=== PATIENT | female | born 1940 | race Caucasian/White ===

== ENCOUNTER 2018-07-30 10:53 | Emergency (ER) | payer MEDICARE, SELFPAY ==
[2018-07-30 11:14] VITALS: BP 200/71; PULSE 64; RESP 15; TEMP 36.9; O2SAT 95; BMI 29.8
--- NOTE | 2018-07-30 11:58 | PC.NURSE ---
patient resting on bed
--- NOTE | 2018-07-30 12:47 | ED.BACK ---
HPI - Back Pain/Injury <JACOB Roca - Last Filed: 07/30/18 22:22> General Chief Complaint: Back Pain/Injury Stated Complaint: lower back/leg pain Time Seen by Provider: 07/30/18 12:47 Source: patient and family Mode of arrival: ambulatory Limitations: no limitations History of Present Illness HPI Narrative: Patient presents with chief complaint of lower back pain with sciatica radiating down her right leg. She states she has had this before, but never this bad. She has a history of spinal surgery. She does complain of weakness and numbness in her right leg. She denies any saddle anesthesia or urinary or bowel incontinence. She states this got worse yesterday. She denies any fever, nausea, vomiting, diarrhea, chest pain, shortness of breath, chills. She denies any fall or trauma recently. Related Data Home Medications Medication Instructions Recorded Confirmed Calcium Carbonate/Vitamin D 1 cap PO QDAY #0 05/21/11 (#CALCIUM) FOLIC ACID (Folic Acid) 1 mg PO QDAY #0 05/21/11 WARFARIN SODIUM (Warfarin Sodium) 2.5 mg PO HS #0 08/27/11 Previous Rx's Medication Instructions Recorded gabapentin 100 mg PO TID 10 Days #30 cap 07/30/18 oxycodone-acetaminophen [Percocet] 1 tab PO Q4-6H PRN #20 tab 07/30/18 prednisone 40 mg PO DAILY #10 tab 07/30/18 Allergies Allergy/AdvReac Type Severity Reaction Status Date / Time atracurium [ATRACURIUM] Allergy Unknown Verified 07/30/18 11:14 mivacurium [MIVACURIUM] Allergy Unknown Verified 07/30/18 11:14 succinylcholine Allergy Unknown Verified 07/30/18 11:14 [SUCCINYLCHOLINE] enalaprilat [From VASOTEC] AdvReac Mild cough Verified 07/30/18 11:14 Review of Systems <JACOB Roca - Last Filed: 07/30/18 22:22> Review of Systems GENERAL: Denies chills, fatigue, malaise, fever, sweats. HEENT: Denies sinus pain, ear pain, sore throat, difficulty swallowing, dizziness. RESPIRATORY: Denies dyspnea, cough, wheezing, hemoptysis, sputum. CARDIOVASCULAR: Denies chest pain, palpitations, orthopnea, edema, GASTROINTESTINAL: Denies nausea, vomiting, abdominal pain, diarrhea, constipation, melena. : Denies dysuria, frequency, incontinence, hematuria, urinary retention. MUSCULOSKELETAL: See HPI SKIN: Denies rash, skin lesions, or other NEUROLOGIC: See HPI PSYCHIATRIC: No concerning psychosocial issues. 12 point review of systems is negative except for those stated above Exam <Josette Tovar, DIRECTORY OPERATOR-BC - Last Filed: 07/30/18 22:22> Narrative Exam Narrative: GENERAL: This is a well-nourished, well-developed patient, lying on stretcher HEAD: Atraumatic. Normocephalic. No temporal or scalp tenderness. EYES: Pupils equal round and reactive. Extraocular motions intact. No scleral icterus. No injection or drainage. ENT: Nose without bleeding, purulent drainage or septal hematoma. Throat without erythema, tonsillar hypertrophy or exudate. Uvula midline. Airway patent. NECK: Trachea midline. No JVD or lymphadenopathy. Supple, nontender, no meningeal signs. CARDIOVASCULAR: Regular rate and rhythm without murmurs, gallops, or rubs. RESPIRATORY: Clear to auscultation. Breath sounds equal bilaterally. No wheezes, rales, or rhonchi. GASTROINTESTINAL: Abdomen soft, non-tender, nondistended. No hepato-splenomegaly, or palpable masses. No guarding. EXTREMITIES: No clubbing, cyanosis, or edema. No joint tenderness, effusion, or edema noted. BACK: Nontender C-spine. Noted to have tenderness in the L-spine palpation. Tenderness bilateral paraspinal muscle palpation.. NEURO: AOx3. Cranial nerves grossly intact. Strength is equal upper extremities bilaterally. Noted weakness and right leg. Patient is unable to lift her will right leg more than 3 in off the bed, compared to approximately 6 in with her left leg. Pedal pulses are intact bilaterally. Rectal tone is intact. Rectal exam performed with RN at bedside. SKIN: No rash or erythema. No rash, erythema or ecchymosis noted lower spine. Initial Vital Signs Initial Vital Signs: Vital Signs Temperature 98.5 F 07/30/18 11:14 Pulse Rate 64 07/30/18 11:14 Respiratory Rate 15 07/30/18 11:14 Blood Pressure 200/71 H 07/30/18 11:14 Pulse Oximetry 95 07/30/18 11:14 <Josette Garza DO - Last Filed: 08/02/18 07:45> Initial Vital Signs Initial Vital Signs: Vital Signs Temperature 98.5 F 07/30/18 11:14 Pulse Rate 64 07/30/18 11:14 Respiratory Rate 15 07/30/18 11:14 Blood Pressure 200/71 H 07/30/18 11:14 Pulse Oximetry 95 07/30/18 11:14 Course <JACOB Roca - Last Filed: 07/30/18 22:22> Orders Ordered: ED Orders 07/30/18 13:00 Urinalysis and Microscopic Stat 07/30/18 13:08 CT lumbar spine wo con Stat Vital Signs - 8 hr 07/30/18 14:58 Pulse Rate 68 Respiratory Rate 15 Blood Pressure [Left Arm] 177/62 H Pulse Oximetry 97 <Josette Garza DO - Last Filed: 08/02/18 07:45> Orders Ordered: ED Orders 07/30/18 13:00 Urinalysis and Microscopic Stat 07/30/18 13:08 CT lumbar spine wo con Stat Vital Signs - 8 hr 07/30/18 14:58 Pulse Rate 68 Respiratory Rate 15 Blood Pressure [Left Arm] 177/62 H Pulse Oximetry 97 MDM - Back Pain/Injury <JACOB Roca Last Filed: 07/30/18 22:22> Differential Diagnosis Differential diagnosis: Likely lumbar radiculopathy, sciatica, strain of lumbar region, renal colic, pyelonephritis and thoracic back pain Lab Data Lab Results 07/30/18 Range/Units 13:00 Urine Color Yellow Urine Appearance Clear Urine pH 7.0 (4.5-8.0) Ur Specific [place] <=1.005 (1.000-1.035) Urine Protein Negative (Negative) Urine Glucose (UA) Negative (Normal) g/dL Urine Ketones Negative (NEGATIVE) Urine Occult Blood Negative (Negative) Urine Nitrate Negative (Negative) Urine Bilirubin Negative (NEGATIVE) Urine Urobilinogen 0.2 (0.2) E.U./dL Ur Leukocyte Esterase Negative (NEGATIVE) Urine RBC None seen (0-5/HPF) Urine WBC None seen (0-5/HPF) Ur Squamous Epith Cells 0-1 /hpf Urine Bacteria None seen (None) Ur Culture Indicated? Cult not indicated Micro UA Comment Microscopic normal Imaging Data spine ct: Radiologist's impression: [address] [address] [address] Scan Report Signed Patient: Shiela Brady MR#: [id number] : 1940 Acct:[id number] Age/Sex: 78 / F Date of Service: 07/30/18 Loc: ED Accession Number: [id number] Procedure: CT lumbar spine wo con Ordering Provider: Josette Tovar PROCEDURE: CT LUMBAR SPINE WO CON INDICATIONS: r leg weakness TECHNIQUE: Noncontrast 3 mm thick sections acquired from the T12 level to the sacrum. Sagittal and coronal reformats were constructed. For radiation dose reduction, the following was used: automated exposure control. COMPARISON: [facility], CT, ABDOMEN/PELVIS WITH CONTRAST, 02/21/2014, 11:04. [facility], CT, ABDOMEN/PELVIS WITH CONTRAST, 08/27/2011, 19:27. [facility], MR, L-SPINE W&WO CONTRAST, 03/08/2014, 7:53. FINDINGS: Image quality: Excellent. Bones: Patient is status post posterior fixation from L3-L5. Patient is status post L3-4 and L4-5 discectomy. There is mild leftward curvature of the lumbar spine centered at L1. This there is grade II L4 on L5 anterolisthesis and destruction of the anterior superior L5 endplate which is unchanged when compared with the MRI lumbar spine dated 03/08/14. Severe degenerative change is present throughout the lumbar spine including multilevel disc space narrowing, endplate sclerosis, osteophytosis, and subchondral cystic change. No acute fracture. No new wedge compression deformity. T12-L1: Severe disc space narrowing, endplate sclerosis, osteophytosis, subchondral cystic change. No canal stenosis. Severe right foraminal narrowing. L1-L2: Severe disc degeneration. Broad-based disc bulge. Moderate facet and ligamentum flavum hypertrophy. No canal stenosis. Moderate bilateral foraminal narrowing. L2-L3: Severe disc degeneration. Posterior fixation and right hemilaminectomy. No canal stenosis. Mild bilateral foraminal narrowing. L3-L4: Status post discectomy. Severe degenerative change at the endplates. Posterior fixation. Right hemilaminectomy. No canal stenosis. L4-L5: Grade II anterolisthesis. Posterior fixation. L4-5 discectomy. No canal stenosis. Mild bilateral foraminal stenosis. L5-S1: Mild degenerative change. Broad-based disc bulge. No canal stenosis. Mild right foraminal stenosis. Soft tissues: There are scattered sigmoid diverticula. No evidence for diverticulitis. The appendix is thin walled and gas filled. There are scattered atheromatous calcifications throughout the abdominal aorta and iliac arteries. There is an infrarenal IVC filter. Uterus is diminutive. There is a left lower pole renal cystic lesion. The gallbladder is surgically absent. A calcified thick-rimmed low-density cystic lesion is present midline at the level of the pelvis which measures 3.8 x 2.0 cm and is unchanged when compared with the CT from 2014. IMPRESSION: 1. 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 2. Grade II L4 on L5 anterolisthesis. 3. No canal stenosis of the lumbar spine. 4. Severe right T12-L1 foraminal stenosis and moderate bilateral L1-L2 foraminal narrowing. 5. Dictated by: Fatemeh Oliva M.D. on 07/30/2018 at 13:49 Approved by: Fatemeh Oliva M.D. on 07/30/2018 at 13:58 MDM Narrative Medical decision making narrative: Patient presents with chief complaint of lower back pain as well as right leg numbness and weakness. She does have a significant spinal surgery history. Thus given her weakness and numbness, a CT was performed. No acute changes were noted. Given that her rectal tone was intact and she denied any saddle anesthesia or bowel or bladder incontinence, discharge her with pain medication and instructed her to follow up with her primary care provider or her spinal surgeon. I also placed her on I burst of prednisone to decrease inflammation of the nerves. Of note she declined oxycodone or narcotics initially, but later called and I gave her prescription. I discussed at length with the patient and her partner to come back immediately if she has any saddle anesthesia, bowel and continence or bladder incontinence or any acute neurological concerns. She states understanding and has no questions or concerns upon discharge. <Josette Garza, - Last Filed: 08/02/18 07:45> Lab Data Lab Results 07/30/18 Range/Units 13:00 Urine Color Yellow Urine Appearance Clear Urine pH 7.0 (4.5-8.0) Ur Specific [place] <=1.005 (1.000-1.035) Urine Protein Negative (Negative) Urine Glucose (UA) Negative (Normal) g/dL Urine Ketones Negative (NEGATIVE) Urine Occult Blood Negative (Negative) Urine Nitrate Negative (Negative) Urine Bilirubin Negative (NEGATIVE) Urine Urobilinogen 0.2 (0.2) E.U./dL Ur Leukocyte Esterase Negative (NEGATIVE) Urine RBC None seen (0-5/HPF) Urine WBC None seen (0-5/HPF) Ur Squamous Epith Cells 0-1 /hpf Urine Bacteria None seen (None) Ur Culture Indicated? Cult not indicated Micro UA Comment Microscopic normal Discharge Plan Departure Patient Disposition: Home Clinical Impression: Back pain Discharge Date/Time: 07/30/18 15:02 Interventions: ED Discharge Assessment Last Done: 07/30/18 15:01 Instructions: DI for Low Back Pain, DI for Back Pain With Sciatica Activity Restrictions/Additional Instructions: I am giving you a prescription for steroid. Please take this over the next few days. I have also started her on gabapentin, which are on before. Please follow-up with her primary care provider as well as your spinal provider. As I discussed several times, please come back to the emergency department for any bowel incontinence, bladder incontinence or saddle anesthesia. These are emergencies. Prescriptions: New prednisone 20 mg tablet 40 mg PO DAILY Qty: 10 RF: 0 gabapentin 100 mg capsule 100 mg PO TID 10 Days Qty: 30 RF: 0 oxycodone-acetaminophen [Percocet] 5-325 mg tablet 1 tab PO Q4-6H PRN (Reason: pain) Qty: 20 RF: 0 No Action FOLIC ACID (Folic Acid) 1 mg PO QDAY Qty: 0 RF: 0 Calcium Carbonate/Vitamin D (#CALCIUM) 1 cap PO QDAY Qty: 0 RF: 0 WARFARIN SODIUM (Warfarin Sodium) 2.5 mg PO HS Qty: 0 RF: 0 Referrals: Kirill Concepcion MD [Primary Care Provider] - <Josette Garza DO - Last Filed: 08/02/18 07:45> Cosign ED Attending Cosignature Attestation: I was immediately available in the department for consultation. This documentation has been reviewed and I agree with assessment and plan. Supervised by Josette Garza DO
--- NOTE | 2018-07-30 13:08 | DI.CT.S_ITS ---
PROCEDURE: CT LUMBAR SPINE WO CON INDICATIONS: r leg weakness TECHNIQUE: Noncontrast 3 mm thick sections acquired from the T12 level to the sacrum. Sagittal and coronal reformats were constructed. For radiation dose reduction, the following was used: automated exposure control. COMPARISON: [facility], CT, ABDOMEN/PELVIS WITH CONTRAST, 02/21/2014, 11:04. [facility], CT, ABDOMEN/PELVIS WITH CONTRAST, 08/27/2011, 19:27. [facility], MR, L-SPINE W&WO CONTRAST, 03/08/2014, 7:53. FINDINGS: Image quality: Excellent. Bones: Patient is status post posterior fixation from L3-L5. Patient is status post L3-4 and L4-5 discectomy. There is mild leftward curvature of the lumbar spine centered at L1. This there is grade II L4 on L5 anterolisthesis and destruction of the anterior superior L5 endplate which is unchanged when compared with the MRI lumbar spine dated 03/08/14. Severe degenerative change is present throughout the lumbar spine including multilevel disc space narrowing, endplate sclerosis, osteophytosis, and subchondral cystic change. No acute fracture. No new wedge compression deformity. T12-L1: Severe disc space narrowing, endplate sclerosis, osteophytosis, subchondral cystic change. No canal stenosis. Severe right foraminal narrowing. L1-L2: Severe disc degeneration. Broad-based disc bulge. Moderate facet and ligamentum flavum hypertrophy. No canal stenosis. Moderate bilateral foraminal narrowing. L2-L3: Severe disc degeneration. Posterior fixation and right hemilaminectomy. No canal stenosis. Mild bilateral foraminal narrowing. L3-L4: Status post discectomy. Severe degenerative change at the endplates. Posterior fixation. Right hemilaminectomy. No canal stenosis. L4-L5: Grade II anterolisthesis. Posterior fixation. L4-5 discectomy. No canal stenosis. Mild bilateral foraminal stenosis. L5-S1: Mild degenerative change. Broad-based disc bulge. No canal stenosis. Mild right foraminal stenosis. Soft tissues: There are scattered sigmoid diverticula. No evidence for diverticulitis. The appendix is thin walled and gas filled. There are scattered atheromatous calcifications throughout the abdominal aorta and iliac arteries. There is an infrarenal IVC filter. Uterus is diminutive. There is a left lower pole renal cystic lesion. The gallbladder is surgically absent. A calcified thick-rimmed low-density cystic lesion is present midline at the level of the pelvis which measures 3.8 x 2.0 cm and is unchanged when compared with the CT from 2014. IMPRESSION: 1. 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 2. Grade II L4 on L5 anterolisthesis. 3. No canal stenosis of the lumbar spine. 4. Severe right T12-L1 foraminal stenosis and moderate bilateral L1-L2 foraminal narrowing. 5. Dictated by: Fatemeh Oliva M.D. on 07/30/2018 at 13:49 Approved by: Fatemeh Oliva M.D. on 07/30/2018 at 13:58
[2018-07-30 13:39] LABS: Bacteria Urine None Seen; RBC Urine None Seen (0-5/HPF); WBC Urine None Seen (0-5/HPF)
[2018-07-30 13:41] LABS: Appearance Urine UA CLEAR; Bilirubin Urine UA NEGATIVE (NEGATIVE); Color Urine UA YELLOW; Glucose Urine UA NEGATIVE (Normal); Ketones Urine UA NEGATIVE (NEGATIVE); Leukocyte Esterase Urine UA NEGATIVE (NEGATIVE); Nitrite Urine UA Negative (Negative); Occult Blood Urine UA NEGATIVE (Negative); Protein Urine UA NEGATIVE (Negative); Specific Gravity Urine UA <=1.005 (1.000-1.035); Urobilinogen Urine UA 0.2 E.U./dL (0.2)
[2018-07-30 13:49] LABS: Culture Indicated Urine Cult Not Indicated; Squamous Epithelial Cell Urine 0-1 /HPF; Urine Comments Microscopic Normal
--- NOTE | 2018-07-30 14:52 | ED_ITS ---
HPI - Back Pain/Injury <JACOB Roca - Last Filed: 07/30/18 22:22> General Chief Complaint: Back Pain/Injury Stated Complaint: lower back/leg pain Time Seen by Provider: 07/30/18 12:47 Source: patient and family Mode of arrival: ambulatory Limitations: no limitations History of Present Illness HPI Narrative: Patient presents with chief complaint of lower back pain with sciatica radiating down her right leg. She states she has had this before, but never this bad. She has a history of spinal surgery. She does complain of weakness and numbness in her right leg. She denies any saddle anesthesia or urinary or bowel incontinence. She states this got worse yesterday. She denies any fever, nausea, vomiting, diarrhea, chest pain, shortness of breath, chills. She denies any fall or trauma recently. Related Data Home Medications Medication Instructions Recorded Confirmed Calcium Carbonate/Vitamin D 1 cap PO QDAY #0 05/21/11 (#CALCIUM) FOLIC ACID (Folic Acid) 1 mg PO QDAY #0 05/21/11 WARFARIN SODIUM (Warfarin Sodium) 2.5 mg PO HS #0 08/27/11 Previous Rx's Medication Instructions Recorded gabapentin 100 mg PO TID 10 Days #30 cap 07/30/18 oxycodone-acetaminophen [Percocet] 1 tab PO Q4-6H PRN #20 tab 07/30/18 prednisone 40 mg PO DAILY #10 tab 07/30/18 Allergies Allergy/AdvReac Type Severity Reaction Status Date / Time atracurium [ATRACURIUM] Allergy Unknown Verified 07/30/18 11:14 mivacurium [MIVACURIUM] Allergy Unknown Verified 07/30/18 11:14 succinylcholine Allergy Unknown Verified 07/30/18 11:14 [SUCCINYLCHOLINE] enalaprilat [From VASOTEC] AdvReac Mild cough Verified 07/30/18 11:14 Review of Systems <JACOB Roca - Last Filed: 07/30/18 22:22> Review of Systems GENERAL: Denies chills, fatigue, malaise, fever, sweats. HEENT: Denies sinus pain, ear pain, sore throat, difficulty swallowing, dizziness. RESPIRATORY: Denies dyspnea, cough, wheezing, hemoptysis, sputum. CARDIOVASCULAR: Denies chest pain, palpitations, orthopnea, edema, GASTROINTESTINAL: Denies nausea, vomiting, abdominal pain, diarrhea, constipation, melena. : Denies dysuria, frequency, incontinence, hematuria, urinary retention. MUSCULOSKELETAL: See HPI SKIN: Denies rash, skin lesions, or other NEUROLOGIC: See HPI PSYCHIATRIC: No concerning psychosocial issues. 12 point review of systems is negative except for those stated above Exam <Josette Tovar, [employer] - Last Filed: 07/30/18 22:22> Narrative Exam Narrative: GENERAL: This is a well-nourished, well-developed patient, lying on stretcher HEAD: Atraumatic. Normocephalic. No temporal or scalp tenderness. EYES: Pupils equal round and reactive. Extraocular motions intact. No scleral icterus. No injection or drainage. ENT: Nose without bleeding, purulent drainage or septal hematoma. Throat without erythema, tonsillar hypertrophy or exudate. Uvula midline. Airway patent. NECK: Trachea midline. No JVD or lymphadenopathy. Supple, nontender, no meningeal signs. CARDIOVASCULAR: Regular rate and rhythm without murmurs, gallops, or rubs. RESPIRATORY: Clear to auscultation. Breath sounds equal bilaterally. No wheezes , rales, or rhonchi. GASTROINTESTINAL: Abdomen soft, non-tender, nondistended. No hepato-splenomegaly , or palpable masses. No guarding. EXTREMITIES: No clubbing, cyanosis, or edema. No joint tenderness, effusion, or edema noted. BACK: Nontender C-spine. Noted to have tenderness in the L-spine palpation. Tenderness bilateral paraspinal muscle palpation.. NEURO: AOx3. Cranial nerves grossly intact. Strength is equal upper extremities bilaterally. Noted weakness and right leg. Patient is unable to lift her will right leg more than 3 in off the bed, compared to approximately 6 in with her left leg. Pedal pulses are intact bilaterally. Rectal tone is intact. Rectal exam performed with RN at bedside. SKIN: No rash or erythema. No rash, erythema or ecchymosis noted lower spine. Initial Vital Signs Initial Vital Signs: Vital Signs Temperature 98.5 F 07/30/18 11:14 Pulse Rate 64 07/30/18 11:14 Respiratory Rate 15 07/30/18 11:14 Blood Pressure 200/71 H 07/30/18 11:14 Pulse Oximetry 95 07/30/18 11:14 <Josette Garza DO - Last Filed: 08/02/18 07:45> Initial Vital Signs Initial Vital Signs: Vital Signs Temperature 98.5 F 07/30/18 11:14 Pulse Rate 64 07/30/18 11:14 Respiratory Rate 15 07/30/18 11:14 Blood Pressure 200/71 H 07/30/18 11:14 Pulse Oximetry 95 07/30/18 11:14 Course <JACOB Roca - Last Filed: 07/30/18 22:22> Orders Ordered: ED Orders 07/30/18 13:00 Urinalysis and Microscopic Stat 07/30/18 13:08 CT lumbar spine wo con Stat Vital Signs - 8 hr 07/30/18 14:58 Pulse Rate 68 Respiratory Rate 15 Blood Pressure [Left Arm] 177/62 H Pulse Oximetry 97 <Josette Garza DO - Last Filed: 08/02/18 07:45> Orders Ordered: ED Orders 07/30/18 13:00 Urinalysis and Microscopic Stat 07/30/18 13:08 CT lumbar spine wo con Stat Vital Signs - 8 hr 07/30/18 14:58 Pulse Rate 68 Respiratory Rate 15 Blood Pressure [Left Arm] 177/62 H Pulse Oximetry 97 MDM - Back Pain/Injury <JACOB Roca Last Filed: 07/30/18 22:22> Differential Diagnosis Differential diagnosis: Likely lumbar radiculopathy, sciatica, strain of lumbar region, renal colic, pyelonephritis and thoracic back pain Lab Data Lab Results 07/30/18 Range/Units 13:00 Urine Color Yellow Urine Appearance Clear Urine pH 7.0 (4.5-8.0) Ur Specific [place] <=1.005 (1.000-1.035) Urine Protein Negative (Negative) Urine Glucose (UA) Negative (Normal) g/dL Urine Ketones Negative (NEGATIVE) Urine Occult Blood Negative (Negative) Urine Nitrate Negative (Negative) Urine Bilirubin Negative (NEGATIVE) Urine Urobilinogen 0.2 (0.2) E.U./dL Ur Leukocyte Esterase Negative (NEGATIVE) Urine RBC None seen (0-5/HPF) Urine WBC None seen (0-5/HPF) Ur Squamous Epith Cells 0-1 /hpf Urine Bacteria None seen (None) Ur Culture Indicated? Cult not indicated Micro UA Comment Microscopic normal Imaging Data spine ct: Radiologist's impression: [address] [address] [address] Scan Report Signed Patient: Shiela Brady MR#: [id number] : 1940 Acct:[id number] Age/Sex: 78 / F Date of Service: 07/30/18 Loc: ED Accession Number: [id number] Procedure: CT lumbar spine wo con Ordering Provider: Josette Tovar PROCEDURE: CT LUMBAR SPINE WO CON INDICATIONS: r leg weakness TECHNIQUE: Noncontrast 3 mm thick sections acquired from the T12 level to the sacrum. Sagittal and coronal reformats were constructed. For radiation dose reduction, the following was used: automated exposure control. COMPARISON: [facility], CT, ABDOMEN/PELVIS WITH CONTRAST, 02/21/2014, 11: 04. [facility], CT, ABDOMEN/PELVIS WITH CONTRAST, 08/27/2011, 19:27. [facility] , MR, L-SPINE W&WO CONTRAST, 03/08/2014, 7:53. FINDINGS: Image quality: Excellent. Bones: Patient is status post posterior fixation from L3-L5. Patient is status post L3-4 and L4-5 discectomy. There is mild leftward curvature of the lumbar spine centered at L1. This there is grade II L4 on L5 anterolisthesis and destruction of the anterior superior L5 endplate which is unchanged when compared with the MRI lumbar spine dated . Severe degenerative change is present throughout the lumbar spine including multilevel disc space narrowing, endplate sclerosis, osteophytosis, and subchondral cystic change. No acute fracture. No new wedge compression deformity. T12-L1: Severe disc space narrowing, endplate sclerosis, osteophytosis, subchondral cystic change. No canal stenosis. Severe right foraminal narrowing. L1-L2: Severe disc degeneration. Broad-based disc bulge. Moderate facet and ligamentum flavum hypertrophy. No canal stenosis. Moderate bilateral foraminal narrowing. L2-L3: Severe disc degeneration. Posterior fixation and right hemilaminectomy. No canal stenosis. Mild bilateral foraminal narrowing. L3-L4: Status post discectomy. Severe degenerative change at the endplates. Posterior fixation. Right hemilaminectomy. No canal stenosis. L4-L5: Grade II anterolisthesis. Posterior fixation. L4-5 discectomy. No canal stenosis. Mild bilateral foraminal stenosis. L5-S1: Mild degenerative change. Broad-based disc bulge. No canal stenosis. Mild right foraminal stenosis. Soft tissues: There are scattered sigmoid diverticula. No evidence for diverticulitis. The appendix is thin walled and gas filled. There are scattered atheromatous calcifications throughout the abdominal aorta and iliac arteries. There is an infrarenal IVC filter. Uterus is diminutive. There is a left lower pole renal cystic lesion. The gallbladder is surgically absent. A calcified thick-rimmed low-density cystic lesion is present midline at the level of the pelvis which measures 3.8 x 2.0 cm and is unchanged when compared with the CT from 2014. IMPRESSION: 1. 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 2. Grade II L4 on L5 anterolisthesis. 3. No canal stenosis of the lumbar spine. 4. Severe right T12-L1 foraminal stenosis and moderate bilateral L1-L2 foraminal narrowing. 5. Dictated by: Fatemeh Oliva M.D. on 07/30/2018 at 13:49 Approved by: Fatemeh Oliva M.D. on 07/30/2018 at 13:58 MDM Narrative Medical decision making narrative: Patient presents with chief complaint of lower back pain as well as right leg numbness and weakness. She does have a significant spinal surgery history. Thus given her weakness and numbness, a CT was performed. No acute changes were noted. Given that her rectal tone was intact and she denied any saddle anesthesia or bowel or bladder incontinence, discharge her with pain medication and instructed her to follow up with her primary care provider or her spinal surgeon. I also placed her on I burst of prednisone to decrease inflammation of the nerves. Of note she declined oxycodone or narcotics initially, but later called and I gave her prescription. I discussed at length with the patient and her partner to come back immediately if she has any saddle anesthesia, bowel and continence or bladder incontinence or any acute neurological concerns. She states understanding and has no questions or concerns upon discharge. <Josette Garza, - Last Filed: 08/02/18 07:45> Lab Data Lab Results 07/30/18 Range/Units 13:00 Urine Color Yellow Urine Appearance Clear Urine pH 7.0 (4.5-8.0) Ur Specific [place] <=1.005 (1.000-1.035) Urine Protein Negative (Negative) Urine Glucose (UA) Negative (Normal) g/dL Urine Ketones Negative (NEGATIVE) Urine Occult Blood Negative (Negative) Urine Nitrate Negative (Negative) Urine Bilirubin Negative (NEGATIVE) Urine Urobilinogen 0.2 (0.2) E.U./dL Ur Leukocyte Esterase Negative (NEGATIVE) Urine RBC None seen (0-5/HPF) Urine WBC None seen (0-5/HPF) Ur Squamous Epith Cells 0-1 /hpf Urine Bacteria None seen (None) Ur Culture Indicated? Cult not indicated Micro UA Comment Microscopic normal Discharge Plan Departure Patient Disposition: Home Clinical Impression: Back pain Discharge Date/Time: 07/30/18 15:02 Interventions: ED Discharge Assessment Last Done: 07/30/18 15:01 Instructions: DI for Low Back Pain, DI for Back Pain With Sciatica Activity Restrictions/Additional Instructions: I am giving you a prescription for steroid. Please take this over the next few days. I have also started her on gabapentin, which are on before. Please follow-up with her primary care provider as well as your spinal provider. As I discussed several times, please come back to the emergency department for any bowel incontinence, bladder incontinence or saddle anesthesia. These are emergencies. Prescriptions: New prednisone 20 mg tablet 40 mg PO DAILY Qty: 10 RF: 0 gabapentin 100 mg capsule 100 mg PO TID 10 Days Qty: 30 RF: 0 oxycodone-acetaminophen [Percocet] 5-325 mg tablet 1 tab PO Q4-6H PRN (Reason: pain) Qty: 20 RF: 0 No Action FOLIC ACID (Folic Acid) 1 mg PO QDAY Qty: 0 RF: 0 Calcium Carbonate/Vitamin D (#CALCIUM) 1 cap PO QDAY Qty: 0 RF: 0 WARFARIN SODIUM (Warfarin Sodium) 2.5 mg PO HS Qty: 0 RF: 0 Referrals: Kirill Concepcion MD [Primary Care Provider] - <Josette Garza DO - Last Filed: 08/02/18 07:45> Cosign ED Attending Cosignature Attestation: I was immediately available in the department for consultation. This documentation has been reviewed and I agree with assessment and plan. Supervised by Josette Garza DO
[2018-07-30 14:58] VITALS: BP 177/62; PULSE 68; RESP 15; O2SAT 97
== END 2018-07-30 15:02 | disposition home or self-care (01) ==
PROVIDERS: Emergency Provider Nurse Practitioner Family; Family Provider Internal Medicine; PCP Internal Medicine
DX: M54.9 Dorsalgia, unspecified (principal)
CPT/HCPCS: 72131; 81001; 99283; 99284

== ENCOUNTER → 2018-08-30 09:26 | Outpatient (CLI) | payer MEDICARE, SELFPAY ==
[2018-08-30 10:42] LABS: Add Manual Diff / Slide Review NO; Basophils Percent Auto 0.8 % (0-2); Eosinophils Percent Auto 6.1 % (2-4); Hematocrit 36.2 % (36-46); Lymphocytes Percent Auto 41.1 % (25-40); Mean Corpuscular HGB Conc 33.1 % (30-36); Mean Corpuscular Hemoglobin 29.3 PG (26-34); Mean Corpuscular Volume 88.3 fL (80-100); Monocytes Percent Auto 11.5 % (3-14); Neutrophils Absolute Auto 3200 /uL (3000-5900); Neutrophils Percent Auto 40.5 % (50-75); Platelet Count 289 X10^3/uL (150-400); Red Cell Distribution Width 13.8 % (11.6-14.8)
[2018-08-30 11:06] LABS: Alanine Aminotransferase 20 IU/L (9-52); Albumin 4.1 g/dL (3.5-5.0); Albumin Globulin Ratio 1.4 (1.0-2.8); Alkaline Phosphatase 69 U/L (38-126); Aspartate Aminotransferase 16 IU/L (14-36); BUN Creatinine Ratio 24.2 (6-22); Bilirubin Total 0.6 mg/dL (0.2-1.3); Blood Urea Nitrogen 29 mg/dL (7-17); Calcium 10.5 mg/dL (8.4-10.2); Carbon Dioxide 30 mmol/L (22-32); Chloride 103 mmol/L (98-107); Estimated Glomerular Filt Rate 43.6 mL/min (>60); Glucose 111 mg/dL (80-110); HEMOLYSIS < 15 (0-50); Potassium 4.1 mmol/L (3.4-5.1); Sodium 144 mmol/L (137-145); Total Protein 7.1 g/dL (6.3-8.2)
[2018-08-30 11:07] LABS: C-Reactive Protein Quant < 0.5 mg/dL (<1.0)
[2018-08-30 11:17] LABS: Vitamin D 25 Hydroxy (D3) 65.5 ng/mL (30.0-100.0)
== END ==
PROVIDERS: Family Provider Internal Medicine; Visit Provider Internal Medicine Rheumatology
DX: M81.0 Age-related osteoporosis without current pathological fracture (principal); M05.79 Rheumatoid arthritis with rheumatoid factor of multiple sites without organ or systems involvement
CPT/HCPCS: 36415; 80053; 82306; 85025; 86140

== ENCOUNTER 2019-01-14 10:53 | Emergency (ER) | payer MEDICARE, SELFPAY ==
[2019-01-14] VITALS (9 sets, daily range): BP systolic 124–170; BP diastolic 48–82; PULSE 56–73; RESP 19–26; TEMP 36.8; O2SAT 91–94; BMI 30.2
--- NOTE | 2019-01-14 11:11 | ED_ITS ---
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 She has been chronically anticoagulated since that time. She normally has a little bit of edema in both lower extremities. She returned home from a an extended trip to [facility] over the past 3 weeks, back for 2 days. She has increased edema in both lower extremities. Particularly she has a significant increase of edema in the left leg. There is some tenderness in the calf muscle. She has dyspnea, with a nonproductive cough. There is no chest pain. There is no orthopnea. She has no history of CHF. She has no hemoptysis. She has had no fever or chills. Related Data Home Medications Medication Instructions Recorded Confirmed amlodipine 5 mg PO DAILY 01/14/19 01/14/19 atorvastatin 20 mg PO BEDTIME 01/14/19 01/14/19 chlorthalidone 25 mg PO DAILY 01/14/19 01/14/19 cholecalciferol (vitamin D3) 2,000 unit PO BID 01/14/19 01/14/19 [Vitamin D3] clonidine HCl 0.1 mg PO BID 01/14/19 01/14/19 cyclosporine [Restasis] 5.5 ml EYE-BOTH BID 01/14/19 01/14/19 denosumab [Prolia] 60 mg SUBCUT [id number] 01/14/19 01/14/19 diltiazem HCl 240 mg PO DAILY 01/14/19 01/14/19 etanercept [Enbrel] 50 mg SUBCUT QWEEK 01/14/19 01/14/19 fexofenadine [Sadie Allergy] 180 mg PO DAILY 01/14/19 01/14/19 gabapentin 300 mg PO TID 01/14/19 01/14/19 hydroxyzine HCl 25 mg PO QID PRN 01/14/19 01/14/19 loteprednol etabonate [Lotemax] 10 ml EYE-BOTH BID 01/14/19 01/14/19 multivitamin 1 cap PO QAM 01/14/19 01/14/19 omeprazole 20 mg PO DAILY 01/14/19 01/14/19 warfarin 2.5 mg PO DAILY 01/14/19 01/14/19 zolpidem 5 mg PO BEDTIME PRN 01/14/19 01/14/19 Allergies Allergy/AdvReac Type Severity Reaction Status Date / Time atracurium [ATRACURIUM] Allergy Unknown Verified 07/30/18 11:14 mivacurium [MIVACURIUM] Allergy Unknown Verified 07/30/18 11:14 succinylcholine Allergy Unknown Verified 07/30/18 11:14 [SUCCINYLCHOLINE] enalaprilat [From VASOTEC] AdvReac Mild cough Verified 07/30/18 11:14 Review of Systems Review of Systems ROS Unobtainable: All systems reviewed & are unremarkable except as noted in HPI and below Constitutional Denies chills, Denies fever(s), Denies lethargy and Denies weakness ENT Ears, Nose, Mouth, and Throat: Denies change in voice, Denies neck pain, Denies sinus pressure and Denies sore throat Cardiovascular Denies chest pain, Denies irregular heart rhythm, Reports leg edema, Denies lightheadedness, Denies palpitations, Reports dyspnea and Denies orthopnea Respiratory Denies cough, Reports dyspnea, Denies wheezing and Reports other (No hemoptysis) Gastrointestinal Gastrointestinal: Denies abdominal pain Musculoskeletal Denies back pain and Denies neck pain Integumentary/Breasts Denies pruritus, Denies erythema, Denies rash and Denies wounds Neurologic Denies weakness Endocrine Denies palpitations Allergic/Immunologic Denies wheezing PFSH Medical History History of hyperlipidemia (Acute) History of pulmonary embolism (Acute) Hypertension (Acute) No significant past surgical history (Acute) Social History Smoking Status: Never smoker Social History Smoking Status: Never smoker Exam Initial Vital Signs Initial Vital Signs: Vital Signs Temperature 98.3 F 01/14/19 11:01 Pulse Rate 73 01/14/19 11:01 Respiratory Rate 23 01/14/19 11:01 Blood Pressure 170/65 H 01/14/19 11:01 Pulse Oximetry 93 01/14/19 11:01 Const General: cooperative and well developed Nutritional Appearance: well nourished Orientation: alert, awake, oriented x3 and not confused HENNY Head: normocephalic and atraumatic Nose: external nose normal Face and sinus: sinuses nontender and face symmetric Mouth: moist mucous membranes Throat: posterior oropharynx normal, tonsils normal and uvula midline Neck Neck: normal visual inspection, trachea midline, No lymphadenopathy, No midline deformity and No JVD Lymphatic: No lymphedema Chest Chest: normal inspection of the chest Resp Other: Slight decreased breath sounds in the right upper lung. No rales, rhonchi or wheezes. Cardio Rate: regular rate Rhythm: regular rhythm Heart Sounds: no click, no gallops, no murmurs and no rubs Pulses: normal peripheral pulses GI Inspection: non-distended Palpation: soft, no hepatosplenomegaly, No guarding, No pulsatile mass and No tender Auscultation: normal bowel sounds Back/Spine/Pelvis Back: No CVA tenderness Skin General: no rashes or lesions noted, No jaundice and No petechiae Neuro General: alert, oriented x3, gait normal and no focal motor deficits Speech: speech normal Extrem General: full ROM, calf tenderness (Mild left calf tenderness.) and edema (4+ bilateral edema. Normal dorsalis pedis pulses.) Psych Appearance: well kempt Mental Status: mental status grossly normal Attitude: cooperative Thought Content: normal and suicidality Judgment: judgment good Course Orders Ordered: ED Orders 01/14/19 11:05 Consult to Respiratory Therapy Evaluate & Treat EKG-12 Lead Stat 01/14/19 11:25 B Type Natriuretic Peptide Stat Complete Blood Count AUTO DIFF Stat Comprehensive Metabolic Panel Stat PTT [Partial Thromboplastin Time] Stat Prothrombin Time INR Stat Troponin & CK Cardiac Panel Stat 01/14/19 13:29 CT angio chest PE protocol Stat Discontinued Medications Albuterol/Ipratropium (Duoneb) 3 ml INH NOW ONE Stop: 01/14/19 15:05 Last Admin: 01/14/19 15:14 Dose: 3 ml Warfarin Sodium (Coumadin) 5 mg PO NOW ONE Stop: 01/14/19 15:34 Vital Signs - 8 hr 01/14/19 11:01 01/14/19 11:30 01/14/19 12:38 Temperature 98.3 F Pulse Rate 73 68 63 Respiratory Rate 23 19 20 Blood Pressure 170/65 H Blood Pressure [Right Arm] 151/62 H 157/82 H Pulse Oximetry 93 92 91 01/14/19 15:05 01/14/19 15:15 Temperature Pulse Rate 58 L 56 L Respiratory Rate 20 26 H Blood Pressure Blood Pressure [Right Arm] 129/55 L Pulse Oximetry 94 93 MDM - SOB/Dyspnea Lab Data Result diagrams: 01/14/19 11:25 01/14/19 11:25 Lab Results 01/14/19 01/14/19 01/14/19 Range/Units 11:25 11:25 11:25 WBC 9.0 (4.5-11.0) X10^3/uL RBC 4.25 (4.0-5.2) X10^6/uL Hgb 12.4 (12.0-16.0) g/dL Hct 36.7 (36-46) % MCV 86.5 (80-100) fL MCH 29.1 (26-34) PG MCHC 33.6 (30-36) % RDW 13.6 (11.6-14.8) % Plt Count 246 (150-400) X10^3/uL Neut % (Auto) 45.0 L (50-75) % Lymph % (Auto) 34.0 (25-40) % [place] % (Auto) 13.9 (3-14) % Eos % (Auto) 6.4 H (2-4) % Baso % (Auto) 0.7 (0-2) % Neut # (Auto) 4000 (8573-9416) /uL Lymph # (Auto) 3100 (2161-5725) /uL [place] # (Auto) 1200 H (0-900) /uL Eos # (Auto) 600 H (0-450) /uL Baso # (Auto) 100 (0-100) /uL PT (10.1-12.7) SECONDS INR (0.9-1.3) APTT (26.4-36.2) SECONDS Sodium 138 (137-145) mmol/L Potassium 3.4 (3.4-5.1) mmol/L Chloride 100 (98-107) mmol/L Carbon Dioxide 28 (22-32) mmol/L BUN 31 H (7-17) mg/dL Creatinine 1.40 H (0.52-1.04) mg/dL Estimated GFR 36.4 L (>60) mL/min BUN/Creatinine Ratio 22.1 H (6-22) Glucose 97 (80-110) mg/dL Calcium 9.3 (8.4-10.2) mg/dL Total Bilirubin 0.6 (0.2-1.3) mg/dL AST 22 (14-36) IU/L ALT 23 (9-52) IU/L Alkaline Phosphatase 76 (38-126) U/L Total Creatine Kinase 37 (30-135) U/L CK-MB (CK-2) TNP CK-MB (CK-2) Rel Index TNP Troponin I < 0.012 (0.01-0.034) ng/mL B-Natriuretic Peptide (<100) Total Protein 7.9 (6.3-8.2) g/dL Albumin 4.2 (3.5-5.0) g/dL Globulin 3.7 (1.7-4.1) g/dL Albumin/Globulin Ratio 1.1 (1.0-2.8) 01/14/19 01/14/19 Range/Units 11:25 11:25 WBC (4.5-11.0) X10^3/uL RBC (4.0-5.2) X10^6/uL Hgb (12.0-16.0) g/dL Hct (36-46) % MCV (80-100) fL MCH (26-34) PG MCHC (30-36) % RDW (11.6-14.8) % Plt Count (150-400) X10^3/uL Neut % (Auto) (50-75) % Lymph % (Auto) (25-40) % [place] % (Auto) (3-14) % Eos % (Auto) (2-4) % Baso % (Auto) (0-2) % Neut # (Auto) (2898-8567) /uL Lymph # (Auto) (9713-1460) /uL [place] # (Auto) (0-900) /uL Eos # (Auto) (0-450) /uL Baso # (Auto) (0-100) /uL PT 16.4 H (10.1-12.7) SECONDS INR 1.4 H (0.9-1.3) APTT 34 (26.4-36.2) SECONDS Sodium (137-145) mmol/L Potassium (3.4-5.1) mmol/L Chloride (98-107) mmol/L Carbon Dioxide (22-32) mmol/L BUN (7-17) mg/dL Creatinine (0.52-1.04) mg/dL Estimated GFR (>60) mL/min BUN/Creatinine Ratio (6-22) Glucose (80-110) mg/dL Calcium (8.4-10.2) mg/dL Total Bilirubin (0.2-1.3) mg/dL AST (14-36) IU/L ALT (9-52) IU/L Alkaline Phosphatase (38-126) U/L Total Creatine Kinase (30-135) U/L CK-MB (CK-2) CK-MB (CK-2) Rel Index Troponin I (0.01-0.034) ng/mL B-Natriuretic Peptide < 100 (<100) Total Protein (6.3-8.2) g/dL Albumin (3.5-5.0) g/dL Globulin (1.7-4.1) g/dL Albumin/Globulin Ratio (1.0-2.8) Imaging Data CT scan - chest: Radiologist's impression: [place] [address] CT Scan Report Signed Patient: Shiela Brady [facility]#: [id number] : 1Acct:[id number] Age/Sex: 79 / FDate of Service: 01/14/19 Loc: ED Accession Number: [id number] Procedure: CT angio chest PE protocol Ordering Provider: Armen Baer M.D. PROCEDURE: CT ANGIO CHEST PE PROTOCOL INDICATIONS: Dyspnea. recent travel. H/O PE TECHNIQUE: After the administration of intravenous contrast, 2 mm thick sections acquired from the pulmonary apices to the posterior costophrenic angles. 3-dimensional maximum intensity projection (MIP) coronal and sagittal reformats were then acquired through the thorax. For radiation dose reduction, the following was used: automated exposure control, adjustment of mA and/or kV according to patient size. COMPARISON: CT abdomen and pelvis dated 03/14/2011. FINDINGS: Image quality: Excellent. Pulmonary arteries: Pulmonary arteries are normal in size, and demonstrate no intraluminal filling defects to suggest central pulmonary embolism. Lungs and pleura: There is right greater than left bibasilar atelectasis. No focal consolidation or suspicious pulmonary mass/nodule. No pleural effusions or pneumothorax. Central and peripheral airways are patent. Mediastinum: Heart size is normal, without pericardial effusion. Atheromatous coronary calcifications are present. No mediastinal or hilar adenopathy. Thoracic aorta is normal in caliber and enhancement. Esophagus is normal in caliber, without hiatal hernia. Bones and chest wall: No suspicious bony lesions. Ribs and thoracic spine appear intact throughout. Bilateral breast implants are noted. Thyroid gland is unremarkable. No axillary or supraclavicular adenopathy. Multilevel thoracic spondylosis. No scott spicious osseous lesions. No acute compression fractures. Abdomen: Incomplete evaluation of bilateral renal hypodensities that appear to be larger than hypodensities seen on comparison abdomen and pelvis CT dated 03/14/2011. Remainder of the visualized upper abdominal solid organs appear normal in the early arterial phase of enhancement. Small hiatal hernia. IMPRESSION: 1. No acute pulmonary emboli identified. 2. Right greater than left bibasilar atelectasis. Otherwise, no focal airspace disease identified. 3. Interval enlargement of bilateral renal hypodensities likely representing cysts. These are incompletely evaluated. Consider outpatient renal ultrasound for further evaluation. Dictated by: Reza Qureshi M.D. on 01/14/2019 14:40 Approved by: Reza Qureshi M.D. on 01/14/2019 at 14:54 ECG Data Attestation: I personally reviewed and interpreted this ECG as follows: (Normal sinus rhythm rate 69 bpm. First-degree AV block. Moderate T-wave abnormality. No acute ST T wave changes. No acute findings.) Discharge Plan Departure Patient Disposition: Home Clinical Impression: Atelectasis Instructions: Atelectasis Activity Restrictions/Additional Instructions: There are areas of your lung that have close down, they need to be re-expanded. I have started you on incentive spirometry, as taught by the respiratory therapist. I would recommend you recheck with her doctor later this week. If he have worsening difficulty breathing return the ER. If the symptoms persist, her doctor may want to do an echocardiogram on her heart. Also, you're INR level was low, 1.4. I gave you an extra dose of Coumadin. Perez ve her doctor recheck her level later this week. Prescriptions: No Action clonidine HCl 0.1 mg Tablet 0.1 mg PO BID RF: 0 atorvastatin 20 mg Tablet 20 mg PO BEDTIME RF: 0 warfarin 2.5 mg Tablet 2.5 mg PO DAILY RF: 0 diltiazem HCl 240 mg Capsule,Extended Release 24 Hr 240 mg PO DAILY RF: 0 chlorthalidone 25 mg Tablet 25 mg PO DAILY RF: 0 fexofenadine [Sadie Allergy] 180 mg Tablet 180 mg PO DAILY RF: 0 amlodipine 5 mg Tablet 5 mg PO DAILY RF: 0 gabapentin 300 mg Capsule 300 mg PO TID RF: 0 omeprazole 20 mg Capsule,Delayed Release(Dr/Ec) 20 mg PO DAILY RF: 0 hydroxyzine HCl 25 mg Tablet 25 mg PO QID PRN (Reason: Itching) RF: 0 zolpidem 5 mg Tablet 5 mg PO BEDTIME PRN (Reason: Sleep) RF: 0 multivitamin Capsule 1 cap PO QAM RF: 0 Restasis 0.05 % Dropperette 5.5 ml EYE-BOTH BID RF: 0 Enbrel 25 mg/0.5mL (0.51) Syringe 50 mg SUBCUT QWEEK RF: 0 cholecalciferol (vitamin D3) [Vitamin D3] 2,000 unit Capsule 2,000 unit PO BID RF: 0 Prolia 60 mg/mL Syringe 60 mg SUBCUT [id number] RF: 0 Lotemax 0.5 % Drops,Gel 10 ml EYE-BOTH BID RF: 0 Referrals: Kirill Concepcion MD [Primary Care Provider] -
[2019-01-14 11:33] LABS: Add Manual Diff / Slide Review NO; Basophils Absolute Auto 100 /uL (0-100); Basophils Percent Auto 0.7 % (0-2); Eosinophils Absolute Auto 600 /uL (0-450); Eosinophils Percent Auto 6.4 % (2-4); Hematocrit 36.7 % (36-46); Hemoglobin 12.4 g/dL (12.0-16.0); Lymphocytes Absolute Auto 3100 /uL (1100-4500); Mean Corpuscular HGB Conc 33.6 % (30-36); Mean Corpuscular Hemoglobin 29.1 PG (26-34); Mean Corpuscular Volume 86.5 fL (80-100); Monocytes Absolute Auto 1200 /uL (0-900); Monocytes Percent Auto 13.9 % (3-14); Neutrophils Absolute Auto 4000 /uL (1500-7000); Platelet Count 246 X10^3/uL (150-400); Red Blood Cell Count 4.25 X10^6/uL (4.0-5.2); Red Cell Distribution Width 13.6 % (11.6-14.8)
[2019-01-14 11:42] LABS: Alanine Aminotransferase 23 IU/L (9-52); Albumin 4.2 g/dL (3.5-5.0); Albumin Globulin Ratio 1.1 (1.0-2.8); Alkaline Phosphatase 76 U/L (38-126); Aspartate Aminotransferase 22 IU/L (14-36); BUN Creatinine Ratio 22.1 (6-22); Bilirubin Total 0.6 mg/dL (0.2-1.3); Blood Urea Nitrogen 31 mg/dL (7-17); Calcium 9.3 mg/dL (8.4-10.2); Carbon Dioxide 28 mmol/L (22-32); Chloride 100 mmol/L (98-107); Estimated Glomerular Filt Rate 36.4 mL/min (>60); Globulin 3.7 g/dL (1.7-4.1); Glucose 97 mg/dL (80-110); HEMOLYSIS 15 (0-50); Potassium 3.4 mmol/L (3.4-5.1); Sodium 138 mmol/L (137-145); Total Protein 7.9 g/dL (6.3-8.2)
[2019-01-14 12:12] LABS: Creatine Kinase 37 U/L (30-135)
[2019-01-14 12:13] LABS: INR 1.4 (0.9-1.3); Prothrombin Time 16.4 SECONDS (10.1-12.7)
[2019-01-14 12:16] LABS: PTT Partial Thromboplastin Tim 34 SECONDS (26.4-36.2)
[2019-01-14 12:24] LABS: Troponin I < 0.012 ng/mL (0.01-0.034)
[2019-01-14 12:32] LABS: B Type Natriuretic Peptide < 100 (<100)
--- NOTE | 2019-01-14 13:29 | DI.CT.S_ITS ---
PROCEDURE: CT ANGIO CHEST PE PROTOCOL INDICATIONS: Dyspnea. recent travel. H/O PE TECHNIQUE: After the administration of intravenous contrast, 2 mm thick sections acquired from the pulmonary apices to the posterior costophrenic angles. 3-dimensional maximum intensity projection (MIP) coronal and sagittal reformats were then acquired through the thorax. For radiation dose reduction, the following was used: automated exposure control, adjustment of mA and/or kV according to patient size. COMPARISON: CT abdomen and pelvis dated 03/14/2011. FINDINGS: Image quality: Excellent. Pulmonary arteries: Pulmonary arteries are normal in size, and demonstrate no intraluminal filling defects to suggest central pulmonary embolism. Lungs and pleura: There is right greater than left bibasilar atelectasis. No focal consolidation or suspicious pulmonary mass/nodule. No pleural effusions or pneumothorax. Central and peripheral airways are patent. Mediastinum: Heart size is normal, without pericardial effusion. Atheromatous coronary calcifications are present. No mediastinal or hilar adenopathy. Thoracic aorta is normal in caliber and enhancement. Esophagus is normal in caliber, without hiatal hernia. Bones and chest wall: No suspicious bony lesions. Ribs and thoracic spine appear intact throughout. Bilateral breast implants are noted. Thyroid gland is unremarkable. No axillary or supraclavicular adenopathy. Multilevel thoracic spondylosis. No suspicious osseous lesions. No acute compression fractures. Abdomen: Incomplete evaluation of bilateral renal hypodensities that appear to be larger than hypodensities seen on comparison abdomen and pelvis CT dated 03/14/2011. Remainder of the visualized upper abdominal solid organs appear normal in the early arterial phase of enhancement. Small hiatal hernia. IMPRESSION: 1. No acute pulmonary emboli identified. 2. Right greater than left bibasilar atelectasis. Otherwise, no focal airspace disease identified. 3. Interval enlargement of bilateral renal hypodensities likely representing cysts. These are incompletely evaluated. Consider outpatient renal ultrasound for further evaluation. Dictated by: Reza Qureshi M.D. on 01/14/2019 14:40 Approved by: Reza Qureshi M.D. on 01/14/2019 at 14:54
[2019-01-14] MEDS: ALBUTEROL/IPRATROPIUM 3 ML AMPUL INH (15:14)
[2019-01-14] MEDS: WARFARIN 5 MG TABLET PO (15:51)
--- NOTE | 2019-01-14 16:04 | PC.NURSE ---
Patient dropped to 89% oxygen saturation at 1500. Placed on 2L nasal cannula and she is up to 94%. Back on room air at time of discharge and 96% after her breathing treatment and incentive spirometry teaching.
== END 2019-01-14 16:07 | disposition home or self-care (01) ==
PROVIDERS: Emergency Provider Emergency Medicine; PCP Internal Medicine
DX: J98.11 Atelectasis (principal); Z86.711 Personal history of pulmonary embolism; Z79.01 Long term (current) use of anticoagulants; I44.0 Atrioventricular block, first degree
CPT/HCPCS: 36591; 71275; 80053; 82550; 83880; 84484; 85025; 85610; 85730; 93005; 93010; 94640; 99283; 99285; Q9967

== ENCOUNTER → 2019-01-17 10:09 | Outpatient (CLI) | payer MEDICARE, SELFPAY ==
[2019-01-17 11:05] LABS: Add Manual Diff / Slide Review NO; Basophils Absolute Auto 100 /uL (0-100); Basophils Percent Auto 1.1 % (0-2); Eosinophils Absolute Auto 300 /uL (0-450); Eosinophils Percent Auto 2.9 % (2-4); Hematocrit 38.5 % (36-46); Hemoglobin 12.7 g/dL (12.0-16.0); Lymphocytes Absolute Auto 4700 /uL (1100-4500); Lymphocytes Percent Auto 50.7 % (25-40); Mean Corpuscular HGB Conc 33.1 % (30-36); Mean Corpuscular Hemoglobin 28.9 PG (26-34); Mean Corpuscular Volume 87.2 fL (80-100); Monocytes Absolute Auto 1100 /uL (0-900); Neutrophils Absolute Auto 3100 /uL (1500-7000); Neutrophils Percent Auto 33.3 % (50-75); Platelet Count 188 X10^3/uL (150-400); Red Blood Cell Count 4.41 X10^6/uL (4.0-5.2); Red Cell Distribution Width 13.7 % (11.6-14.8); White Blood Cell Count 9.2 X10^3/uL (4.5-11.0)
[2019-01-17 11:45] LABS: Alanine Aminotransferase 33 IU/L (9-52); Albumin 4.1 g/dL (3.5-5.0); Albumin Globulin Ratio 1.2 (1.0-2.8); Alkaline Phosphatase 66 U/L (38-126); Aspartate Aminotransferase 34 IU/L (14-36); Bilirubin Total 0.5 mg/dL (0.2-1.3); Blood Urea Nitrogen 26 mg/dL (7-17); C-Reactive Protein Quant 0.7 mg/dL (<1.0); Calcium 9.2 mg/dL (8.4-10.2); Carbon Dioxide 28 mmol/L (22-32); Chloride 98 mmol/L (98-107); Estimated Glomerular Filt Rate 39.6 mL/min (>60); Globulin 3.4 g/dL (1.7-4.1); Glucose 101 mg/dL (80-110); HEMOLYSIS < 15 (0-50); Potassium 3.7 mmol/L (3.4-5.1); Sodium 138 mmol/L (137-145); Total Protein 7.5 g/dL (6.3-8.2)
[2019-01-17 13:12] LABS: Clostridium Difficile Tox PCR Negative for C. diff
== END ==
PROVIDERS: Family Provider Internal Medicine; PCP Internal Medicine; Visit Provider Internal Medicine Rheumatology
DX: M05.79 Rheumatoid arthritis with rheumatoid factor of multiple sites without organ or systems involvement (principal); Z79.899 Other long term (current) drug therapy
CPT/HCPCS: 36415; 80053; 85025; 86140; 86317; 87177; 87493

== ENCOUNTER → 2019-05-09 15:10 | Outpatient (CLI) | payer MEDICARE, SELFPAY ==
[2019-05-09 15:58] LABS: Add Manual Diff / Slide Review NO; Basophils Absolute Auto 100 /uL (0-100); Basophils Percent Auto 1.1 % (0-2); Eosinophils Absolute Auto 500 /uL (0-450); Eosinophils Percent Auto 4.9 % (2-4); Hematocrit 38.1 % (36-46); Hemoglobin 12.9 g/dL (12.0-16.0); Lymphocytes Absolute Auto 4200 /uL (1100-4500); Lymphocytes Percent Auto 43.1 % (25-40); Mean Corpuscular HGB Conc 33.8 % (30-36); Mean Corpuscular Hemoglobin 29.4 PG (26-34); Mean Corpuscular Volume 86.9 fL (80-100); Monocytes Absolute Auto 900 /uL (0-900); Monocytes Percent Auto 9.2 % (3-14); Neutrophils Absolute Auto 4100 /uL (1500-7000); Neutrophils Percent Auto 41.7 % (50-75); Platelet Count 332 X10^3/uL (150-400); Red Blood Cell Count 4.39 X10^6/uL (4.0-5.2); Red Cell Distribution Width 13.4 % (11.6-14.8); White Blood Cell Count 9.8 X10^3/uL (4.5-11.0)
[2019-05-09 16:21] LABS: Alanine Aminotransferase 9 IU/L (9-52); Albumin 4.2 g/dL (3.5-5.0); Albumin Globulin Ratio 1.1 (1.0-2.8); Alkaline Phosphatase 80 U/L (38-126); Aspartate Aminotransferase 17 IU/L (14-36); BUN Creatinine Ratio 20.7 (6-22); Bilirubin Total 0.6 mg/dL (0.2-1.3); Blood Urea Nitrogen 29 mg/dL (7-17); C-Reactive Protein Quant 0.5 mg/dL (<1.0); Carbon Dioxide 29 mmol/L (22-32); Chloride 102 mmol/L (98-107); Estimated Glomerular Filt Rate 36.4 mL/min (>60); Globulin 3.8 g/dL (1.7-4.1); Glucose 91 mg/dL (80-110); HEMOLYSIS 22 (0-50); Potassium 3.5 mmol/L (3.4-5.1); Sodium 142 mmol/L (137-145)
== END ==
PROVIDERS: Internal Medicine Rheumatology; Family Provider Internal Medicine; PCP Internal Medicine; Visit Provider Internal Medicine
DX: M05.79 Rheumatoid arthritis with rheumatoid factor of multiple sites without organ or systems involvement (principal); Z79.899 Other long term (current) drug therapy
CPT/HCPCS: 36415; 80053; 85025; 86140

== ENCOUNTER → 2019-08-13 08:15 | Outpatient (CLI) | payer MEDICARE, SELFPAY ==
[2019-08-13 09:24] LABS: Add Manual Diff / Slide Review NO; Basophils Absolute Auto 100 /uL (0-100); Basophils Percent Auto 0.6 % (0-2); Eosinophils Absolute Auto 300 /uL (0-450); Eosinophils Percent Auto 3.5 % (2-4); Hematocrit 35.6 % (36-46); Lymphocytes Absolute Auto 3900 /uL (1100-4500); Lymphocytes Percent Auto 43.8 % (25-40); Mean Corpuscular HGB Conc 33.7 % (30-36); Mean Corpuscular Hemoglobin 29.7 PG (26-34); Mean Corpuscular Volume 88.1 fL (80-100); Monocytes Absolute Auto 600 /uL (0-900); Monocytes Percent Auto 6.7 % (3-14); Neutrophils Absolute Auto 4100 /uL (1500-7000); Neutrophils Percent Auto 45.4 % (50-75); Platelet Count 267 X10^3/uL (150-400); Red Blood Cell Count 4.04 X10^6/uL (4.0-5.2); Red Cell Distribution Width 14.8 % (11.6-14.8)
[2019-08-13 10:02] LABS: Alanine Aminotransferase 19 IU/L (9-52); Albumin 4.1 g/dL (3.5-5.0); Albumin Globulin Ratio 1.3 (1.0-2.8); Alkaline Phosphatase 85 U/L (38-126); Aspartate Aminotransferase 18 IU/L (14-36); BUN Creatinine Ratio 20.9 (6-22); Bilirubin Total 0.5 mg/dL (0.2-1.3); Blood Urea Nitrogen 23 mg/dL (7-17); C-Reactive Protein Quant < 0.5 mg/dL (<1.0); Calcium 10.2 mg/dL (8.4-10.2); Carbon Dioxide 30 mmol/L (22-32); Chloride 99 mmol/L (98-107); Globulin 3.2 g/dL (1.7-4.1); Glucose 197 mg/dL (80-110); HEMOLYSIS < 15 (0-50); Potassium 3.7 mmol/L (3.4-5.1); Sodium 140 mmol/L (137-145); Total Protein 7.3 g/dL (6.3-8.2)
== END ==
PROVIDERS: Family Provider Internal Medicine; PCP Internal Medicine; Visit Provider Internal Medicine Rheumatology
DX: M05.79 Rheumatoid arthritis with rheumatoid factor of multiple sites without organ or systems involvement (principal); Z79.899 Other long term (current) drug therapy
CPT/HCPCS: 36415; 80053; 85025; 86140

== ENCOUNTER → 2019-09-20 08:06 | Outpatient (CLI) | payer MEDICARE, SELFPAY ==
--- NOTE | 2019-09-20 | DI.MG.S_ITS ---
BILATERAL DIGITAL SCREENING MAMMOGRAM 3D/2D WITH CAD WITH AUGMENTATION: 09/20/2019 CLINICAL: Routine screening. Family history of breast cancer. Comparison is made to exams dated: 09/02/2017 mammogram, 09/01/2016 mammogram, and 01/08/2010 mammogram - [facility]. There are scattered fibroglandular elements in both breasts. Current study was also evaluated with a Computer Aided Detection (CAD) system. Bilateral breast implants are stable. There are benign vascular calcifications in both breasts. No significant masses, calcifications, or other findings are seen in either breast. There has been no significant interval change. IMPRESSION: There is no mammographic evidence of malignancy. A 1 year screening mammogram is recommended. This exam was interpreted at Station ID: [id number]. NOTE: For mammograms, a report in lay terms will be sent to the patient. Approximately 15% of breast malignancies will not be visualized mammographically. In the management of a palpable breast mass, a negative mammogram must not discourage biopsy of a clinically suspicious lesion. Electronically Signed By: Abhishek cobos/sylvia:09/20/2019 09:52:30 letter sent: Normal Exam ACR BI-RADS Category 2: Benign Finding(s) 3342F
== END ==
PROVIDERS: PCP Internal Medicine; Visit Provider Internal Medicine
DX: Z12.31 Encounter for screening mammogram for malignant neoplasm of breast (principal); Z80.3 Family history of malignant neoplasm of breast
CPT/HCPCS: 77063; 77067

== ENCOUNTER → 2019-11-08 11:35 | Outpatient (CLI) | payer MEDICARE, SELFPAY ==
[2019-11-08 12:02] LABS: Add Manual Diff / Slide Review NO; Basophils Absolute Auto 100 /uL (0-100); Basophils Percent Auto 0.8 % (0-2); Eosinophils Absolute Auto 500 /uL (0-450); Eosinophils Percent Auto 5.1 % (2-4); Hematocrit 37.1 % (36-46); Hemoglobin 12.7 g/dL (12.0-16.0); Lymphocytes Absolute Auto 3800 /uL (1100-4500); Lymphocytes Percent Auto 37.5 % (25-40); Mean Corpuscular HGB Conc 34.2 % (30-36); Mean Corpuscular Hemoglobin 30.6 PG (26-34); Mean Corpuscular Volume 89.6 fL (80-100); Monocytes Absolute Auto 900 /uL (0-900); Monocytes Percent Auto 9.1 % (3-14); Neutrophils Absolute Auto 4800 /uL (1500-7000); Neutrophils Percent Auto 47.5 % (50-75); Platelet Count 266 X10^3/uL (150-400); Red Blood Cell Count 4.14 X10^6/uL (4.0-5.2); Red Cell Distribution Width 13.2 % (11.6-14.8)
[2019-11-08 13:12] LABS: Alanine Aminotransferase 15 IU/L (<35); Albumin 4.1 g/dL (3.5-5.0); Albumin Globulin Ratio 1.3 (1.0-2.8); Alkaline Phosphatase 88 U/L (38-126); Aspartate Aminotransferase 22 IU/L (14-36); BUN Creatinine Ratio 18.3 (6-22); Bilirubin Total 0.6 mg/dL (0.2-1.3); Blood Urea Nitrogen 22 mg/dL (7-17); C-Reactive Protein Quant 0.6 mg/dL (<1.0); Calcium 10.2 mg/dL (8.4-10.2); Carbon Dioxide 31 mmol/L (22-32); Chloride 100 mmol/L (98-107); Estimated Glomerular Filt Rate 43.4 mL/min (>60); Globulin 3.2 g/dL (1.7-4.1); Glucose 108 mg/dL (80-110); HEMOLYSIS < 15 (0-50); Potassium 3.6 mmol/L (3.4-5.1); Sodium 139 mmol/L (137-145); Total Protein 7.3 g/dL (6.3-8.2)
== END ==
PROVIDERS: Internal Medicine Rheumatology; PCP Internal Medicine; Visit Provider Internal Medicine
DX: M05.9 Rheumatoid arthritis with rheumatoid factor, unspecified (principal); Z79.899 Other long term (current) drug therapy
CPT/HCPCS: 36415; 80053; 85025; 86140

== ENCOUNTER 2020-04-01 14:55 | Observation (INO) | payer MEDICARE, SELFPAY ==
[2020-04-01 14:58] VITALS: BP 185/83; PULSE 88; RESP 14; TEMP 37.1; O2SAT 96; BMI 26.6
[2020-04-01 15:00] VITALS: BP 185/83; PULSE 95; RESP 16; O2SAT 95
--- NOTE | 2020-04-01 15:17 | DI.CT.S_ITS ---
PROCEDURE: CT HEAD/BRAIN WO CON INDICATIONS: Left leg numbness with new headache TECHNIQUE: Noncontrast 4.5 mm thick angled axial sections acquired from the foramen magnum to the vertex, with coronal and sagittal reformats. For radiation dose reduction, the following was used: automated exposure control, adjustment of mA and/or kV according to patient size. COMPARISON: None. FINDINGS: Image quality: Excellent. CSF spaces: Basal cisterns are patent. No extra-axial fluid collections. The ventricles are symmetric in size and shape. Brain: No intracranial bleeds or masses. There is cerebral volume loss for age, with resultant ventricular and sulcal prominence. There are periventricular and deep white matter chronic small vessel ischemic changes. There is intracranial internal carotid artery atherosclerosis. Skull and face: Calvarium and visualized facial bones appear intact, without suspicious lesions. Sinuses: Visualized sinuses are clear. Complete opacification of the right mastoid air cells IMPRESSION: No acute intracranial process. Completely opacified right mastoid air cells, technically age-indeterminate Dictated by: Abel Barros M.D. on 04/01/2020 at 15:40 Approved by: Abel Barros M.D. on 04/01/2020 at 15:47
--- NOTE | 2020-04-01 15:44 | ED.EXTPRO ---
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 She states she experienced some left leg weakness last night. She was going to bed around 9:00 p.m. and she went to go to the bathroom when she had difficulty walking on her left foot because it was numb. She states she had to drag her left foot to go to the bathroom. She went to bed and then woke up in the middle the night to go to the bathroom, she states she tripped because her left foot was was numb and difficult to stand on. Patient denies any injury when she tripped, denies hitting head, states she caught herself her hands and denies any hand or elbow pain. Patient also noticed that she woke up this morning with a 8/10 frontal headache and continued left foot numbness. She states she was able to walk on her left foot but the numbness continued and her headache has been slowly resolving. She states the pain is currently a 2/10 at this time. She had an appointment with Dr. Adame who sent her to the emergency department for further evaluation. Patient denies any other symptoms such as slurred speech, difficulty swallowing, vision changes, chest pain, shortness of breath, abdominal pain, nausea, vomiting, diarrhea, upper limb weakness, trauma to the area, or any other concerns. She does report she has had multiple lumbar back surgeries and she believes she has had surgery on L4 and L5 years ago. Related Data Home Medications Medication Instructions Recorded Confirmed amlodipine 5 mg PO DAILY 01/14/19 01/14/19 atorvastatin 20 mg PO BEDTIME 01/14/19 01/14/19 chlorthalidone 25 mg PO DAILY 01/14/19 01/14/19 cholecalciferol (vitamin D3) 2,000 unit PO BID 01/14/19 01/14/19 [Vitamin D3] clonidine HCl 0.1 mg PO BID 01/14/19 01/14/19 cyclosporine [Restasis] 5.5 ml EYE-BOTH BID 01/14/19 01/14/19 denosumab [Prolia] 60 mg SUBCUT [id number] 01/14/19 01/14/19 diltiazem HCl 240 mg PO DAILY 01/14/19 01/14/19 etanercept [Enbrel] 50 mg SUBCUT QWEEK 01/14/19 01/14/19 fexofenadine [Sadie Allergy] 180 mg PO DAILY 01/14/19 01/14/19 gabapentin 300 mg PO TID 01/14/19 01/14/19 hydroxyzine HCl 25 mg PO QID PRN 01/14/19 01/14/19 loteprednol etabonate [Lotemax] 10 ml EYE-BOTH BID 01/14/19 01/14/19 multivitamin 1 cap PO QAM 01/14/19 01/14/19 omeprazole 20 mg PO DAILY 01/14/19 01/14/19 warfarin 2.5 mg PO DAILY 01/14/19 01/14/19 zolpidem 5 mg PO BEDTIME PRN 01/14/19 01/14/19 Allergies Allergy/AdvReac Type Severity Reaction Status Date / Time atracurium [ATRACURIUM] Allergy Unknown Verified 04/01/20 15:04 mivacurium [MIVACURIUM] Allergy Unknown Verified 04/01/20 15:04 succinylcholine Allergy Unknown Verified 04/01/20 15:04 [SUCCINYLCHOLINE] enalaprilat [From VASOTEC] AdvReac Mild cough Verified 04/01/20 15:04 Review of Systems <SHANA Floyd - Last Filed: 04/01/20 19:57> Review of Systems Narrative: REVIEW OF SYSTEMS: GENERAL: Denies fever or chills. HENT: No head trauma. Reports headache, see HPI. EYES: No loss of vision, double vision, eye pain, or irritation. CARDIOVASCULAR: No chest pain or syncope. RESPIRATORY: No shortness of breath or cough. GASTROINTESTINAL: No nausea, vomiting, diarrhea, or constipation. GENITOURINARY: No flank pain or dysuria. MUSCULOSKELETAL: Reports left leg weakness, see HPI. INTEGUMENTARY: No rash, lesions, or pruritus. NEURO: No numbness, tingling. Denies slurred speech, confusion, or memory loss. Patient History <SHANA Floyd - Last Filed: 04/01/20 19:57> Medical History History of hyperlipidemia (Acute) History of pulmonary embolism (Acute) Hypertension (Acute) Surgical History (Updated 04/01/20 @ 17:51 by Get Wilder DO) H/O: knee surgery (Acute) History of back surgery (Acute) History of shoulder surgery (Acute) No significant past surgical history (Acute) Family History (Updated 04/01/20 @ 17:52 by Get Wilder DO) Mother Hypertension TIA (transient ischemic attack) Social History household members: spouse Smoking Status: Never smoker Smoking Status: Never smoker alcohol intake frequency: holidays/special occasions only Substance Use Type: does not use Exam <SHANA Floyd - Last Filed: 04/01/20 19:57> Initial Vital Signs Initial Vital Signs: Vital Signs Temperature 98.8 F 04/01/20 14:58 Pulse Rate 88 04/01/20 14:58 Respiratory Rate 14 04/01/20 14:58 Blood Pressure 185/83 H 04/01/20 14:58 Pulse Oximetry 96 04/01/20 14:58 PHYSICAL EXAMINATION: GENERAL: Well groomed, alert, and cooperative. Answers questions promptly and appropriately. Vital signs noted. HENT: Normocephalic, atraumatic. EYES: Symmetrical, sclera white, no periorbital swelling. CARDIOVASCULAR: S1 and S2 sounds normal. Regular rate and rhythm, no murmurs, clicks, or bruits. No pedal edema. RESPIRATORY: Normal respiratory rate, trachea midline, airway patent. No stridor, nasal flaring or accessory muscle use. Lungs are clear in all weems. MUSCULOSKELETAL: Bilateral feet and lower legs warm to touch. Equal lower extremity strength, equal plantar and dorsiflexion strength to bilateral feet. Patient able to move toes, ankle, and lower extremity. Patient able to bend knee. No pain with palpation of knee, marshall, foot, ankle, or toes. Pedal pulses right 2+, left 1+. Pulses bilaterally are found with Doppler which sounds slightly decreased on the left that is clearly present. Equal upper limb strength. No tenderness to hips or spine. Patient walking with slight limp favoring the left foot. EXTREMITIES: CMS intact. SKIN: Warm, dry, soft, appropriate color for ethnicity. No lesions, rashes, or wounds. NEURO: Alert and Oriented X 3. No sensory deficits. PSYCH: Appropriate affect and mood. <Inder Fuentes DO - Last Filed: 04/02/20 07:09> Initial Vital Signs Initial Vital Signs: Vital Signs Temperature 98.8 F 04/01/20 14:58 Pulse Rate 88 04/01/20 14:58 Respiratory Rate 14 04/01/20 14:58 Blood Pressure 185/83 H 04/01/20 14:58 Pulse Oximetry 96 04/01/20 14:58 Scores <SHANA Floyd - Last Filed: 04/01/20 19:57> NIH Stroke Scale Level of Conciousness: Alert, keenly responsive Ask month/age: Answers both questions correctly. Open/close eyes, close hand: Performs both tasks correctly Best gaze horizontal: Normal Visual weems: No visual loss Facial palsy: Normal symetrical movement Left arm drift: No drift for full 10 sec Right arm drift: No drift for full 10 sec Left leg drift: No drift for full 10 sec Right leg drift: No drift for full 10 sec Limb ataxia: Absent Sensory on face/arms/legs: Normal, no sensory loss Best language: No aphasia, normal Dysarthria: Normal Extinction or inattention: No abnormality Total NIH Stroke scale score: 0 Wells' Criteria for DVT Active Cancer (Treatment within 6 months): No Bedridden recently >3 days or major surgery within 4 weeks: No Calf Swelling >3cm compared to other leg: No Collateral (nonvericose) superficial veins present: No Entire leg swollen: No Localized tenderness along the deep vein system: No Pitting edema, confined to symtomatic leg: No Paralysis, paresis, or recent plaster immobilization of ext: No Previously documented DVT: Yes Alternative dx to DVT as likely or more likely: Yes Wells' criteria for DVT: -1 Course <SHANA Floyd - Last Filed: 04/01/20 19:57> Course Course Narrative: [id number]: Spoke with Dr. Logan about patient. Discussed symptoms, test, test results. He accepts for observation. Orders Ordered: Acetaminophen (Tylenol) 650 mg PO Q6HR PRN PRN Reason: Fever/Mild Pain (1-3) Al Hydrox/Mg Hydrox/Simethicone (Maalox Plus) 30 ml PO Q6HR PRN PRN Reason: Dyspepsia Apixaban (Eliquis) 5 mg PO BID [facility] Last Admin: 04/01/20 20:36 Dose: 5 mg Documented by: ANTONELLA Gabapentin (Neurontin) 300 mg PO TID [facility] Last Admin: 04/01/20 20:36 Dose: 300 mg Documented by: ANTONELLA Labetalol HCl (Trandate) 10 mg IV Q4HR PRN PRN Reason: Hypertension Ondansetron HCl (Zofran) 4 mg IV Q8HR PRN PRN Reason: Nausea And Vomiting Sodium Chloride (Normal Saline 0.9% Flush) 10 ml IV PRN PRN PRN Reason: Flush Sodium Chloride (Normal Saline 0.9% Flush) 10 ml IV BID [facility] Discontinued Medications Aspirin (Aspirin Ec) 81 mg PO DAILY [facility] Aspirin (Aspirin Chew) 324 mg PO NOW ONE Stop: 04/01/20 17:36 Last Admin: 04/01/20 18:08 Dose: 324 mg Documented by: RICHARD Enoxaparin Sodium (Lovenox) 40 mg SUBCUT DAILY [facility] Sodium Chloride (Normal Saline 0.9%) 1,000 mls @ 150 mls/hr IV CONT [facility] Stop: 04/01/20 17:29 Last Infusion: 04/01/20 17:10 Dose: 150 mls/hr Documented by: Admin: 04/01/20 16:29 Dose: 150 mls/hr Documented by: NASH Reevaluation(s) Reevaluation #1: Patient staffed with Dr. Fuentes discussed test, test results, and plan of care. Vital Signs Vital signs: Vital Signs - 8 hr 04/01/20 14:58 04/01/20 15:00 Temperature 98.8 F Pulse Rate 88 95 H Respiratory Rate 14 16 Blood Pressure 185/83 H Blood Pressure [Right Arm] 185/83 H Pulse Oximetry 96 95 <Inder Fuentes DO - Last Filed: 04/02/20 07:09> Orders Ordered: Acetaminophen (Tylenol) 650 mg PO Q6HR PRN PRN Reason: Fever/Mild Pain (1-3) Al Hydrox/Mg Hydrox/Simethicone (Maalox Plus) 30 ml PO Q6HR PRN PRN Reason: Dyspepsia Apixaban (Eliquis) 5 mg PO BID [facility] Last Admin: 04/01/20 20:36 Dose: 5 mg Documented by: ANTONELLA Gabapentin (Neurontin) 300 mg PO TID [facility] Last Admin: 04/01/20 20:36 Dose: 300 mg Documented by: ANTONELLA Labetalol HCl (Trandate) 10 mg IV Q4HR PRN PRN Reason: Hypertension Ondansetron HCl (Zofran) 4 mg IV Q8HR PRN PRN Reason: Nausea And Vomiting Sodium Chloride (Normal Saline 0.9% Flush) 10 ml IV PRN PRN PRN Reason: Flush Sodium Chloride (Normal Saline 0.9% Flush) 10 ml IV BID [facility] Discontinued Medications Aspirin (Aspirin Ec) 81 mg PO DAILY [facility] Aspirin (Aspirin Chew) 324 mg PO NOW ONE Stop: 04/01/20 17:36 Last Admin: 04/01/20 18:08 Dose: 324 mg Documented by: RICHARD Enoxaparin Sodium (Lovenox) 40 mg SUBCUT DAILY [facility] Sodium Chloride (Normal Saline 0.9%) 1,000 mls @ 150 mls/hr IV CONT [facility] Stop: 04/01/20 17:29 Last Infusion: 04/01/20 17:10 Dose: 150 mls/hr Documented by: Admin: 04/01/20 16:29 Dose: 150 mls/hr Documented by: NASH Vital Signs Vital signs: Vital Signs - 8 hr 04/01/20 14:58 04/01/20 15:00 Temperature 98.8 F Pulse Rate 88 95 H Respiratory Rate 14 16 Blood Pressure 185/83 H Blood Pressure [Right Arm] 185/83 H Pulse Oximetry 96 95 MDM - Extremity (Nontraumatic) <SHANA Floyd - Last Filed: 04/01/20 19:57> Medical Records Attestation: I reviewed the patient's medical records. Lab Data Attestation: I reviewed the patient's lab results. Result diagrams: 04/02/20 06:37 04/01/20 15:39 Labs: Lab Results 04/01/20 04/01/20 04/01/20 Range/Units 15:39 15:39 15:39 WBC 11.8 H (4.5-11.0) X10^3/uL RBC 3.63 L (4.0-5.2) X10^6/uL Hgb 11.3 L (12.0-16.0) g/dL Hct 33.0 L (36-46) % MCV 90.7 (80-100) fL MCH 31.2 (26-34) PG MCHC 34.4 (30-36) % RDW 13.6 (11.6-14.8) % Plt Count 298 (150-400) X10^3/uL Neut % (Auto) 63.4 (50-75) % Lymph % (Auto) 24.5 L (25-40) % [place] % (Auto) 8.3 (3-14) % Eos % (Auto) 3.1 (2-4) % Baso % (Auto) 0.7 (0-2) % Neut # (Auto) 7500 H (2352-0502) /uL Lymph # (Auto) 2900 (1682-9744) /uL [place] # (Auto) 1000 H (0-900) /uL Eos # (Auto) 400 (0-450) /uL Baso # (Auto) 100 (0-100) /uL PT 15.2 H (10.1-12.7) SECONDS INR 1.3 (0.9-1.3) APTT 36 D (26.4-36.2) SECONDS Sodium 135 L (137-145) mmol/L Potassium 4.0 (3.4-5.1) mmol/L Chloride 95 L (98-107) mmol/L Carbon Dioxide 31 (22-32) mmol/L BUN 21 H (7-17) mg/dL Creatinine 0.92 (0.52-1.04) mg/dL Estimated GFR 58.9 L (>60) mL/min BUN/Creatinine Ratio 22.8 H (6-22) Glucose 104 (80-110) mg/dL Calcium 10.1 (8.4-10.2) mg/dL Total Bilirubin 0.6 (0.2-1.3) mg/dL AST 29 (14-36) IU/L ALT 8 (<35) IU/L Alkaline Phosphatase 67 (38-126) U/L Total Protein 7.8 (6.3-8.2) g/dL Albumin 4.2 (3.5-5.0) g/dL Globulin 3.6 (1.7-4.1) g/dL Albumin/Globulin Ratio 1.2 (1.0-2.8) Imaging Data CT scan - head: Radiologist's Impression: [address] [address] [address] Scan Report Signed Patient: Shiela Brady [facility]#: [id number] : 1Acct:[id number] Age/Sex: 80 / FDate of Service: 04/01/20 Loc: ED Accession Number: [id number] Procedure: CT head/brain wo con Ordering Provider: Suzette Dalton PROCEDURE: CT HEAD/BRAIN WO CON INDICATIONS: Left leg numbness with new headache TECHNIQUE: Noncontrast 4.5 mm thick angled axial sections acquired from the foramen magnum to the vertex, with coronal and sagittal reformats. For radiation dose reduction, the following was used: automated exposure control, adjustment of mA and/or kV according to patient size. COMPARISON: None. FINDINGS: Image quality: Excellent. CSF spaces: Basal cisterns are patent. No extra-axial fluid collections. The ventricles are symmetric in size and shape. Brain: No intracranial bleeds or masses. There is cerebral volume loss for age, with resultant ventricular and sulcal prominence. There are periventricular and deep white matter chronic small vessel ischemic changes. There is intracranial internal carotid artery atherosclerosis. Skull and face: Calvarium and visualized facial bones appear intact, without suspicious lesions. Sinuses: Visualized sinuses are clear. Complete opacification of the right mastoid air cells IMPRESSION: No acute intracranial process. Completely opacified right mastoid air cells, technically age-indeterminate Dictated by: Abel Barros M.D. on 04/01/2020 at 15:40 Approved by: Abel Barros M.D. on 04/01/2020 at 15:47 ECG Data Interpretation: Normal sinus rhythm, rate 64, NH interval 222, QTC 356. No ST elevation or ST depression. No T-wave inversion. No ectopy. Possible first-degree AV block. No acute changes. EKG viewed by Dr. Fuentes. [facility] Narrative Medical decision making narrative: 80-year-old female presenting to the emergency department for reports of left leg weakness and numbness starting last night. History of DVT and PEs. I am unsure the exact cause of patient's symptoms. Differential includes TIA due to reports of focal weakness that has been resolving, continued complains of numbness, associated headache, and frequent history of past clots (DVT and PE). Further studies such as MRI is needed to further rule out this disease process. Patient was admitted for this reason. Less likely cranial hemorrhage or brain tumor in due to negative head CT and resolving symptoms. It is possible her symptoms may also be caused by a lumbar spine issue such as DDD, herniated disc, and/or compressed nerve. Patient has had multiple lumbar surgeries. However, decreased suspicion of this due to slightly resolving symptoms and associated headache. Less likely DVT due to lack of calf tenderness and swelling present. Presentation of other symptoms such as numbness which is not usually caused by DVT. Patient is currently on anticoagulation therapy. Purpose for admission was explained to patient, she agreed to plan of care. Patient was admitted to Dr. Wilder. <Inder Fuentes DO - Last Filed: 04/02/20 07:09> Lab Data Labs: Lab Results 04/01/20 04/01/20 04/01/20 Range/Units 15:39 15:39 15:39 WBC 11.8 H (4.5-11.0) X10^3/uL RBC 3.63 L (4.0-5.2) X10^6/uL Hgb 11.3 L (12.0-16.0) g/dL Hct 33.0 L (36-46) % MCV 90.7 (80-100) fL MCH 31.2 (26-34) PG MCHC 34.4 (30-36) % RDW 13.6 (11.6-14.8) % Plt Count 298 (150-400) X10^3/uL Neut % (Auto) 63.4 (50-75) % Lymph % (Auto) 24.5 L (25-40) % [place] % (Auto) 8.3 (3-14) % Eos % (Auto) 3.1 (2-4) % Baso % (Auto) 0.7 (0-2) % Neut # (Auto) 7500 H (3759-3133) /uL Lymph # (Auto) 2900 (8193-3687) /uL [place] # (Auto) 1000 H (0-900) /uL Eos # (Auto) 400 (0-450) /uL Baso # (Auto) 100 (0-100) /uL PT 15.2 H (10.1-12.7) SECONDS INR 1.3 (0.9-1.3) APTT 36 D (26.4-36.2) SECONDS Sodium 135 L (137-145) mmol/L Potassium 4.0 (3.4-5.1) mmol/L Chloride 95 L (98-107) mmol/L Carbon Dioxide 31 (22-32) mmol/L BUN 21 H (7-17) mg/dL Creatinine 0.92 (0.52-1.04) mg/dL Estimated GFR 58.9 L (>60) mL/min BUN/Creatinine Ratio 22.8 H (6-22) Glucose 104 (80-110) mg/dL Calcium 10.1 (8.4-10.2) mg/dL Total Bilirubin 0.6 (0.2-1.3) mg/dL AST 29 (14-36) IU/L ALT 8 (<35) IU/L Alkaline Phosphatase 67 (38-126) U/L Total Protein 7.8 (6.3-8.2) g/dL Albumin 4.2 (3.5-5.0) g/dL Globulin 3.6 (1.7-4.1) g/dL Albumin/Globulin Ratio 1.2 (1.0-2.8) Discharge Plan Departure Patient Disposition: Admitted as Observation Clinical Impression: Weakness of left foot, Numbness of left foot Discharge Date/Time: 04/01/20 16:51 Admit Date/Time: 04/01/20 16:26 Admit Provider: Get Wilder <Inder Fuentes, DO - Last Filed: 04/02/20 07:09> Cosign ED Attending [facility] Attestation: Dr Fuentes Co-Sign Statement: I was available for consultation during this patient's emergency department visit. This chart is signed by myself for administrative purposes only. I did not have direct contact with this patient during this visit. They were seen independently by the APC.
[2020-04-01 15:46] LABS: Add Manual Diff / Slide Review NO; Basophils Absolute Auto 100 /uL (0-100); Basophils Percent Auto 0.7 % (0-2); Eosinophils Absolute Auto 400 /uL (0-450); Eosinophils Percent Auto 3.1 % (2-4); Hemoglobin 11.3 g/dL (12.0-16.0); Lymphocytes Absolute Auto 2900 /uL (1100-4500); Lymphocytes Percent Auto 24.5 % (25-40); Mean Corpuscular HGB Conc 34.4 % (30-36); Mean Corpuscular Hemoglobin 31.2 PG (26-34); Mean Corpuscular Volume 90.7 fL (80-100); Monocytes Absolute Auto 1000 /uL (0-900); Monocytes Percent Auto 8.3 % (3-14); Neutrophils Absolute Auto 7500 /uL (1500-7000); Neutrophils Percent Auto 63.4 % (50-75); Platelet Count 298 X10^3/uL (150-400); Red Blood Cell Count 3.63 X10^6/uL (4.0-5.2); Red Cell Distribution Width 13.6 % (11.6-14.8); White Blood Cell Count 11.8 X10^3/uL (4.5-11.0)
[2020-04-01 15:54] LABS: INR 1.3 (0.9-1.3); Prothrombin Time 15.2 SECONDS (10.1-12.7)
[2020-04-01 15:56] LABS: PTT Partial Thromboplastin Tim 36 SECONDS (26.4-36.2)
[2020-04-01 15:59] LABS: Alanine Aminotransferase 8 IU/L (<35); Albumin 4.2 g/dL (3.5-5.0); Albumin Globulin Ratio 1.2 (1.0-2.8); Alkaline Phosphatase 67 U/L (38-126); Aspartate Aminotransferase 29 IU/L (14-36); BUN Creatinine Ratio 22.8 (6-22); Bilirubin Total 0.6 mg/dL (0.2-1.3); Blood Urea Nitrogen 21 mg/dL (7-17); Calcium 10.1 mg/dL (8.4-10.2); Carbon Dioxide 31 mmol/L (22-32); Chloride 95 mmol/L (98-107); Estimated Glomerular Filt Rate 58.9 mL/min (>60); Globulin 3.6 g/dL (1.7-4.1); Glucose 104 mg/dL (80-110); HEMOLYSIS < 15 (0-50); Sodium 135 mmol/L (137-145); Total Protein 7.8 g/dL (6.3-8.2)
[2020-04-01] MEDS: SODIUM CHLORIDE 0.9% 1,000 ML 150 ML IV (16:29)
[2020-04-01 16:50] VITALS: BP 185/83; PULSE 60; RESP 16; O2SAT 97
[2020-04-01 17:21] LABS: UR Morphine/Opiate cutoff 300 Negative (Negative); Ur Creatinine Normal (Normal); Ur Specific Gravity Normal (Normal); Urine Amphetamines Negative (Negative); Urine Barbiturates Negative (Negative); Urine Benzodiazepines Negative (Negative); Urine Cocaine Negative (Negative); Urine MDMA Negative (Negative); Urine Methadone Negative (Negative); Urine Methamphetamines Negative (Negative); Urine Oxycodone Negative (Negative); Urine Phencyclidine Negative (Negative); Urine Tetrahydrocannabinol Negative (Negative); Urine Tricyclic Antidepressant Negative (Negative); Urine pH Normal (Normal)
--- NOTE | 2020-04-01 17:32 | P.HP_ITS ---
History of Present Illness History of Present Illness Date Patient Seen: 04/01/20 Time Patient Seen: 17:42 Date of Onset of Symptoms: 03/31/20 Chief complaint: NUMBNESS IN LEFT LEG Narrative: Shiela Brady is a 80-year-old female with past medical history of hypertension, osteopenia, rheumatoid arthritis on Enbrel, multiple back surgeries, and remote history of PE 10 years ago still on anticoagulation who presented to the emergency room with left lower extremity numbness. Patient states that yesterday evening at around 9:15 p.m. she was in the bathroom and noticed that her left leg was heavy and she was unable to move it below her knee as well as left lower extremity numbness. She experienced a fall as result of the leg weakness but she was able to drag herself into bed. She awoke at 1:00 a.m. in the morning with continued symptoms of weakness and numbness. This morning she still had residual numbness in decided to contact her primary care provider over the phone who directed her to the emergency room for further evaluation. She still reports continued numbness more so on the lateral aspect of her left leg, but her weakness has subsequently improved. She recalls a headache overnight, which is improved this morning. She denies any recent symptoms of palpitations, shortness of breath, dyspnea on exertion, chest pain. Her was at home and did not mention any difficulty with speech or word- finding. She does endorse some left lower extremity swelling and heaviness over the past 1-2 weeks. 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 She was switched to Eliquis about 2 months ago from warfarin. In the emergency room, her vital signs were unremarkable. Initial laboratory evaluation showed a mild leukocytosis at 11.8, hemoglobin of 11.3, platelet of 298. INR was 1.3. Chemistries were unremarkable. Urine drug screen was negative. CT of her head did not show any hemorrhage. EKG showed normal sinus rhythm with a first-degree AV block, no evidence of ischemia and no concerning ST or T-wave changes. Patient History Medical History History of hyperlipidemia (Acute) History of pulmonary embolism (Acute) Hypertension (Acute) Surgical History (Updated 05/19/20 @ 17:51 by Get Wilder DO) H/O: knee surgery (Acute) History of back surgery (Acute) History of shoulder surgery (Acute) No significant past surgical history (Acute) Family & Social History Family History (Updated 04/01/20 @ 17:52 by Get Wilder DO) Mother Hypertension TIA (transient ischemic attack) Safety & Behavioral: Feels Safe in Current Yes Environment Been Physically Hurt or No Threatened By a Person Tobacco & Substance use: Smoking Status Never smoker alcohol intake frequency holiday/special occasion Substance Use Type does not use Meds Home Medications and Allergies Home Medications Medication Instructions Recorded Confirmed Type amlodipine 5 mg PO DAILY 01/14/19 01/14/19 History atorvastatin 20 mg PO BEDTIME 01/14/19 01/14/19 History chlorthalidone 25 mg PO DAILY 01/14/19 01/14/19 History cholecalciferol (vitamin D3) 2,000 unit PO BID 01/14/19 01/14/19 History [Vitamin D3] clonidine HCl 0.1 mg PO BID 01/14/19 01/14/19 History cyclosporine [Restasis] 5.5 ml EYE-BOTH BID 01/14/19 01/14/19 History denosumab [Prolia] 60 mg SUBCUT [id number] 01/14/19 01/14/19 History diltiazem HCl 240 mg PO DAILY 01/14/19 01/14/19 History etanercept [Enbrel] 50 mg SUBCUT QWEEK 01/14/19 01/14/19 History fexofenadine [Sadie Allergy] 180 mg PO DAILY 01/14/19 01/14/19 History gabapentin 300 mg PO TID 01/14/19 01/14/19 History hydroxyzine HCl 25 mg PO QID PRN 01/14/19 01/14/19 History loteprednol etabonate [Lotemax] 10 ml EYE-BOTH BID 01/14/19 01/14/19 History multivitamin 1 cap PO QAM 01/14/19 01/14/19 History omeprazole 20 mg PO DAILY 01/14/19 01/14/19 History warfarin 2.5 mg PO DAILY 01/14/19 01/14/19 History zolpidem 5 mg PO BEDTIME PRN 01/14/19 01/14/19 History Allergies Allergy/AdvReac Type Severity Reaction Status Date / Time atracurium [ATRACURIUM] Allergy Unknown Verified 04/01/20 15:04 mivacurium [MIVACURIUM] Allergy Unknown Verified 04/01/20 15:04 succinylcholine Allergy Unknown Verified 04/01/20 15:04 [SUCCINYLCHOLINE] enalaprilat [From VASOTEC] AdvReac Mild cough Verified 04/01/20 15:04 Review of Systems Review of Systems Narrative: All other systems reviewed with the patient and are negative unless otherwise stated. Exam Vital Signs (past 8 hours): - 04/01/20 14:58 04/01/20 15:00 04/01/20 16:50 Temperature 98.8 F Pulse Rate 88 95 H 60 Respiratory Rate 14 16 16 Blood Pressure 185/83 H 185/83 H Blood Pressure [Right Arm] 185/83 H Pulse Oximetry 96 95 97 Oxygen Delivery Method Room Air Narrative Exam Narrative: GENERAL APPEARANCE: Well developed, well nourished, in no acute distress. SKIN: Inspection of the skin reveals no rashes, ulcerations or petechiae. HEENT: Normocephalic atraumatic, extraocular muscles are intact, oropharynx is clear and mucous membranes are moist, neck is supple without adenopathy NECK: Supple and symmetric. There was no thyroid enlargement, and no tenderness, or masses were felt. CHEST: Normal AP diameter and normal contour without any kyphoscoliosis. LUNGS: Auscultation of the lungs revealed no wheezes, rhonchi, or rales. CARDIOVASCULAR: There was a regular rate and rhythm without any murmurs, gallops, rubs. Peripheral pulses were 2+ and symmetric. ABDOMEN: Soft and nontender with normal bowel sounds. No ascites was noted. MUSCULOSKELETAL: There was no tenderness or effusions noted. Muscle strength and tone were normal. EXTREMITIES: No cyanosis, clubbing or edema. NEUROLOGIC: Alert and oriented x 3. Normal affect. Gait was normal. Finger to nose unremarkable. Heel to marshall unremarkable. Cranial nerves 2-12 grossly intact bilaterally. Strength is +5/5 in the Upper Extremities and Lower Extr emities Bilaterally. Sensation to touch was diminished in the lateral aspect of her left lower extremity below the knee, more prominent with sharp discrimination. Objective Labs Result Diagrams: 04/01/20 15:39 04/01/20 15:39 Labs: Laboratory Results - last 24 hr 04/01/20 04/01/20 04/01/20 15:39 15:39 15:39 WBC 11.8 H RBC 3.63 L Hgb 11.3 L Hct 33.0 L MCV 90.7 MCH 31.2 MCHC 34.4 RDW 13.6 Plt Count 298 Neut % (Auto) 63.4 Lymph % (Auto) 24.5 L Mcdonald % (Auto) 8.3 Eos % (Auto) 3.1 Baso % (Auto) 0.7 Neut # (Auto) 7500 H Lymph # (Auto) 2900 Mcdonald # (Auto) 1000 H Eos # (Auto) 400 Baso # (Auto) 100 PT 15.2 H INR 1.3 APTT 36 D Sodium 135 L Potassium 4.0 Chloride 95 L Carbon Dioxide 31 BUN 21 H Creatinine 0.92 Estimated GFR 58.9 L BUN/Creatinine Ratio 22.8 H Glucose 104 Calcium 10.1 Total Bilirubin 0.6 AST 29 ALT 8 Alkaline Phosphatase 67 Total Protein 7.8 Albumin 4.2 Globulin 3.6 Albumin/Globulin Ratio 1.2 U Opiates 300ng/mL cut Ur Oxycodone Screen Urine Methadone Screen Ur Barbiturates Screen U Tricyclic Antidepress Ur Phencyclidine Scrn Ur Amphetamines Screen U Methamphetamines Scrn Ur MDMA Scrn (Ecstasy) U Benzodiazepines Scrn Urine Cocaine Screen U Marijuana (THC) Screen 04/01/20 17:05 WBC RBC Hgb Hct MCV MCH MCHC RDW Plt Count Neut % (Auto) Lymph % (Auto) Mcdonald % (Auto) Eos % (Auto) Baso % (Auto) Neut # (Auto) Lymph # (Auto) Mcdonald # (Auto) Eos # (Auto) Baso # (Auto) PT INR APTT Sodium Potassium Chloride Carbon Dioxide BUN Creatinine Estimated GFR BUN/Creatinine Ratio Glucose Calcium Total Bilirubin AST ALT Alkaline Phosphatase Total Protein Albumin Globulin Albumin/Globulin Ratio U Opiates 300ng/mL cut Negative Ur Oxycodone Screen Negative Urine Methadone Screen Negative Ur Barbiturates Screen Negative U Tricyclic Antidepress Negative Ur Phencyclidine Scrn Negative Ur Amphetamines Screen Negative U Methamphetamines Scrn Negative Ur MDMA Scrn (Ecstasy) Negative U Benzodiazepines Scrn Negative Urine Cocaine Screen Negative U Marijuana (THC) Screen Negative Assessment & Plan Assessment & Plan narrative: Shiela Brady is a 80-year-old female with past medical history of hypertension, osteopenia, rheumatoid arthritis on Enbrel, multiple back surgeries, and remote history of PE 10 years ago still on anticoagulation who presented to the emergency room with left lower extremity numbness as well as resolved symptoms of left lower extremity weakness. She is admitted under observation status for evaluation for possible TIA. 1. Left lower extremity numbness, acute, present on admission -patient presented with symptoms starting 9:00 p.m. the previous day with lower extremity weakness which has since resolved and continued lower extremity numbness. -will perform bilateral lower extremity Doppler to evaluate for possible DVT which could be the cause of her symptoms -given history of multiple back surgeries as well as localized numbness on exam consider further evaluation with spinal imaging if symptoms persist, if improvement this is most likely consistent with a TIA or CVA depending on length of symptoms -will obtain echocardiogram and MR stroke protocol -admission head CT was negative for hemorrhage -continue telemetry to evaluate for possibility of atrial fibrillation, however patient is on AC -will risk stratify with A1c, TSH, lipid panel. -given ABCD2 score of 5, NIH stroke scale of 1 currently patient would benefit from DA PT for 21 days, however she is currently on anticoagulation and given this there is no clear benefit. Patient was given aspirin 324 mg x 1 dose. Will need further discussion pending above workup. 2. Hypertension, essential, present on admission -will need to confirm home medications with pharmacy or PCP office as patient is not quite clear on her current medications -given continued symptoms, will allow for permissive hypertension overnight with as needed labetalol. 3. History of DVT and PE. Present on admission, on anticoagulation -will repeat ultrasound of bilateral lower extremities given history and presen ting symptoms -continue home apixaban 5 mg b.i.d. 4. Rheumatoid arthritis, chronic -patient takes a Enbrel weekly, can continue -patient has known osteopenia, and takes denosumab every 6 months -continue home gabapentin Code: Full, states and [id number] is her surrogate decision maker Dispo: Admitted under observation status as her stay is not likely to exceed 2 midnights. DVT: On apixaban Scores ABCD2 Age >= 60 years: yes Initial BP. Either SBP >= 140 or DBP >= 90.: no Clinical features of the TIA: unilateral weakness Duration of symptoms: >= 60 minutes History of diabetes: no ABCD2 Score: 5 NIHSS Level of Conciousness: Alert, keenly responsive Ask month/age: Answers both questions correctly. Open/close eyes, close hand: Performs both tasks correctly Best gaze horizontal: Normal Visual weems: No visual loss Facial palsy: Normal symetrical movement Left arm drift: No drift for full 10 sec Right arm drift: No drift for full 10 sec Left leg drift: No drift for full 5 sec Right leg drift: No drift for full 5 sec Limb ataxia: Absent Sensory on face/arms/legs: Mild to moderate sensory loss, can tell touch Best language: No aphasia, normal Dysarthria: Normal Extinction or inattention: No abnormality Total NIH Stroke scale score: 1
--- NOTE | 2020-04-01 17:32 | DI.ECHO.S_ITS ---
[facility]---------+ [facility] +---------+ : : [address] : : : : [id number] : : : : Phone: [phone] Echocardiogram Report + + :Name: NILES CURIEL Study Date: 04/02/2020 Height: 61 in : :[facility] Weight: 141 lb : : Gender: Female BSA: 1.6 m2 : :: 1940 Age: 80 yrs BP: 185/83 mmHg: :Reason For Study: R/O PFO, TIA : :Ordering Physician: Jairon : :Hospitalist Performed By: Vee Baptiste : :Referring: JOHN ECHOLS : + + Interpretation Summary The ejection fraction is estimated to be 60-65%. The left atrium is mildly dilated. Injection of contrast documented no interatrial shunt. There is moderate aortic valve sclerosis. Procedure: A two-dimensional transthoracic echocardiogram with color flow and Doppler was performed. The study quality was technically adequate. Comparison is made with the echocardiogram of 11/23/2013. The injection was performed through an intravenous line in the left arm. A saline contrast injection was performed to assess for cardiac shunting. The patient was in normal sinus rhythm during the exam. The heart rate ranged between 56-64 bpm during the study. Left Ventricle: The left ventricle is normal in size and wall thickness. The ejection fraction is estimated to be 60-65%. Left ventricular wall motion is normal. Right Ventricle: The right ventricle is normal in size and function. Atria: The left atrium is mildly dilated. The right atrium is normal in size. Injection of contrast documented no interatrial shunt. The interatrial septum appears thin and hypermobile. Mitral Valve: There is mild to moderate mitral annular calcification. The mitral valve leaflets appear mildly thickened, but open well. There is no mitral regurgitation noted. Aortic Valve: The aortic valve is trileaflet. There is a fixed non-coronary cusp with reduced leaflet motion. The aortic valve is mildly calcified. There is moderate aortic valve sclerosis. There is no hemodynamically significant valvular aortic stenosis. No aortic regurgitation is present. Tricuspid Valve: The tricuspid valve is normal in structure and function. There is a trace or physiologic amount of tricuspid regurgitation. Pulmonic Valve: The pulmonic valve is normal in structure and function. There is mild pulmonic regurgitation. Great Vessels: The aortic root is normal size. The ascending aorta is normal in size. The IVC is of normal diameter and collapses greater than 50% with a sniff. This suggests a low right atrial pressure of 3 mm Hg. Pericardium/ Pleura There is no pericardial effusion. There is no pleural effusion. MMode/2D Measurements & Calculations LVIDd: 4.1 cm LVOT diam: 2.1 cm LVIDs: 2.6 cm Ao root diam: 2.9 cm FS: 36.8 % asc Aorta Diam: 3.0 cm EPSS: 1.0 cm IVSd: 0.94 cm LVPWd: 0.95 cm LV rainey. diameter/BSA (cm/m^2): 2.5 LV sys. diameter/BSA (cm/m^2): 1.6 LA A2 area: 18.3 cm2 RA long axis: 4.9 cm LA A4 area: 20.0 cm2 RA area: 16.7 cm2 LA length (vol): 5.4 cm RA vol: 47.9 ml LA vol: 57.9 ml RA : 29.4 ml/m2 LA vol index: 35.5 ml/m2 IVC diam: 0.97 cm RVD1 (basal): 2.7 cm TAPSE: 2.4 cm Doppler Measurements & Calculations Ao V2 max: 172.7 cm/sec LVOT Max Juan: 89.9 cm/sec Ao V2 mean: 123.9 cm/sec LV V1 max P.2 mmHg Ao max P.9 mmHg LV V1 VTI: 20.5 cm Ao mean P.9 mmHg CYNTHIA(I,D): 1.7 cm2 Ao V2 VTI: 40.6 cm CYNTHIA(V,D): 1.7 cm2 sev ratio: 0.50 CYNTHIA indexed to BSA (cm^2/m^2): 1.0 MV E max juan: 50.8 cm/sec PA V2 max: 71.1 cm/sec MV A max juan: 85.8 cm/sec PA V2 mean: 46.3 cm/sec MV E/A: 0.59 PA mean P.0 mmHg Lat Peak E' Juan: 5.8 cm/sec E/E' lat: 8.8 MV dec time: 0.27 sec SV(LVOT): 68.1 ml Reading Physician:01:50 PM
[2020-04-01 17:33] VITALS: BP 132/64; PULSE 62; RESP 18; TEMP 36.8; O2SAT 95
[2020-04-01 17:50] VITALS: BMI 26.9
[2020-04-01] MEDS: ASPIRIN 81 MG CHEW TAB 324 MG PO (18:08)
[2020-04-01] MEDS: APIXABAN 5 MG TABLET PO (20:36)
[2020-04-01] MEDS: GABAPENTIN 300 MG CAPSULE PO (20:36)
--- NOTE | 2020-04-02 00:08 | PC.NURSE ---
Addendum entered by Brandie Simpson R.N. 04/02/20 06:33: States she had cramp in left leg earlier tonight which caused increase discomfort when walking on left leg. Currently in bed and denies pain but states the numbness in leg is still present but not as bad. Still with some decreased sensation to left arm. Addendum entered by Brandie Simpson R.N. 04/02/20 00:17: Noted pedal pulse on left foot is weaker than on right Original Note: Patient is alert and oriented. NIH 1 for residual numbness/weakness in left ankle and top of left foot. Also has diminished sensation in left arm when compared to right arm. Breath sounds CTA with RA sat of 93%. HRR but bradycardic with rate of 55. 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 Denies nausea. BT present and abdomen is soft. Chronic urinary frequency/urgency related to diuretic use but denies incontinence. Is able to turn self in bed and is up to bathroom with SBA. Reports falling last night due to numbness/weakness in left leg. Fall risk score is high and bed alarm is activated. Denies pain. Wearing bilateral calf SCD's.
[2020-04-02 00:18] VITALS: BP 133/63; PULSE 55; RESP 18; TEMP 36.6; O2SAT 93
[2020-04-02 05:00] VITALS: BP 140/75; PULSE 66; RESP 18; TEMP 36.5; O2SAT 96
[2020-04-02 06:56] LABS: Add Manual Diff / Slide Review NO; Basophils Absolute Auto 100 /uL (0-100); Basophils Percent Auto 0.9 % (0-2); Eosinophils Absolute Auto 700 /uL (0-450); Hematocrit 33.9 % (36-46); Hemoglobin 11.6 g/dL (12.0-16.0); Lymphocytes Absolute Auto 2800 /uL (1100-4500); Lymphocytes Percent Auto 29.5 % (25-40); Mean Corpuscular HGB Conc 34.1 % (30-36); Mean Corpuscular Hemoglobin 30.9 PG (26-34); Mean Corpuscular Volume 90.6 fL (80-100); Monocytes Absolute Auto 1000 /uL (0-900); Monocytes Percent Auto 10.6 % (3-14); Neutrophils Absolute Auto 5000 /uL (1500-7000); Platelet Count 292 X10^3/uL (150-400); Red Blood Cell Count 3.74 X10^6/uL (4.0-5.2); Red Cell Distribution Width 13.4 % (11.6-14.8); White Blood Cell Count 9.6 X10^3/uL (4.5-11.0)
[2020-04-02 07:00] VITALS: BP 156/75; PULSE 57; RESP 15; TEMP 36.8; O2SAT 95
[2020-04-02 07:08] LABS: BUN Creatinine Ratio 23.2 (6-22); Blood Urea Nitrogen 19 mg/dL (7-17); Calcium 10.1 mg/dL (8.4-10.2); Carbon Dioxide 30 mmol/L (22-32); Chloride 98 mmol/L (98-107); Cholesterol 105 mg/dL (140-199); Estimated Glomerular Filt Rate > 60.0 mL/min (>60); Glucose 100 mg/dL (80-110); HDL Cholesterol 36 mg/dL (40-60); HEMOLYSIS < 15 (0-50); LDL Cholesterol Calculated 47 mg/dL (<100); Magnesium 1.6 mg/dL (1.6-2.3); Potassium 3.8 mmol/L (3.4-5.1); Sodium 136 mmol/L (137-145); Triglycerides 112 mg/dL (35-150)
[2020-04-02 07:38] LABS: TSH w/ Reflex to FT4 1.88 uIU/mL (0.47-4.68)
--- NOTE | 2020-04-02 08:00 | DI.MRI.S_ITS ---
PROCEDURE: MR STROKE Pre- and post-contrast brain MRI, non-contrast brain MR angiogram, pre- and postcontrast neck MR angiogram INDICATIONS: L foot numbness, weakness, TIA symptoms TECHNIQUE: Brain: Noncontrast axial T1 spin echo, axial T2 fast spin echo, sagittal and axial FLAIR, coronal T2 fast spin echo, axial gradient echo, axial diffusion and ADC through the brain. After the administration of contrast, axial 3D VIBE of the cranial vasculature and brain. Brain MRA: Non-contrast 3-D time of flight MR angiogram, with multiple ipgeglu-rxtehfwrb-mzhnnxeduf (MIP) reformats performed. Neck MRA: Axial and sagittal TruFISP through the neck. Coronal dynamic MR angiogram during administration of contrast in the arterial and venous phases, with 3-dimenstional wifigrz-hwlsudgjr-oonakdjbnh (MIP) reformats constructed from subtraction images. COMPARISON: None. FINDINGS: Image quality: Excellent. BRAIN: CSF spaces: Ventricles are normal in size and shape. Basal cisterns are patent. No extra-axial fluid collections. Brain: No intracranial bleeds or mass effects. Empty sella appearance, technically non-specific finding. Scattered small white matter changes, probably represent chronic microvascular ischemic disease, versus statistically less likely demyelination or other infectious, inflammatory, neurodegenerative etiology, technically nonspecific. Roe-white matter interface is normal. Diffusion weighted images show no acute ischemic insults. Brainstem appears normal. Normal intravascular flow voids are present. No abnormal intracranial enhancement. Skull and face: Calvarial marrow signal is normal. Orbits appear normal. Sinuses: Sinuses are clear. Right mastoid air cell fluid BRAIN MR ANGIOGRAM: Anterior circulation: Intracranial internal carotid arteries are normal in size and enhancement. Diminutive left A1 segment. The flow within the paired anterior cerebral arteries is normal and symmetric. The flow within the middle cerebral arteries is normal and symmetric. The anterior communicating artery is seen. No stenoses, occlusions, or aneurysms. Posterior circulation: The visualized portions of the vertebral arteries demonstrate normal caliber, and join to form a normal appearing basilar artery. origin of the left SIGNS AND DISPLAYS SALESPERSON. The flow within the posterior cerebral arteries is normal and symmetric. No stenoses, occlusions, or aneurysms. NECK MR ANGIOGRAM: Carotids: Great vessels demonstrate a conventional anatomy as they arise from the aortic arch. The origins of the common carotid arteries appear patent. The calibers and co and urses of both common carotid arteries are normal. The bifurcation regions appear normal bilaterally. The internal carotid arteries demonstrate normal course and caliber. Posterior circulation: The origins of the vertebral arteries appear patent. The distal right V4 segment is not seen. Dominant left vertebral artery. Normal appearing basilar artery. Miscellaneous: Subclavian arteries appear patent. Pre-contrast images through the neck show no soft tissue abnormalities. IMPRESSION: BRAIN MRI: No evidence of acute ischemia. No suspicious enhancement Right mastoid air cell fluid BRAIN MR ANGIOGRAM: No focal intracranial stenosis or occlusion NECK MR ANGIOGRAM: No evidence of hemodynamically significant ICA stenosis. Dominant left vertebral artery Dictated by: Abel Barros M.D. on 04/02/2020 at 12:47 Approved by: Abel Barros M.D. on 04/02/2020 at 12:57
[2020-04-02] MEDS: cloNIDine 0.1 MG TABLET PO (09:34)
[2020-04-02] MEDS: APIXABAN 5 MG TABLET PO (09:34)
[2020-04-02] MEDS: GABAPENTIN 300 MG CAPSULE PO (09:34)
[2020-04-02] MEDS: CHLORTHALIDONE 25 MG TABLET PO (09:34)
[2020-04-02] MEDS: FELODIPINE ER 5 MG TAB 10 MG PO (09:34)
[2020-04-02 09:43] LABS: Hemoglobin A1C% w Est Avg Glu 5.5 % (4.0-6.0)
--- NOTE | 2020-04-02 10:34 | PT.IPTN ---
checked on pt and pt currently having ECHO done. will check on pt in afternoon.
--- NOTE | 2020-04-02 11:28 | PC.NURSE ---
Patient NIH scale O. No issues doing Stroke scale packet. Patient denies any vision issues, and is able to move all extremities freely. She does complain of numbness to the outside of her l.marshall only. Up and steady on her feet, sba. Back from MRI and now getting echo done. Tele just put back on and patient is now eating her lunch.
[2020-04-02 13:00] VITALS: BP 123/68; PULSE 71; RESP 16; TEMP 36.9; O2SAT 96
--- NOTE | 2020-04-02 13:13 | DI.MRI.S_ITS ---
PROCEDURE: MR LUMBAR SPINE WO CON INDICATIONS: LLE weakness/numbness, known prior lumbar disease. No CVA. TECHNIQUE: Noncontrast sagittal T1 spin echo and T2 fast echo, sagittal STIR, axial T1 and T2 fast spin echo through the lumbar spine. In cases with scoliosis, additional coronal T2 fast spin echo may be performed. COMPARISON: [facility], CT, CT LUMBAR SPINE WO CON, 07/30/2018, 13:09. [facility], MR, L-SPINE WITHOUT CONTRAST, 09/25/2012, 9:23. [facility], MR, L-SPINE WITHOUT CONTRAST, 01/20/2009, 9:08. FINDINGS: Image quality: Excellent. Alignment and Curvature: There is moderate levoscoliotic bony alignment centered at L2-3, previously present. Bone Marrow: Marrow is of normal overall signal. No acute vertebral body compression fractures. Spinal Cord: Conus medullaris terminates at the L1 level. Visualized cord demonstrates normal signal and size. Paraspinous Soft Tissues: No paravertebral masses. L1-L2: Moderate degenerative disc disease as was previously the case, with asymmetric right greater than left facet osteoarthritis and secondary moderately severe right neural foraminal stenosis. No significant spinal stenosis.. L2-L3: Moderate degenerative disc disease, facet osteoarthritis appears also greater on the right than the left with moderately severe foraminal stenosis on the right. The uppermost transverse pedicle screw is present just below this disc level, with metallic artifact significantly limiting visualization dorsal to the L3 vertebral body. No definite change from prior scanning. L3-L4: Severe degenerative disc disease, apparent interbody disc prosthesis. Facet hyperostosis is severe on the left, and there is distortion of the thecal sac from the left posterolateral aspect displacing nerve roots anteriorly. This morphology was previously present on CT scanning 07/30/18. Moderately severe bilateral foraminal stenosis appears present, greater on the left than the right. L4-L5: The degenerative changes at this level are moderately severe and partially obscured by metal artifact from the transverse pedicle screws. Facet osteoarthritis at this level is severe. Grade 2 anterolisthesis of L4 on L5 persists. Foraminal stenosis appears likely severe but partially obscured at this level. Spinal stenosis is moderately severe due to the anterolisthesis, facet hyperostosis and subluxation. A interbody disc prosthesis is again seen but was better visualized by CT scanning in 2018 L5-S1: Moderate degenerative changes, with facet hyperostosis and foraminal stenosis greater on the right than the left, but relatively mild. No disc herniation is found. IMPRESSION: The degenerative disc disease and facet osteoarthritis along the lumbosacral spine is associated with postoperative changes of L3-L5 posterior fusion procedure previously well documented by CT and MR scanning. The degree of anterolisthesis of L4 on L5 does not appear to have progressed. The imaging is somewhat limited by metal artifact from the posterior fusion devices present. Overall there is moderately severe to severe degenerative disc disease and facet osteoarthritis but stable over time. No acute disc herniation or evidence of compression fracture is found and by current visualization underlying infection is not suspected. Dictated by: Wallace Davis M.D. on 04/02/2020 at 16:57 Approved by: Wallace Davis M.D. on 04/02/2020 at 17:20
--- NOTE | 2020-04-02 13:59 | OT.IP.EVAL ---
Past Medical History (Last Reviewed 04/01/20 @ 16:29 by SHANA Floyd) History of hyperlipidemia (Acute) History of pulmonary embolism (Acute) Hypertension (Acute) Surgical History (Last Updated 04/01/20 @ 17:51 by Get Wilder DO) H/O: knee surgery (Acute) History of back surgery (Acute) History of shoulder surgery (Acute) No significant past surgical history (Acute) Occupational Therapy Inpatient Evaluation/Re-Eval M1 PT/OT-IP Prior Functional Status Start: 04/02/20 14:40 Freq: NEEDED Status: Active Protocol: Document 04/02/20 14:41 [facility] (Rec: 04/02/20 15:10 [facility] [id number]) Medical Review Prior Functional Status Medical History Reviewed Yes Communication Independent Mobility and Gait Pt independent and did not use a device. Activities of Daily Living and IADL's Pt completely independent with all ADL and IADl needs. Social History Household Members significant other Living Arrangements Apartment/Condo Number of Floors (Floors) One Floor Number of Stairs To Enter/Railing? Pt use of elevator to get into her condo. Home Environment Standard Height Toilet,Walk in Shower Home Equipment Hand Held Shower M2 OT-IP Current Condition Start: 04/02/20 14:40 Freq: Status: Active Protocol: Document 04/02/20 14:41 [facility] (Rec: 04/02/20 15:10 [facility] [id number]) Occupational Therapy Current Condition Current Condition Evaluation Date 04/02/20 Treatment Diagnosis LLE weakness Diagnosis Onset Date 04/01/20 Weight Bearing Status Weight Bearing Status Weight Bear as Tolerated M3 OT- IP Subjective and Pain Start: 04/02/20 14:40 Freq: Status: Active Protocol: Document 04/02/20 14:41 [facility] (Rec: 04/02/20 15:10 [facility] [id number]) OT- Subjective Occupational Therapy Visit Type Type Initial Evaluation Visit Start Time 13:20 Visit Stop Time 13:59 Total Visit Minutes 39 Occupational Therapy Visit Comments Patient Comments Pt agreeable to do OT eval. Patient/Caregiver Goals Pt wanting to go home today after all medical procedures. OT Pain Assessment Pain When Pain Assessed At Rest Pain Present Pain Present Denied Pain M4 OT- IP ADL's Start: 04/02/20 14:40 Freq: Status: Active Protocol: Document 04/02/20 14:41 [facility] (Rec: 04/02/20 15:10 [facility] [id number]) OT WHD-Rmsg-Dwpfpsy Comments OT Self-Feeding Comments Not at meal meal. OT ADL-Grooming Comments OT Grooming Comments Not performed. OT ADL-Dressing General Eval Lower Body Dressing Ability Standby Assistance Areas Needing Assistance Socks Comments OT Dressing Comments Pt able to cross her legs over to [place]/doff her socks. OT ADL-Toileting General Evaluation Toileting Ability Standby Assistance Comments OT Toileting Comments Pt able to get on and off the toilet with SBA. Pt states has enough lighting at night to see, otherwise suggested to have a night light at night. Pt states at one time fell in the bathroom but now thinking back stated had a few drinks in addition to having medication a little later that night. OT ADL-Bathing Comments OT Bathing Comments Pt not wanting to shower at this time. Pt states has a built in seat and can be present. M5 OT- IP IADL's Start: 04/02/20 14:40 Freq: Status: Active Protocol: Document 04/02/20 14:41 [facility] (Rec: 04/02/20 15:10 [facility] [id number]) OT-Instrumental Activities of Daily Living Home Safety Awareness Ability to Problem Solve Emergency Able to Problem Solve Situations Medication Management Medication Management No Deficits Identified Money Management Money Management No Deficits Identified Driving Driving Concerns Identified Regarding Safety Driving Comments See details below. M6 OT- IP Functional Cognition Start: 04/02/20 14:40 Freq: Status: Active Protocol: Document 04/02/20 14:41 [facility] (Rec: 04/02/20 15:10 [facility] [id number]) Cognitive Factors Limiting Selfcare Function Cognitive Ability Level of Alertness Alert Patient Orientation Name,Day of Week,Place, Situation Attention Span Ability Capable of Focused Attention, Capable of Sustained Attention Ability to Follow Commands Able to Follow Multi-Step Commands Executive Function Ability Unable to Remember Details Cognitive Comments Cognitive Assessment Comments Pt scored 82 seconds on [place] Making B but needing cues to remember the details of the task, therefore implying that pt may have some deficits with mental flexibility , speed of processing , and executive function. however on Maze Text Instructions pt scored 37 seconds which implies WNL for attention, visuoconstructional ability and executive planning and foresight. Pt states did not get a good night rest. Suggested if driving initially to have her with her and when she feels that she is ready. OT- Vision and Hearing OT- Hearing Assessment OT- Hearing Assessment WFL OT- Vision Assessment Visual Acuity Glasses All The Time M7 OT- IP Mobility and Balance Start: 04/02/20 14:40 Freq: Status: Active Protocol: Document 04/02/20 14:41 [facility] (Rec: 04/02/20 15:10 [facility] [id number]) OT- Bed Mobility Assessment Rolling Level of Assistance Standby Assistance Supine to Sit Supine to Sit Assist Standby Assistance Sit to Supine Sit to Supine Assist Standby Assistance OT-Transfer Assessment Sit to and From Stand Sit to and from Stand Standby Assistance Transfers Transfer Ability Standby Assistance Technique Transfer Destination Bed,Chair Transfer Technique Stand Step Pivot Devices Transfer Assistive Devices Gait Belt Comments Mobility Comments Pt SBA and tends to raise her head up and get her legs to the edge of the bed. Suggested as pt has had multiple back sx in the past, showed pt log rolling technique as another option. Able to give pt energy conservation and fall prevention suggestion information sheet. OT- Gait Assessment Assistive Devices Assistive Device Gait Belt Comments Gait Ability Comments Close SBA in the room and a little unsteady on her feet but no loss of balance. Pt has a wider base of support. Pt did have socks on and states usually wears slip on shoes. In addition pt states had a failed foot surgery in the past and left foot hurt when up on it. OT- Balance Assessment Sitting Balance and Reactions Static Sitting Balance Ability Normal Dynamic Sitting Balance Ability Normal Standing Balance and Reactions Static Standing Balance Ability Good Dynamic Standing Balance Ability Fair M8 OT- IP Objective Assessments Start: 04/02/20 14:40 Freq: Status: Active Protocol: Document 04/02/20 14:41 [facility] (Rec: 04/02/20 15:10 [facility] [id number]) OT Gross Range of Motion Upper Extremity Range of Motion Assessment Within Functional Limits OT Strength Comments Strength Comments LUE 4/5 throughout, RUE 4-/5 shoulder, 4/5 elbow, and hand 4-/5, pt is right handed. OT-Muscle Tone Assessment Muscle Tone WNL Yes M9 OT- IP Assessment and Plan Start: 04/02/20 14:40 Freq: Status: Active Protocol: Document 04/02/20 14:41 [facility] (Rec: 04/02/20 15:10 [facility] [id number]) OT Summary Assessment and Plan Potential Rehabilitation Potential Excellent Analytic Complexity at Evaluation Low Summary OT Impairments Functional Mobility,Dressing, Toileting,Bathing,Toilet Transfers,Shower Transfers Progress Towards Goals Progressing Toward Goals Assessment Summary Pt low complexity and main barrier are decreased dynamic balance and right UE slightly weaker than left UE even though pt is right handed. Suggested to have provide supervision initially especially for IADl and driving needs. Pt looking to go home with to assist as needed. Goals Grooming Goal Independent Dressing Goal Independent Toileting Goal Independent Bathing Goal Independent Toilet Transfer Goal Independent Shower Transfer Goal Independent Days to Meet Goals 2 Frequency of Treatment Frequency Of Treatment Once a Day Treatment Plan OT Treatment Plan ADL Training,Functional Mobility,Patient/Family Education,Discharge Planning Other Treatment Recommendations and Next Shower if still here. Treatment Focus Discharge Recommendations OT Discharge Recommendations Home with Assistance Transportation Needs at Discharge Private Vehicle
--- NOTE | 2020-04-02 14:26 | CM.DANOTE ---
Patient is a 80 year old female who was admitted on 04/01/20 for Numbness. Pt has M[employer] and [employer] for insurance and her PCP is Dr. Edilberto Adame. EMR was reviewed. Per MD, pt has hx of multiple back surgeries and admitted for weakness and possible TIA vs CVA. Pt with negative CT scan and pending Echo and MRI. SW met bedside with pt and explained role and pt confirmed that she lives in a condo in [place] with her Life Partner Chintan Arias and is independent with ADL's at baseline. Pt's DPOA is her Dtjanie veena Kimberlee [phone]. Pt has a hx of [facility] rehab back in 2013 and [facility] in 2014 but no need for SNF since that time, pt has been living independently with no needs. Per OT, recommending safe d/c home with sig other assist. PT pending. Pt is hopeful to be able to d/c home this evening pending test results and states that her sig other Bill is available for assist and transport when she is stable for discharge. Plan: SW to follow closely for MRI and Echo results to determine if pt will be safe for discharge back home with Sig other assist and any further identified discharge planning needs. FOSTER Sommer Discharge Planning/Care Management CM Discharge Assessment Start: 04/02/20 14:24 Freq: Status: Active Protocol: Document 04/02/20 14:25 (Rec: 04/02/20 14:26 [id number]) Discharge Planning Assessment Assigned Traffic Control Officer FOSTER Wright DPOA/Assigned Designee Name Dtr veena Kimberlee Contact Information [phone] Advance Directives? No Advance Directives on File Yes History Provided By Patient,Medical Record Has Patient been admitted in last 30 No days? Prior Living Arrangements Apartment/Condo Household Members significant other Type of transporation used prior to Relies on Others admit Independent with ADL's Yes Is patient alert and oriented? Yes Caregiver for Another No Comment Likely home with sig other assist Barriers to Discharge No Discharge Plan Home Transportation Arrangement Sig Other Chintan Arias available for transport and assist at d/c Referrals Initiated None needed Review Status In Process Please Provide Date Initial DC 04/02/20 Assessment Was Performed Next Review Type Continued Stay Review
[2020-04-02 15:43] VITALS: BP 145/71; PULSE 68; RESP 18; TEMP 36.4; O2SAT 95
--- NOTE | 2020-04-02 15:45 | PT.IIE ---
Surgical History (Last Updated 04/01/20 @ 17:51 by Get Wilder DO) H/O: knee surgery (Acute) History of back surgery (Acute) History of shoulder surgery (Acute) No significant past surgical history (Acute) Medical History (Last Reviewed 04/01/20 @ 16:29 by SHANA Floyd) History of hyperlipidemia (Acute) History of pulmonary embolism (Acute) Hypertension (Acute) Physical Therapy Inpatient Evaluation/Re-Eval M1 PT/OT-IP Prior Functional Status Start: 04/02/20 14:40 Freq: NEEDED Status: Active Protocol: Document 04/02/20 14:41 [facility] (Rec: 04/02/20 15:10 [facility] [id number]) Medical Review Prior Functional Status Medical History Reviewed Yes Communication Independent Mobility and Gait Pt independent and did not use a device. Activities of Daily Living and IADL's Pt completely independent with all ADL and IADl needs. Social History Household Members significant other Living Arrangements Apartment/Condo Number of Floors (Floors) One Floor Number of Stairs To Enter/Railing? Pt use of elevator to get into her condo. Home Environment Standard Height Toilet,Walk in Shower Home Equipment Hand Held Shower M1 PT/OT-IP Prior Functional Status Start: 04/02/20 16:14 Freq: NEEDED Status: Active Protocol: Document 04/02/20 15:45 [facility] (Rec: 04/02/20 16:34 [facility] [id number]) Medical Review Prior Functional Status Medical History Reviewed Yes Communication able to make needs known Mobility and Gait pt stated that she is independent with all mobilities and ambulation without AD but uses 2 walking poles for long distance outdoor mobility Activities of Daily Living and IADL's pt stated that she is able to take of herself Social History Household Members significant other Living Arrangements Apartment/Condo Number of Floors (Floors) One Floor Number of Stairs To Enter/Railing? Pt use of elevator to get into her condo. stated that she occasionally do stairs when she is not carrying anything : 2 flights of stairs with bilateral rails Home Environment High Toilet,Walk in Shower Home Equipment Shower Seat without Backrest, Hand Held Shower,Grab Bars Near Toilet Additional Social History Comment has 2 walking poles M2 PT-IP Current Condition Start: 04/02/20 16:14 Freq: NEEDED Status: Active Protocol: Document 04/02/20 15:45 [facility] (Rec: 04/02/20 16:34 [facility] [id number]) Physical Therapy Current Condition Current Condition Evaluation Date 04/02/20 Treatment Diagnosis L foot numbness; difficulty in walking Onset Date 04/01/20 M3 PT-IP Subjective Start: 04/02/20 16:14 Freq: NEEDED Status: Active Protocol: Document 04/02/20 15:45 [facility] (Rec: 04/02/20 16:34 [facility] [id number]) Subjective Physical Therapy Visit Type Type Initial Evaluation Visit Start Time 15:45 Visit Stop Time 16:11 Total Visit Minutes 26 Number of PARACHUTE/COMBATANT DIVER OFFICER Visits 0 Physical Therapy Visit Comments Patient Comments pt agreeable to do PT; stated that she does not have any numbness on L foot anymore Therapy Pain Assessment Pain When Pain Assessed At Rest Pain Present Pain Present Pain Reported Location Lower Back Intensity 2 Scale Used Numeric (1 - 10) Pain Management Techniques Re-positioning,Timing of Activity with Medications M4 PT-IP Mobility and Gait Start: 04/02/20 16:14 Freq: NEEDED Status: Active Protocol: Document 04/02/20 15:45 [facility] (Rec: 04/02/20 16:34 [facility] [id number]) PT-Bed Mobility Assessment Rolling Type of Rolling Log Rolling Level of Assist Standby Assistance Supine to Sit Supine to Sit Standby Assistance Sit to Supine Sit to Supine Standby Assistance PT-Transfer Assessment Sit to and From Stand Sit to and from Stand Standby Assistance Equipment Transfer Assistive Device None,Gait Belt Orthotic/Prosthetic Devices or Brace: No Transfers Transfer Destination Bed,Chair Transfer Technique Stand Step Pivot Transfer Ability Level of Assist Standby Assistance Comments Mobility Comments pt sitting on chair and. completed sit to stand SBA and step transfer to bed SBA. completed log roll supine<>sit SBA. educated pt on safety and doing log roll bed mobility due to chronic LBP. pt agreed. pt ambulation in room SBA to CGA with occasional LOB but with recovery. recommended pt to use walking pole for outdoor mobility at all times and pt agreed. left pt sitting on chair. call light and table placed within reach. Gait Assessment Gait Gait Assistance Required: Standby Assistance Distance (Feet) 25 Able to Maintain Weight Bearing Status Yes During Gait Assistive Devices Assistive Device None,Gait Belt Orthotic/Prosthetic Devices or Brace: No Gait Deviations General Gait Pattern Antalgic,Decreased Stride Length,Decreased Feet Clearance,Narrow Based Gait Factors Limiting Gait Function Factors Limiting Gait Function Decreased Strength,Pain,Poor Balance Comments Gait Comments pt ambulated without AD SBA to CGA. increase lateral trunk lean to the L. Pt presents with L sided scoliosis with elevated R pelvis. pt stated that she has used a shoe lift before but has not used one for quite sometime. incidences of RLE crossing over L noted with LOB but with recovery and increases with speed. educated pt on safety and increasing awareness of upright posture and RLE placement. pt understood and agreed. PT-Balance Assessment Sitting Balance and Reactions Static Sitting Balance Ability Good Dynamic Sitting Balance Ability Good Standing Balance and Reactions Static Standing Balance Ability Good Dynamic Standing Balance Ability Fair Device Used without AD M5 PT-IP Objective Assessments Start: 04/02/20 16:14 Freq: NEEDED Status: Active Protocol: Document 04/02/20 15:45 [facility] (Rec: 04/02/20 16:34 [facility] [id number]) Orientation Orientation/Cognition Level of Alertness Alert Orientation Name,Age,Birthday,Month,Date, Year,Day of Week,Place, Situation Language Function Ability No Deficits Noted Safety Awareness Understands Safety Issues Memory Description No Deficits Noted Gross Range of Motion Lower Extremity ROM Assessment Within Functional Limits Strength Lower Extremity Strength Assessment Within Functional Limits Coordination Assessment Gross Coordination Gross Coordination WNL Muscle Tone Muscle Tone WNL Yes M6 PT-IP Treatment Start: 04/02/20 16:14 Freq: NEEDED Status: Active Protocol: Document 04/02/20 15:45 [facility] (Rec: 04/02/20 16:34 [facility] [id number]) Physical Therapy Treatment Education Education Provided Precautions,Safety M7 PT-IP Assessment and Plan Start: 04/02/20 16:14 Freq: NEEDED Status: Active Protocol: Document 04/02/20 15:45 [facility] (Rec: 04/02/20 16:34 [facility] [id number]) PT Summary Assessment and Plan Potential Rehabilitation Potential Good Status of Condition at Evaluation Stable Summary Impairments Pain,ROM,Strength,Balance,Bed Mobility,Transfers,Gait, Activity Tolerance Assessment Summary pt requiring SBA to occasional CGA with ambulation. pt plans to go home and her significant other will be able to assist her at home. pt may go home when medically stable. recommending outpt PT to address standing balance/ tolerance and leg length discrepancy. Goals Bed Mobility Goal Independent Transfer Goal Independent Gait Goal Independent Gait Distance 250 Other Goals up/down 24 steps B rails SBA Days to Meet Goals 3 Frequency of Treatment Frequency Of Treatment Once a Day Treatment Plan Physical Therapy Treatment Plan Bed Mobility Training,Transfer Training,Gait Training, Therapeutic Exercise,Balance Retraining,Discharge Planning, Hot or Cold Pack,Neuromuscular Re-ed,Manual Therapy Recommendations To Nursing Amount of Assist Needed Standby Assistance Discharge Recommendations PT Discharge Recommendations Home with Assistance, Outpatient PT Transportation Needs at Discharge Private Vehicle
--- NOTE | 2020-04-02 17:33 | DI.US.S_ITS ---
PROCEDURE: US PERIPH VENOUS LOW EXTREM BI INDICATIONS: [place]; HX LLE DVT TECHNIQUE: Real-time imaging, as well as color and pulse Doppler interrogation, were performed of the deep veins of both legs from the inguinal ligament to the popliteal fossa. COMPARISON: None. FINDINGS: Right: The common femoral, femoral and popliteal veins are normally compressible, and free of intraluminal thrombus. Color and pulse Doppler demonstrate normal phasic intravascular flow. There is normal augmentation response to distal compression maneuver. Left: The common femoral, femoral and popliteal veins are normally compressible, and free of intraluminal thrombus. Color and pulse Doppler demonstrate normal phasic intravascular flow. There is normal augmentation response to distal compression maneuver. IMPRESSION: No DVT found bilaterally over the legs. Dictated by: Wallace Davis M.D. on 04/02/2020 at 9:07 Approved by: Wallace Davis M.D. on 04/02/2020 at 9:17
--- NOTE | 2020-04-02 18:35 | P.DS_ITS ---
History of Present Illness History of Present Illness Date Patient Seen: 04/02/20 Time Patient Seen: 18:39 Chief complaint: NUMBNESS IN LEFT LEG Narrative: Shiela Brady is a 80-year-old female with past medical history of hypertension, osteopenia, rheumatoid arthritis on Enbrel, multiple back surgeries, and remote history of PE 10 years ago still on anticoagulation who presented to the emergency room with left lower extremity numbness. Patient states that yesterday evening at around 9:15 p.m. she was in the bathroom and noticed that her left leg was heavy and she was unable to move it below her knee as well as left lower extremity numbness. She experienced a fall as result of the leg weakness but she was able to drag herself into bed. She awoke at 1:00 a.m. in the morning with continued symptoms of weakness and numbness. This morning she still had residual numbness in decided to contact her primary care provider over the phone who directed her to the emergency room for further evaluation. She still reports continued numbness more so on the lateral aspect of her left leg, but her weakness has subsequently improved. She recalls a headache overnight, which is improved this morning. She denies any recent symptoms of palpitations, shortness of breath, dyspnea on exertion, chest pain. Her was at home and did not mention any difficulty with speech or word- finding. She does endorse some left lower extremity swelling and heaviness over the past 1-2 weeks. 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 She was switched to Eliquis about 2 months ago from warfarin. In the emergency room, her vital signs were unremarkable. Initial laboratory evaluation showed a mild leukocytosis at 11.8, hemoglobin of 11.3, platelet of 298. INR was 1.3. Chemistries were unremarkable. Urine drug screen was negative. CT of her head did not show any hemorrhage. EKG showed normal sinus rhythm with a first-degree AV block, no evidence of ischemia and no concerning ST or T-wave changes. Discharge Providers Provider Date of admission: 04/01/20 16:26 Discharge Date: 04/02/20 Primary care physician: Edilberto Adame MD Consults: 04/01/20 17:29 Consult to Occupational Therapy Evaluate & Treat Comment: Physician Instructions: Evaluate and treat Consult to Physical Therapy Evaluate & Treat Comment: Physician Instructions: Evaluate and Treat Discharge provider: Get Wilder DO Summary Hospital Course Discharge Diagnosis: Please see hospital course by problem list below: Hospital Course: Shiela Brady is a 80-year-old female with past medical history of hypertension, osteopenia, rheumatoid arthritis on Enbrel, multiple back surgeries, and remote history of PE 10 years ago still on anticoagulation who presented to the emergency room with left lower extremity numbness as well as resolved symptoms of left lower extremity weakness. She was admitted under observation status for possible TIA vs acute CVA and continued monitoring. Patient's symptoms had resolved by the following evening. TTE, MR stroke pr otocl, US DVT, and MRI of her L spine were ultimately negative for acute pathologies. There is no evidence of CVA on imaging and patient's symptoms ultimately resolved. She was discharged home the following day. 1. Left lower extremity numbness, acute, present on admission -patient presented with symptoms starting 9:00 p.m. the previous day with lower extremity weakness which has since resolved and continued lower extremity numbness. -bilateral lower extremity Doppler to evaluate for possible DVT was negative. -given history of multiple back surgeries as well as localized numbness on admission exam to lateral lower extremity MRI was performed of her L spine which showed no changes compared to prior CT imaging performed previously. -TTE unremarkable. MR stroke negative for infarcts or significant atherosclerotic disease. -admission head CT was negative for hemorrhage -telemetry showed atrial fibrillation, however this history is known and patient is on AC. -TSH unremarkable, A1c 5.5%, and lipid profile was unremarkable. -no medication changes are recommended at this time given above workup. 2. Hypertension, essential, present on admission -no changes were made to patient's home BP medications. 3. History of DVT and PE. Present on admission, on anticoagulation -ultrasound of b/l LE was negative for DVT as noted above. -continue home apixaban 5 mg b.i.d. 4. Rheumatoid arthritis, chronic -patient takes a Enbrel weekly, can continue -patient has known osteopenia, and takes denosumab every 6 months -continue home gabapentin Dispo: discharged home Status at Discharge Cognitive/behavioral status at discharge: oriented Functional status at discharge: independent ambulation Overall status at discharge: patient is back to baseline Exam Vital Signs (past 8 hours): - 04/02/20 13:00 04/02/20 15:43 Temperature 98.4 F 97.5 F L Pulse Rate 71 68 Respiratory Rate 16 18 Blood Pressure 123/68 145/71 H Pulse Oximetry 96 95 Oxygen Delivery Method Room Air Oxygen Flow Rate 0 Narrative Exam Narrative: GENERAL APPEARANCE: Well developed, well nourished, in no acute distress. SKIN: Inspection of the skin reveals no rashes, ulcerations or petechiae. HEENT: Normocephalic atraumatic, extraocular muscles are intact, oropharynx is clear and mucous membranes are moist, neck is supple without adenopathy NECK: Supple and symmetric. There was no thyroid enlargement, and no tenderness, or masses were felt. CHEST: Normal AP diameter and normal contour without any kyphoscoliosis. LUNGS: Auscultation of the lungs revealed no wheezes, rhonchi, or rales. CARDIOVASCULAR: There was a regular rate and rhythm without any murmurs, gallops, rubs. Peripheral pulses were 2+ and symmetric. ABDOMEN: Soft and nontender with normal bowel sounds. No ascites was noted. MUSCULOSKELETAL: There was no tenderness or effusions noted. Muscle strength and tone were normal. EXTREMITIES: No cyanosis, clubbing or edema. NEUROLOGIC: Alert and oriented x 3. Normal affect. Gait was normal. Finger to nose unremarkable. Heel to marshall unremarkable. Cranial nerves 2-12 grossly intact bilaterally. Strength is +5/5 in the Upper Extremities and Lower Extremities Bilaterally. sensation to light touch had improved to normal at time of discharge exam. Objective Labs Result Diagrams: 04/02/20 06:37 04/02/20 06:37 Labs: Laboratory Results - last 24 hr 04/02/20 04/02/20 04/02/20 06:37 06:37 06:37 WBC 9.6 RBC 3.74 L Hgb 11.6 L Hct 33.9 L MCV 90.6 MCH 30.9 MCHC 34.1 RDW 13.4 Plt Count 292 Neut % (Auto) 52.0 Lymph % (Auto) 29.5 [place] % (Auto) 10.6 Eos % (Auto) 7.0 H Baso % (Auto) 0.9 Neut # (Auto) 5000 Lymph # (Auto) 2800 [place] # (Auto) 1000 H Eos # (Auto) 700 H Baso # (Auto) 100 Sodium 136 L Potassium 3.8 Chloride 98 Carbon Dioxide 30 BUN 19 H Creatinine 0.82 Estimated GFR > 60.0 BUN/Creatinine Ratio 23.2 H Glucose 100 Hemoglobin A1c 5.5 Calcium 10.1 Magnesium 1.6 Triglycerides 112 Cholesterol 105 L LDL Cholesterol, Calc 47 HDL Cholesterol 36 L TSH 04/02/20 06:37 WBC RBC Hgb Hct MCV MCH MCHC RDW Plt Count Neut % (Auto) Lymph % (Auto) [place] % (Auto) Eos % (Auto) Baso % (Auto) Neut # (Auto) Lymph # (Auto) [place] # (Auto) Eos # (Auto) Baso # (Auto) Sodium Potassium Chloride Carbon Dioxide BUN Creatinine Estimated GFR BUN/Creatinine Ratio Glucose Hemoglobin A1c Calcium Magnesium Triglycerides Cholesterol LDL Cholesterol, Calc HDL Cholesterol TSH 1.88 Discharge Plan Discharge Plan Patient Disposition: Home Discharge comment: You were admitted to the hospital with left lower extremity numbness and weakness. This could be due to a TIA but no exact cause was found. Ultrasound of your lower extremity was negative, MRI of your lower back did not show any significant changes compared to prior CT imaging, an MRI of her brain did not show any evidence of stroke or narrowing in your blood vessels. Your cholesterol was remarkably low and no additional medication changes are recommended. Discharge orders & Medications Prescriptions: Continued clonidine HCl 0.1 mg Tablet 0.1 mg PO BID RF: 0 atorvastatin 20 mg Tablet 20 mg PO BEDTIME RF: 0 chlorthalidone 25 mg Tablet 25 mg PO DAILY RF: 0 fexofenadine [Sadie Allergy] 180 mg Tablet 180 mg PO DAILY PRN (Reason: Allergy Symptoms) RF: 0 omeprazole 20 mg Capsule,Delayed Release(Dr/Ec) 20 mg PO DAILY RF: 0 multivitamin Capsule 1 cap PO QAM RF: 0 Enbrel 25 mg/0.5mL (0.51) Syringe 50 mg SUBCUT QWEEK RF: 0 Prolia 60 mg/mL Syringe 60 mg SUBCUT [id number] RF: 0 leflunomide 10 mg Tablet 10 mg PO DAILY RF: 0 calcium carbonate [Calcium 600] 600 mg calcium (1,500 mg) Tablet 1,200 mg PO DAILY RF: 0 gabapentin 300 mg Capsule 300 mg PO QAM RF: 0 gabapentin 300 mg Capsule 900 mg PO BEDTIME RF: 0 felodipine 10 mg Tablet Extended Release 24 Hr 10 mg PO DAILY RF: 0 cholecalciferol (vitamin D3) [Vitamin D3] 50 mcg (2,000 unit) Tablet 2,000 unit PO BID RF: 0 Eliquis 5 mg Tablet 5 mg PO BID RF: 0 Follow up/Referrals: Edilberto Adame MD [Primary Care Provider] - Discharge Health Status Health Concerns: Left lower extremity numbness Diet/Activity/Treatments Diet: Diet as Tolerated Activity: As tolerated Visit Report/Discharge Packet Instructions: Transient Ischemic Attack Discharge Data Primary Care Provider: Edilberto Adame V Attending Provider: Get Wilder Admit Date/Time: 04/01/20 16:26 Discharges patient from system. Discharge Date/Time: 04/02/20 19:45 Quality VTE Deep Vein Thrombosis/Pulmonary Embolism Present on Admission: No
--- NOTE | 2020-04-02 18:39 | PC.NURSE ---
Addendum entered by Stacy Shook R.N. 04/02/20 20:11: Pt escorted off unit by check out clerk via w/c to parking lot. Pt left in private vehicle in stable condition with all personal belongings. Original Note: Assumed care of pt at 1500. Pt off unit for MRI during hand-off report at 1515. Returned at approx 1545. NIH 0. Denies numbness or weakness. in for rounding; D/C to home ordered.
== END 2020-04-02 19:45 | disposition home or self-care (01) ==
LOC: ED 16:14 → AC 16:26
PROVIDERS: Admitting Provider Internal Medicine; Emergency Provider Nurse Practitioner; PCP Internal Medicine; Visit Provider Internal Medicine
DX: R20.0 Anesthesia of skin (principal); Z86.718 Personal history of other venous thrombosis and embolism; Z79.01 Long term (current) use of anticoagulants; Z86.711 Personal history of pulmonary embolism; R26.2 Difficulty in walking, not elsewhere classified; I10 Essential (primary) hypertension; M06.9 Rheumatoid arthritis, unspecified; M85.80 Other specified disorders of bone density and structure, unspecified site
CPT/HCPCS: 36415; 70450; 70548; 70553; 72148; 80048; 80053; 80061; 80305; 83036; 83735; 84443; 85025; 85610; 85730; 93005; 93306; 93970; 96360; 97161; 97165; 97530; 99284; 99285; G0378

== ENCOUNTER → 2020-10-10 15:44 | Outpatient (CLI) | payer MEDICARE, SELFPAY ==
--- NOTE | 2020-10-10 15:48 | DI.MG.S_ITS ---
BILATERAL DIGITAL SCREENING MAMMOGRAM 3D/2D WITH CAD WITH AUGMENTATION: 10/10/2020 CLINICAL: Routine screening. Family history of breast cancer. Comparison is made to exams dated: 09/20/2019 mammogram, 09/02/2017 mammogram, and 09/01/2016 mammogram - [facility]. There are scattered fibroglandular elements in both breasts. Current study was also evaluated with a Computer Aided Detection (CAD) system. Bilateral breast implants are stable. There are benign vascular calcifications in both breasts. No significant masses, calcifications, or other findings are seen in either breast. There has been no significant interval change. IMPRESSION: BENIGN There is no mammographic evidence of malignancy. A 1 year screening mammogram is recommended. This exam was interpreted at Station ID: [id number]. NOTE: For mammograms, a report in lay terms will be sent to the patient. Approximately 15% of breast malignancies will not be visualized mammographically. In the management of a palpable breast mass, a negative mammogram must not discourage biopsy of a clinically suspicious lesion. Electronically Signed By: Fatemeh sweeney/sylvia:10/14/2020 10:27:38 letter sent: Normal Exam ACR BI-RADS Category 2: Benign Finding(s) 3342F
== END ==
PROVIDERS: PCP Internal Medicine; Referring Provider Internal Medicine; Visit Provider Internal Medicine
DX: Z12.31 Encounter for screening mammogram for malignant neoplasm of breast (principal); Z80.3 Family history of malignant neoplasm of breast
CPT/HCPCS: 77063; 77067

== ENCOUNTER 2021-03-07 13:10 | Emergency (ER) | payer MEDICARE, SELFPAY ==
[2021-03-07 13:23] VITALS: PULSE 69; RESP 12; O2SAT 95; BMI 26.4
--- NOTE | 2021-03-07 13:30 | DI.RAD.S_ITS ---
PROCEDURE: XR HAND RT MIN 3V INDICATIONS: fall, laceration, shattered glass TECHNIQUE: 3 views of the hand(s) acquired. COMPARISON: None. FINDINGS: Bones: No fractures or dislocations. Carpal bones are normally aligned. No suspicious bony lesions. Age-appropriate bony degenerative changes are seen. Soft tissues: No suspicious soft tissue calcifications. No chris radiopaque foreign bodies are seen. IMPRESSION: To the limits of plain film, no radiopaque foreign bodies are seen. Dictated by: Vito Johnson M.D. on 03/07/2021 at 12:42 Approved by: Vito Johnson M.D. on 03/07/2021 at 12:43
[2021-03-07 15:37] VITALS: BP 198/81; PULSE 86; RESP 20; O2SAT 98
--- NOTE | 2021-03-07 15:45 | ED_ITS ---
HPI - Wound/Laceration General Chief Complaint: Wound/Laceration Stated Complaint: CUT RIGHT PAD OF HAND Time Seen by Provider: 03/07/21 15:29 Source: patient Mode of arrival: Ambulatory Limitations: no limitations History of Present Illness HPI narrative: Patient is an 81-year-old female here for evaluation of cuts that she sustained to her right hand. She states that prior to arrival she had a glass plate break in her right hand. Sustained multiple cuts to the area. She is on blood thinners. She is right-handed. Related Data Home Medications Medication Instructions Recorded Confirmed Enbrel 50 mg SUBCUT QWEEK 01/14/19 09/09/20 Prolia 60 mg SUBCUT [id number] 01/14/19 09/09/20 atorvastatin 20 mg PO BEDTIME 01/14/19 09/09/20 chlorthalidone 25 mg PO DAILY 01/14/19 09/09/20 clonidine HCl 0.1 mg PO BID 01/14/19 09/09/20 fexofenadine [Sadie Allergy] 180 mg PO DAILY PRN 01/14/19 09/09/20 multivitamin 1 cap PO QAM 01/14/19 09/09/20 omeprazole 20 mg PO DAILY 01/14/19 09/09/20 Eliquis 5 mg PO BID 04/02/20 09/09/20 calcium carbonate [Calcium 600] 1,200 mg PO DAILY 04/02/20 09/09/20 cholecalciferol (vitamin D3) 2,000 unit PO BID 04/02/20 09/09/20 [Vitamin D3] gabapentin 300 mg PO QAM 04/02/20 09/09/20 gabapentin 900 mg PO BEDTIME 04/02/20 09/09/20 leflunomide 10 mg PO DAILY 04/02/20 09/09/20 Allergies Allergy/AdvReac Type Severity Reaction Status Date / Time atracurium [ATRACURIUM] Allergy Unknown Verified 03/07/21 13:28 mivacurium [MIVACURIUM] Allergy Unknown Verified 03/07/21 13:28 succinylcholine Allergy Unknown Verified 03/07/21 13:28 [SUCCINYLCHOLINE] enalaprilat [From VASOTEC] AdvReac Mild cough Verified 03/07/21 13:28 Review of Systems Constitutional Constitutional: Denies fever(s) Cardiovascular Cardiovascular: Denies chest pain and Denies dyspnea Respiratory Respiratory: Denies dyspnea Musculoskeletal Musculoskeletal: Denies tingling Integumentary/Breasts Comments: Multiple cuts to right hand Neurologic Neurologic: Denies tingling Hematologic/Lymphatic On Anticoagulants: Yes Allergic/Immunologic Allergic/Immunologic: Denies urticaria Patient History Medical History History of hyperlipidemia History of pulmonary embolism Hypertension Uterine prolapse Surgical History H/O: knee surgery History of back surgery History of shoulder surgery No significant past surgical history Family History Mother Hypertension TIA (transient ischemic attack) Social History household members: significant other Smoking Status: Never smoker Smoking Status: Never smoker alcohol intake frequency: a few times a week Substance Use Type: does not use Exam Initial Vital Signs Initial Vital Signs: Vital Signs Pulse Rate 69 03/07/21 13:23 Respiratory Rate 12 03/07/21 13:23 Pulse Oximetry 95 03/07/21 13:23 Const General: cooperative and comfortable Limitations: mental status not altered HENMT Head: normal to inspection and normocephalic Cardio Pulses: radial pulses present on the right Skin Other: Patient has multiple wounds to her right hand. The largest being a 2 cm wound on the volar aspect just distal to the wrist. She also has a small irregular wound on the hypothenar eminence. She also has multiple small puncture wounds and small wounds on her middle and ring fingers ulnar aspect. Neuro General: patient alert and patient awake Cognition: normal cognition Speech: speech normal Procedures Laceration Repair Laceration 1: Site: hand Side (If applicable): right Size (cm): 2 Description: linear Depth: simple, single layer Pre-repair: irrigated extensively Skin layer closed with: dermabond Course Orders Ordered: ED Orders 03/07/21 13:30 XR hand RT min 3V Stat Vital Signs Vital signs: Vital Signs - 8 hr 03/07/21 13:23 03/07/21 15:37 Pulse Rate 69 86 Respiratory Rate 12 20 Blood Pressure 198/81 H Pulse Oximetry 95 98 MDM - Wound/Laceration Imaging Data Extremity x-ray #1: Radiologist's Impression: [address] [id number] ReportSigned Patient: Shiela Brady AMR#: [id number]: [id number]/Sex: 81 / FDate of Service: 03/07/21Loc: EDAccession Number: [id number] Procedure: XR hand RT min 3V Ordering Provider: Debi Rios D.O. PROCEDURE: XR HAND RT MIN 3V INDICATIONS: fall, laceration, shattered glass TECHNIQUE: 3 views of the hand(s) acquired. COMPARISON: None. FINDINGS: Bones: No fractures or dislocations. Carpal bones are normally aligned. No suspicious bony lesions. Age-appropriate bony degenerative changes are seen. Soft tissues: No suspicious soft tissue calcifications. No chris radiopaque foreign bodies are seen. IMPRESSION: To the limits of plain film, no radiopaque foreign bodies are seen. Dictated by: Vito Johnson M.D. on 03/07/2021 at 12:42 Approved by: Vito Johnson M.D. on 03/07/2021 at 12:43 [facility] Narrative Medical decision making narrative: Wounds were cleaned. Closed with Dermabond and Steri-Strips as described above. Is not actively bleeding. Patient was given care instructions and return precautions. She expressed understanding and agreement. Discharge Plan Departure Patient Disposition: Home Clinical Impression: Laceration Instructions: DI for Minor Laceration Activity Restrictions/Additional Instructions: The Steri-Strips and Dermabond will start to work themselves off over the next several days. You can wash your hands like normal. Do not soak your hands in anything until the wounds are healed. Contact your primary provider for a follow-up. Return to the emergency department for any new or worsening symptoms Prescriptions: No Action clonidine HCl 0.1 mg Tablet 0.1 mg PO BID RF: 0 atorvastatin 20 mg Tablet 20 mg PO BEDTIME RF: 0 chlorthalidone 25 mg Tablet 25 mg PO DAILY RF: 0 fexofenadine [Sadie Allergy] 180 mg Tablet 180 mg PO DAILY PRN (Reason: Allergy Symptoms) RF: 0 omeprazole 20 mg Capsule,Delayed Release(Dr/Ec) 20 mg PO DAILY RF: 0 multivitamin Capsule 1 cap PO QAM RF: 0 Enbrel 25 mg/0.5mL (0.51) Syringe 50 mg SUBCUT QWEEK RF: 0 Prolia 60 mg/mL Syringe 60 mg SUBCUT [id number] RF: 0 leflunomide 10 mg Tablet 10 mg PO DAILY RF: 0 calcium carbonate [Calcium 600] 600 mg calcium (1,500 mg) Tablet 1,200 mg PO DAILY RF: 0 gabapentin 300 mg Capsule 300 mg PO QAM RF: 0 gabapentin 300 mg Capsule 900 mg PO BEDTIME RF: 0 cholecalciferol (vitamin D3) [Vitamin D3] 50 mcg (2,000 unit) Tablet 2,000 unit PO BID RF: 0 Eliquis 5 mg Tablet 5 mg PO BID RF: 0 Referrals: Edilberto Adame MD [Primary Care Provider] -
== END 2021-03-07 15:54 | disposition home or self-care (01) ==
PROVIDERS: Emergency Provider Emergency Medicine; PCP Internal Medicine
DX: S61.411A Laceration without foreign body of right hand, initial encounter (principal); W25.XXXA Contact with sharp glass, initial encounter
CPT/HCPCS: 73130; 99283

== ENCOUNTER 2021-08-05 17:48 | Emergency (ER) | payer MEDICARE, SELFPAY ==
[2021-08-05] VITALS (14 sets, daily range): BP systolic 118–189; BP diastolic 65–94; PULSE 58–92; RESP 16–34; TEMP 36.4; O2SAT 92–96; BMI 28.3
--- NOTE | 2021-08-05 18:14 | DI.RAD.S_ITS ---
PROCEDURE: XR CHEST 1V INDICATIONS: chest pain TECHNIQUE: One view of the chest was acquired. COMPARISON: [facility], , CHEST 1 VIEW, 12/30/2013, 7:52. FINDINGS: Surgical changes and devices: Bilateral breast prosthesis with capsular calcification similar prior exam. Lungs and pleura: Lungs are clear. No pleural effusions or pneumothorax. Persistent right hemidiaphragm eventration. Chronic interstitial changes noted. Mediastinum: Mediastinal contours appear normal. Heart size is normal. Bones and chest wall: No suspicious bony lesions. Overlying soft tissues appear unremarkable. IMPRESSION: No acute cardiopulmonary findings Approved by: Gagandeep Olivares M.D. on 08/05/2021 at 17:44
[2021-08-05 18:29] LABS: Add Manual Diff / Slide Review NO; Basophils Absolute Auto 100 /uL (0-100); Eosinophils Absolute Auto 400 /uL (0-450); Eosinophils Percent Auto 3.8 % (2-4); Hematocrit 37.5 % (36-46); Hemoglobin 12.9 g/dL (12.0-16.0); Lymphocytes Absolute Auto 3700 /uL (1100-4500); Lymphocytes Percent Auto 35.3 % (25-40); Mean Corpuscular HGB Conc 34.4 % (30-36); Mean Corpuscular Hemoglobin 31.4 PG (26-34); Mean Corpuscular Volume 91.3 fL (80-100); Monocytes Absolute Auto 700 /uL (0-900); Neutrophils Absolute Auto 5500 /uL (1500-7000); Neutrophils Percent Auto 52.9 % (50-75); Platelet Count 290 X10^3/uL (150-400); Red Cell Distribution Width 13.5 % (11.6-14.8); White Blood Cell Count 10.4 X10^3/uL (4.5-11.0)
[2021-08-05 18:33] LABS: Alanine Aminotransferase 14 IU/L (<35); Albumin 4.4 g/dL (3.5-5.0); Albumin Globulin Ratio 1.2 (1.0-2.8); Alkaline Phosphatase 86 U/L (38-126); Aspartate Aminotransferase 24 IU/L (14-36); BUN Creatinine Ratio 25.8 (6-22); Bilirubin Total 0.3 mg/dL (0.2-1.3); Blood Urea Nitrogen 25 mg/dL (7-17); Calcium 9.9 mg/dL (8.4-10.2); Carbon Dioxide 31 mmol/L (22-32); Chloride 106 mmol/L (98-107); Creatine Kinase 57 U/L (30-135); Estimated Glomerular Filt Rate 55.3 mL/min (>60); Globulin 3.6 g/dL (1.7-4.1); Glucose 128 mg/dL (80-110); HEMOLYSIS 28 (0-50); Lipase 105 U/L (23-300); Potassium 3.3 mmol/L (3.4-5.1); Sodium 144 mmol/L (137-145)
[2021-08-05 18:44] LABS: Troponin I < 0.012 ng/mL (0.01-0.034)
--- NOTE | 2021-08-05 20:36 | ED.SOB ---
HPI - SOB/Dyspnea General Chief Complaint: Shortness of Breath/Dyspnea Stated Complaint: heart feels like it is working too hard Time Seen by Provider: 08/05/21 20:20 Source: patient Mode of arrival: Ambulatory Limitations: no limitations History of Present Illness HPI Narrative: Patient is an 81-year-old female history of DVT and PE on Eliquis presenting with couple weeks of palpitations and some shortness of breath. She says is not any worse today but is just not getting any better. She really does not have chest discomfort which she sometimes feels like she is short of breath to walk. No fever or chills no productive cough. She denies any orthopnea no peripheral edema. She is worried is some associated quite an extensive DVT which developed into a pulmonary embolism. However she has not missed any doses of her anticoagulation. Related Data Home Medications Medication Instructions Recorded Confirmed atorvastatin 20 mg tablet 20 mg PO BEDTIME 01/14/19 09/09/20 chlorthalidone 25 mg tablet 25 mg PO DAILY 01/14/19 09/09/20 clonidine HCl 0.1 mg tablet 0.1 mg PO BID 01/14/19 09/09/20 denosumab 60 mg/mL subcutaneous 60 mg SUBCUT [id number] 01/14/19 09/09/20 syringe (Prolia) etanercept (Enbrel) 50 mg SUBCUT QWEEK 01/14/19 09/09/20 fexofenadine 180 mg tablet 180 mg PO DAILY PRN 01/14/19 09/09/20 (Sadie Allergy) multivitamin 1 cap PO QAM 01/14/19 09/09/20 omeprazole 20 mg capsule,delayed 20 mg PO DAILY 01/14/19 09/09/20 release apixaban 5 mg tablet (Eliquis) 5 mg PO BID 04/02/20 09/09/20 calcium carbonate 600 mg calcium 1,200 mg PO DAILY 04/02/20 09/09/20 (1,500 mg) tablet (Calcium) cholecalciferol (vitamin D3) 50 2,000 unit PO BID 04/02/20 09/09/20 mcg (2,000 unit) tablet (Vitamin D3) gabapentin 300 mg capsule 300 mg PO QAM 04/02/20 09/09/20 gabapentin 300 mg capsule 900 mg PO BEDTIME 04/02/20 09/09/20 leflunomide 10 mg tablet 10 mg PO DAILY 04/02/20 09/09/20 Allergies Allergy/AdvReac Type Severity Reaction Status Date / Time atracurium [ATRACURIUM] Allergy Unknown Verified 03/07/21 13:28 mivacurium [MIVACURIUM] Allergy Unknown Verified 03/07/21 13:28 succinylcholine Allergy Unknown Verified 03/07/21 13:28 [SUCCINYLCHOLINE] enalaprilat [From VASOTEC] AdvReac Mild cough Verified 03/07/21 13:28 Review of Systems Review of Systems Narrative: GENERAL: Denies chills, fatigue, malaise, fever, sweats, travel HEENT: Denies sinus pain, ear pain, sore throat, difficulty swallowing, neck pain RESPIRATORY: See HPI CARDIOVASCULAR: See HPI GASTROINTESTINAL: Denies nausea, vomiting, abdominal pain, diarrhea, constipation, melena. : Denies dysuria, frequency, incontinence, hematuria, urinary retention, flank pain. MUSCULOSKELETAL: Denies weakness, joint pain, or bony pain SKIN: No rash, no erythema, no pruritus NEUROLOGIC: Denies weakness, dizziness, headache, numbness, change in speech, confusion PSYCHIATRIC: No concerning psychosocial issues. 12 point review of systems is negative except for those stated above and HPI Patient History Medical History (Updated 08/05/21 @ 21:24 by Debi Rios DO) History of hyperlipidemia History of pulmonary embolism Hypertension Uterine prolapse Surgical History H/O: knee surgery History of back surgery History of shoulder surgery No significant past surgical history Family History Mother Hypertension TIA (transient ischemic attack) Social History household members: significant other Smoking Status: Never smoker Smoking Status: Never smoker alcohol intake frequency: a few times a week Substance Use Type: does not use Exam Initial Vital Signs Initial Vital Signs: Vital Signs Temperature 97.6 F 08/05/21 17:53 Pulse Rate 80 08/05/21 17:53 Respiratory Rate 16 08/05/21 17:53 Blood Pressure 189/84 H 08/05/21 17:53 Pulse Oximetry 95 08/05/21 17:53 GENERAL: Alert pleasant 81-year-old female HEENT: Head atraumatic,EOMI, pupils reactive, face symmetric, moist mucous membranes CARDIOVASCULAR: Regular rate and rhythm without murmurs, rubs or gallops. RESPIRATORY: Breath sounds equal bilaterally, no wheezes rales or rhonchi. ABDOMEN: Soft, nontender. Normoactive bowel sounds all 4 quadrants. No guarding or rebound. : No CVA tenderness EXTREMITIES: Normal range of motion, no clubbing or edema. Neurovascularly intact NEUROLOGICAL: Alert and oriented x4.Normal gait and speech. SKIN: Warm, dry, no laceration, no petechiae, no rashes or lesions. Course Orders Ordered: ED Orders 08/05/21 18:08 Complete Blood Count AUTO DIFF Stat Comprehensive Metabolic Panel Stat Lipase Stat NT-proBNP (BNP-Adult 18+) Stat Troponin & CK Cardiac Panel Stat 08/05/21 18:14 XR chest 1V Stat EKG-12 Lead Stat 08/05/21 20:38 CT angio chest PE protocol Stat Vital Signs Vital signs: Vital Signs - 8 hr 08/05/21 18:02 08/05/21 18:03 08/05/21 18:30 Pulse Rate 92 H 82 71 Respiratory Rate 20 Blood Pressure 118/94 H 155/81 H Pulse Oximetry 95 94 94 08/05/21 19:00 08/05/21 19:30 08/05/21 20:00 Pulse Rate 67 67 63 Respiratory Rate 24 23 34 H Blood Pressure 170/65 H 155/82 H Pulse Oximetry 94 92 94 08/05/21 20:01 08/05/21 20:30 08/05/21 21:01 Pulse Rate 66 64 68 Respiratory Rate 25 H 27 H Blood Pressure 171/74 H 164/74 H Pulse Oximetry 94 95 95 08/05/21 21:30 08/05/21 21:31 08/05/21 21:48 Pulse Rate 64 62 58 L Respiratory Rate 33 H 21 Blood Pressure 175/80 H Pulse Oximetry 96 95 96 08/05/21 21:49 Pulse Rate Respiratory Rate Blood Pressure 179/81 H Pulse Oximetry MDM - SOB/Dyspnea Lab Data Result diagrams: 08/05/21 18:08 08/05/21 18:08 Labs: Lab Results 08/05/21 08/05/21 08/05/21 Range/Units 18:08 18:08 18:08 WBC 10.4 (4.5-11.0) X10^3/uL RBC 4.10 (4.0-5.2) X10^6/uL Hgb 12.9 (12.0-16.0) g/dL Hct 37.5 (36-46) % MCV 91.3 (80-100) fL MCH 31.4 (26-34) PG MCHC 34.4 (30-36) % RDW 13.5 (11.6-14.8) % Plt Count 290 (150-400) X10^3/uL Neut % (Auto) 52.9 (50-75) % Lymph % (Auto) 35.3 (25-40) % Childress % (Auto) 7.0 (3-14) % Eos % (Auto) 3.8 (2-4) % Baso % (Auto) 1.0 (0-2) % Neut # (Auto) 5500 (9307-4453) /uL Lymph # (Auto) 3700 (2341-1633) /uL Childress # (Auto) 700 (0-900) /uL Eos # (Auto) 400 (0-450) /uL Baso # (Auto) 100 (0-100) /uL Sodium 144 (137-145) mmol/L Potassium 3.3 L (3.4-5.1) mmol/L Chloride 106 (98-107) mmol/L Carbon Dioxide 31 (22-32) mmol/L BUN 25 H (7-17) mg/dL Creatinine 0.97 (0.52-1.04) mg/dL Estimated GFR 55.3 L (>60) mL/min BUN/Creatinine Ratio 25.8 H (6-22) Glucose 128 H (80-110) mg/dL Calcium 9.9 (8.4-10.2) mg/dL Total Bilirubin 0.3 (0.2-1.3) mg/dL AST 24 (14-36) IU/L ALT 14 (<35) IU/L Alkaline Phosphatase 86 (38-126) U/L Total Creatine Kinase 57 (30-135) U/L CK-MB (CK-2) TNP CK-MB (CK-2) Rel Index TNP Troponin I < 0.012 (0.01-0.034) ng/mL NT-Pro-B Natriuret Pep 96 (<450) pg/mL Total Protein 8.0 (6.3-8.2) g/dL Albumin 4.4 (3.5-5.0) g/dL Globulin 3.6 (1.7-4.1) g/dL Albumin/Globulin Ratio 1.2 (1.0-2.8) Lipase 105 (23-300) U/L Imaging Data Chest x-ray: Radiologist's Impression: PROCEDURE:? XR CHEST 1V ? INDICATIONS:? chest pain ? TECHNIQUE:? One view of the chest was acquired.? ? COMPARISON:? [facility], CR, CHEST 1 VIEW, 12/30/2013, 7:52. ? FINDINGS:? ? Surgical changes and devices:? Bilateral breast prosthesis with capsular calcification similar prior exam. ? Lungs and pleura:? Lungs are clear.? No pleural effusions or pneumothorax.? Persistent right hemidiaphragm eventration.? Chronic interstitial changes noted. ? Mediastinum:? Mediastinal contours appear normal.? Heart size is normal.? ? Bones and chest wall:? No suspicious bony lesions.? Overlying soft tissues appear unremarkable.? ? IMPRESSION:? No acute cardiopulmonary findings ? ? ? Approved by: Gagandeep Olivares M.D. on 08/05/2021 at 17:44? CT scan - chest: Radiologist's Impression: PROCEDURE:? CT ANGIO CHEST PE PROTOCOL ? INDICATIONS:? sob with hx of pe ? TECHNIQUE:? After the administration of intravenous contrast, 2 mm thick sections acquired from the pulmonary apices to the posterior costophrenic angles.? 3-dimensional maximum intensity projection (MIP) coronal and sagittal reformats were then acquired through the thorax.? For radiation dose reduction, the following was used:? automated exposure control, adjustment of mA and/or kV according to patient size.? ? COMPARISON:? [facility], CT, CT ANGIO CHEST PE PROTOCOL, 01/14/2019, 13:35. ? FINDINGS:? Image quality:? Excellent.? ? Pulmonary arteries:? Pulmonary arteries are normal in size, and demonstrate no intraluminal filling defects to suggest central pulmonary embolism.? ? Lungs and pleura:? A small calcified granuloma is seen in the left upper lobe.? No acute airspace opacity.? Mild dependent atelectasis is seen in the lung bases bilaterally.? No pleural effusions or pneumothorax.? Central and peripheral airways are patent.? ? Mediastinum:? Heart size is stable, without pericardial effusion.? Coronary artery calcifications are present.? Mild aortic atherosclerosis.? No mediastinal or hilar adenopathy.? Thoracic aorta is normal in caliber and enhancement.? Esophagus is normal in caliber, without hiatal hernia.? ? Bones and chest wall:? Bilateral breast implants are present.? No suspicious bony lesions.? Multilevel degenerative changes are seen in the spine.? A subcentimeter hypodense nodule is seen in the inferior right thyroid.? No axillary or supraclavicular adenopathy.? ? Abdomen:? Status post cholecystectomy.? Bilateral renal cysts are partially imaged.? Visualized upper abdominal solid organs otherwise appear normal in the early arterial phase of enhancement.? ? IMPRESSION:? No acute pulmonary embolus.? No acute abnormality is identified in the chest. ? ? Dictated by: Johan Bergeron M.D. on 08/05/2021 at 21:12? ECG Data Interpretation: Normal sinus rhythm rate 71 DE interval 200 QRS 98 QTC 389 previous 1st degree AV block noted in prior EKGs. Q-wave noted in inferior leads also seen in previous EKGs. No ST changes or T-wave inversions similar to prior MDM Narrative Medical decision making narrative: Patient has been having on going weeks of some palpitations and increasing shortness of breath. Symptoms do not seem to be improving. Blood work does not show any evidence of congestive heart failure. CT does not show any pulmonary embolism. At this time he is not hypoxic is a testing was overall reassuring. She has no signs or symptoms of infection. I do recommend outpatient echocardiogram and stress test. However at this time patient really declines any chest pain. Symptoms have been worsening they just are not going away. Discharge Plan Departure Patient Disposition: Home Clinical Impression: Atypical chest pain Instructions: DI for Atypical Chest Pain Activity Restrictions/Additional Instructions: *You have been diagnosed with atypical chest pain *What to do: At this time blood work is overall reassuring. No evidence of pulmonary embolism. You may need further cardiac testing such as a stress test with your primary care provider. *Continue to take medications as directed *Follow up with your primary care provider in 2-3 days *Return to ER if you should have increasing chest pain, shortness of breath, palpitation any new, worsening or concerning symptoms Prescriptions: No Action clonidine HCl 0.1 mg Tablet 0.1 mg PO BID RF: 0 atorvastatin 20 mg Tablet 20 mg PO BEDTIME RF: 0 chlorthalidone 25 mg Tablet 25 mg PO DAILY RF: 0 fexofenadine [Sadie Allergy] 180 mg Tablet 180 mg PO DAILY PRN (Reason: Allergy Symptoms) RF: 0 omeprazole 20 mg Capsule,Delayed Release(Dr/Ec) 20 mg PO DAILY RF: 0 multivitamin Capsule 1 cap PO QAM RF: 0 Enbrel 25 mg/0.5mL (0.51) Syringe 50 mg SUBCUT QWEEK RF: 0 Prolia 60 mg/mL Syringe 60 mg SUBCUT [id number] RF: 0 leflunomide 10 mg Tablet 10 mg PO DAILY RF: 0 calcium carbonate [Calcium 600] 600 mg calcium (1,500 mg) Tablet 1,200 mg PO DAILY RF: 0 gabapentin 300 mg Capsule 300 mg PO QAM RF: 0 gabapentin 300 mg Capsule 900 mg PO BEDTIME RF: 0 cholecalciferol (vitamin D3) [Vitamin D3] 50 mcg (2,000 unit) Tablet 2,000 unit PO BID RF: 0 Eliquis 5 mg Tablet 5 mg PO BID RF: 0 Referrals: Edilberto Adame MD [Primary Care Provider] -
--- NOTE | 2021-08-05 20:38 | DI.CT.S_ITS ---
PROCEDURE: CT ANGIO CHEST PE PROTOCOL INDICATIONS: sob with hx of pe TECHNIQUE: After the administration of intravenous contrast, 2 mm thick sections acquired from the pulmonary apices to the posterior costophrenic angles. 3-dimensional maximum intensity projection (MIP) coronal and sagittal reformats were then acquired through the thorax. For radiation dose reduction, the following was used: automated exposure control, adjustment of mA and/or kV according to patient size. COMPARISON: [facility], CT, CT ANGIO CHEST PE PROTOCOL, 01/14/2019, 13:35. FINDINGS: Image quality: Excellent. Pulmonary arteries: Pulmonary arteries are normal in size, and demonstrate no intraluminal filling defects to suggest central pulmonary embolism. Lungs and pleura: A small calcified granuloma is seen in the left upper lobe. No acute airspace opacity. Mild dependent atelectasis is seen in the lung bases bilaterally. No pleural effusions or pneumothorax. Central and peripheral airways are patent. Mediastinum: Heart size is stable, without pericardial effusion. Coronary artery calcifications are present. Mild aortic atherosclerosis. No mediastinal or hilar adenopathy. Thoracic aorta is normal in caliber and enhancement. Esophagus is normal in caliber, without hiatal hernia. Bones and chest wall: Bilateral breast implants are present. No suspicious bony lesions. Multilevel degenerative changes are seen in the spine. A subcentimeter hypodense nodule is seen in the inferior right thyroid. No axillary or supraclavicular adenopathy. Abdomen: Status post cholecystectomy. Bilateral renal cysts are partially imaged. Visualized upper abdominal solid organs otherwise appear normal in the early arterial phase of enhancement. IMPRESSION: No acute pulmonary embolus. No acute abnormality is identified in the chest. Dictated by: Johan Bergeron M.D. on 08/05/2021 at 21:12 Approved by: Johan Bergeron M.D. on 08/05/2021 at 21:18
[2021-08-05 21:48] LABS: NT-proBNP (BNP-Adult 18+) 96 pg/mL (<450)
== END 2021-08-05 22:01 | disposition home or self-care (01) ==
PROVIDERS: Emergency Provider Emergency Medicine; PCP Internal Medicine; Referring Provider Internal Medicine
DX: R07.89 Other chest pain (principal); R06.02 Shortness of breath
CPT/HCPCS: 36415; 71045; 71275; 80053; 82550; 83690; 83880; 84484; 85025; 93005; 93010; 99284

== ENCOUNTER 2021-08-11 12:59 | Emergency (ER) | payer MEDICARE, SELFPAY ==
[2021-08-11 13:05] VITALS: BP 194/97; PULSE 77; RESP 22; TEMP 37.1; O2SAT 97
--- NOTE | 2021-08-11 13:09 | DI.CT.S_ITS ---
PROCEDURE: CT PEL WO CON INDICATIONS: fall with head injury, left hip TECHNIQUE: Noncontrast 3 mm axial sections acquired through the bony pelvis, with coronal and sagittal reformatting. COMPARISON: [facility], , PELVIS WITHOUT CONTRAST, 02/13/2014, 9:27. FINDINGS: Image quality: Excellent. Bones: Left greater than right sacroiliitis with associated subchondral sclerosis and periarticular osteophyte formation. Periarticular osteophyte formation at the bilateral hip joints. No fracture. No osseous lesion. Lumbosacral fusion hardware is present. There is a small amount of lucency surrounding the L5 transpedicular screws . Soft tissues: Calcification of the left conjoined tendon origin at the ischial tuberosity. Peripherally calcified hypodense focus within the anterior pelvis deep to the umbilicus is present, measuring roughly 40 mm transverse, which is not significantly changed compared to 02/13/2014 allowing for differences in modality IMPRESSION: 1. No evidence of acute fracture. 2. Bilateral sacroiliitis. 3. Possible loosening or infection surrounding the L5 transpedicular screws. Clinical correlation recommended. Dictated by: Lobito Toledo M.D. on 08/11/2021 at 13:47 Approved by: Lobito Toledo M.D. on 08/11/2021 at 13:52
--- NOTE | 2021-08-11 13:09 | DI.CT.S_ITS ---
PROCEDURE: CT CERVICAL SPINE WO CON INDICATIONS: fall with head injury, numbness in leg TECHNIQUE: Noncontrast 3 mm thick sections acquired from the skull base to the T4 level. Sagittal and coronal reformats were then constructed. For radiation dose reduction, the following was used: automated exposure control, adjustment of mA and/or kV according to patient size. COMPARISON: None. FINDINGS: Image quality: Excellent. Bones: No fractures or dislocations. Overall moderate multilevel degenerative changes. Visualized superior ribs are intact. Soft tissues: Prevertebral soft tissues are normal in thickness. No paravertebral hematomas. No apical pneumothoraces. IMPRESSION: No CT evidence of acute traumatic cervical spine injury. Dictated by: Boni Torres M.D. on 08/11/2021 at 13:47 Approved by: Boni Torres M.D. on 08/11/2021 at 13:47
[2021-08-11 13:37] LABS: Add Manual Diff / Slide Review NO; Basophils Absolute Auto 0 /uL (0-100); Basophils Percent Auto 0.5 % (0-2); Eosinophils Absolute Auto 300 /uL (0-450); Eosinophils Percent Auto 2.6 % (2-4); Hemoglobin 12.4 g/dL (12.0-16.0); Lymphocytes Absolute Auto 2900 /uL (1100-4500); Lymphocytes Percent Auto 28.7 % (25-40); Mean Corpuscular HGB Conc 33.6 % (30-36); Mean Corpuscular Hemoglobin 30.4 PG (26-34); Mean Corpuscular Volume 90.4 fL (80-100); Monocytes Absolute Auto 600 /uL (0-900); Monocytes Percent Auto 6.1 % (3-14); Neutrophils Absolute Auto 6400 /uL (1500-7000); Neutrophils Percent Auto 62.1 % (50-75); Platelet Count 278 X10^3/uL (150-400); Red Blood Cell Count 4.09 X10^6/uL (4.0-5.2); Red Cell Distribution Width 13.3 % (11.6-14.8); White Blood Cell Count 10.2 X10^3/uL (4.5-11.0)
--- NOTE | 2021-08-11 13:39 | ED_ITS ---
HPI - Head Injury General Chief complaint: Trauma Stated complaint: Fell and hit head- on blood thinners Time Seen by Provider: 08/11/21 13:09 Source: patient Mode of arrival: Wheelchair History of Present Illness HPI Narrative: 81-year-old female nonsmoker presents with her in the chief complaint of head injury after a ground level fall just prior to arrival. She was walking at home when she tripped and fell backwards landing 1st on her buttocks and then falling back striking her head. She may have had a brief loss of consciousness and is nauseated but denies any vomiting. She had some blurring of vision initially but that has since resolved. She has had no numbness or tingling, she denies any neck pain. She has chronic low back pain and has had prior surgeries. She states that in the aftermath of the fall she has some pain in her left hip going down her left leg. She denies any lower extremity weakness. Immediately after the fall she lost control of her bladder and urinated on herself. Patient activated as a modified trauma Related Data Home Medications Medication Instructions Recorded Confirmed atorvastatin 20 mg tablet 20 mg PO BEDTIME 01/14/19 09/09/20 chlorthalidone 25 mg tablet 25 mg PO DAILY 01/14/19 09/09/20 clonidine HCl 0.1 mg tablet 0.1 mg PO BID 01/14/19 09/09/20 denosumab 60 mg/mL subcutaneous 60 mg SUBCUT [id number] 01/14/19 09/09/20 syringe (Prolia) etanercept (Enbrel) 50 mg SUBCUT QWEEK 01/14/19 09/09/20 fexofenadine 180 mg tablet 180 mg PO DAILY PRN 01/14/19 09/09/20 (Sadie Allergy) multivitamin 1 cap PO QAM 01/14/19 09/09/20 omeprazole 20 mg capsule,delayed 20 mg PO DAILY 01/14/19 09/09/20 release apixaban 5 mg tablet (Eliquis) 5 mg PO BID 04/02/20 09/09/20 calcium carbonate 600 mg calcium 1,200 mg PO DAILY 04/02/20 09/09/20 (1,500 mg) tablet (Calcium) cholecalciferol (vitamin D3) 50 2,000 unit PO BID 04/02/20 09/09/20 mcg (2,000 unit) tablet (Vitamin D3) gabapentin 300 mg capsule 300 mg PO QAM 04/02/20 09/09/20 gabapentin 300 mg capsule 900 mg PO BEDTIME 04/02/20 09/09/20 leflunomide 10 mg tablet 10 mg PO DAILY 04/02/20 09/09/20 Allergies Allergy/AdvReac Type Severity Reaction Status Date / Time atracurium [ATRACURIUM] Allergy Unknown Verified 03/07/21 13:28 mivacurium [MIVACURIUM] Allergy Unknown Verified 03/07/21 13:28 succinylcholine Allergy Unknown Verified 03/07/21 13:28 [SUCCINYLCHOLINE] enalaprilat [From VASOTEC] AdvReac Mild cough Verified 03/07/21 13:28 Review of Systems Review of Systems Narrative: GENERAL: Denies chills, fatigue, malaise, fever, sweats. HEENT: Denies sinus pain, ear pain, sore throat, difficulty swallowing, dizziness. RESPIRATORY: Denies dyspnea, cough, wheezing, hemoptysis, sputum. CARDIOVASCULAR: Denies chest pain, palpitations, orthopnea, edema, GASTROINTESTINAL: Denies nausea, vomiting, abdominal pain, diarrhea, constipation, melena. : See HPI MUSCULOSKELETAL: denies weakness, joint pain, or bony pain SKIN: Denies rash, skin lesions, or other NEUROLOGIC: See HP PSYCHIATRIC: No concerning psychosocial issues. 12 point review of systems is negative except for those stated above Patient History Medical History (Updated 08/11/21 @ 15:13 by Guille Gordon DO) History of hyperlipidemia History of pulmonary embolism Hypertension Uterine prolapse Surgical History H/O: knee surgery History of back surgery History of shoulder surgery No significant past surgical history Family History Mother Hypertension TIA (transient ischemic attack) Social History household members: significant other Smoking Status: Never smoker Smoking Status: Never smoker alcohol intake frequency: a few times a week Substance Use Type: does not use Exam Narrative Exam Narrative: GENERAL: [81 year old patient appears stated age. Well-developed patient, in mild distress. GCS 15 HEAD: Palpable hematoma on right occiput, no bleeding, laceration or evidence of depressed skull fracture EYES: Pupils equal round and reactive. No hyphema Extraocular motions intact. No scleral icterus. No injection or drainage. ENT: Nose without bleeding, purulent drainage. Throat without erythema, tonsillar hypertrophy or exudate. Airway patent. NECK: Trachea midline. Non tender. No step-offs or crepitance CARDIOVASCULAR: Regular rate and rhythm without murmurs, gallops, or rubs. RESPIRATORY: Clear to auscultation. Breath sounds equal bilaterally. No wheezes, rales, or rhonchi. GASTROINTESTINAL: Abdomen soft, non-tender, nondistended. EXTREMITIES: No edema or joint tenderness. BACK: Mild sacral tenderness to palpation with some tenderness over left hip. No saddle anesthesia. Lower extremities 5/5 muscle strength with intact sensation NEURO: AOx3. SKIN: No rash or erythema of visible areas Initial Vital Signs Initial Vital Signs: Vital Signs Temperature 98.8 F 08/11/21 13:05 Pulse Rate 77 08/11/21 13:05 Respiratory Rate 22 08/11/21 13:05 Blood Pressure 194/97 H 08/11/21 13:05 Pulse Oximetry 97 08/11/21 13:05 Course Orders Ordered: ED Orders 08/11/21 13:09 CT cervical spine wo con Stat CT pelvis wo con Stat 08/11/21 13:30 Complete Blood Count AUTO DIFF Stat Prothrombin Time INR Stat 08/11/21 13:40 CT head/brain wo con Stat Consultations Consultation #1: Discussed with patient's neuro surgical team at [facility]. They have been able to review the images which have been electronically transmitted. The presentation and images are most consistent with a chronic issue with the hardware and no immediate interventions needed. They request patient be discharged and they will follow up an outpatient basis. Vital Signs Vital signs: Vital Signs - 8 hr 08/11/21 13:05 08/11/21 15:22 Temperature 98.8 F Pulse Rate 77 60 Respiratory Rate 22 Blood Pressure 194/97 H 179/81 H Pulse Oximetry 97 97 MDM - Head Injury Lab Data Result diagrams: 08/11/21 13:30 Labs: Lab Results 08/11/21 08/11/21 Range/Units 13:30 13:30 WBC 10.2 (4.5-11.0) X10^3/uL RBC 4.09 (4.0-5.2) X10^6/uL Hgb 12.4 (12.0-16.0) g/dL Hct 37.0 (36-46) % MCV 90.4 (80-100) fL MCH 30.4 (26-34) PG MCHC 33.6 (30-36) % RDW 13.3 (11.6-14.8) % Plt Count 278 (150-400) X10^3/uL Neut % (Auto) 62.1 (50-75) % Lymph % (Auto) 28.7 (25-40) % [place] % (Auto) 6.1 (3-14) % Eos % (Auto) 2.6 (2-4) % Baso % (Auto) 0.5 (0-2) % Neut # (Auto) 6400 (9406-5793) /uL Lymph # (Auto) 2900 (5649-6872) /uL [place] # (Auto) 600 (0-900) /uL Eos # (Auto) 300 (0-450) /uL Baso # (Auto) 0 (0-100) /uL PT 13.0 H (10.1-12.7) SECONDS INR 1.2 (0.9-1.3) Imaging Data CT scan - head: Radiologist's Impression: [place] [address] CT Scan Report Signed Patient: Shiela Brady MR#: [id number] : 1940 Acct:[id number] Age/Sex: 81 / F Date of Service: 08/11/21 Loc: ED Accession Number: [id number] ?? Procedure: CT head/brain wo con Ordering Provider: Guille Gordon D.O. PROCEDURE:? CT HEAD/BRAIN WO CON ? INDICATIONS:? fall with head injury, on eliquis ? TECHNIQUE:? Noncontrast 4.5 mm thick angled axial sections acquired from the foramen magnum to the vertex, with coronal and sagittal reformats.? For radiation dose reduction, the following was used:? automated exposure control, adjustment of mA and/or kV according to p atient size.? ? COMPARISON:? None. ? FINDINGS:? Image quality:? Excellent.? ? CSF spaces:? Basal cisterns are patent.? No extra-axial fluid collections.? Ventricles are normal in size and shape.? ? Brain:? No midline shift.? No intracranial masses or hemorrhage.? Roe-white matter interface is normal.? ? Skull and face:? Scalp hematoma at the posterior vertex.? Calvarium and visualized facial bones are intact, without suspicious lesions.? ? Sinuses:? Visualized sinuses and mastoids are clear.? ? IMPRESSION:? No acute intracranial finding.? Small scalp hematoma at the posterior vertex.? ? ? Dictated by: Boni Torres M.D. on 08/11/2021 at 13:45 ? ? Approved by: Boni Torres M.D. on 08/11/2021 at 13:47 ? CT - cervical spine: Radiologist's Impression: [address] [address] [address] Scan Report Signed Patient: Shiela Brady MR#: [id number] : 1940 Acct:[id number] Age/Sex: 81 / F Date of Service: 08/11/21 Loc: ED Accession Number: [id number] ?? Procedure: CT cervical spine wo con Ordering Provider: Guille Gordon D.O. PROCEDURE:? CT CERVICAL SPINE WO CON ? INDICATIONS:? fall with head injury, numbness in leg ? TECHNIQUE:? Noncontrast 3 mm thick sections acquired from the skull base to the T4 level.? Sagittal and coronal reformats were then constructed.? For radiation dose reduction, the following was used:? automated exposure control, adjustment of mA and/or kV according to patient size.? ? COMPARISON:? None. ? FINDINGS:? Image quality:? Excellent.? ? Bones:? No fractures or dislocations.? Overall moderate multilevel degenerative changes.? Visualized superior ribs are intact.? ? Soft tissues:? Prevertebral soft tissues are normal in thickness.? No paravertebral hematomas.? No apical pneumothoraces.? ? ? IMPRESSION:? No CT evidence of acute traumatic cervical spine injury. ? Dictated by: Boni Torres M.D. on 08/11/2021 at 13:47 ? ? Approved by: Boni Torres M.D. on 08/11/2021 at 13:47 ? CT scan - abdomen/pelvis: Radiologist's Impression: [address] [address] [address] Scan Report Signed Patient: Shiela Brady MR#: [id number] : 1940 Acct:[id number] Age/Sex: 81 / F Date of Service: 08/11/21 Loc: ED Accession Number: [id number] ?? Procedure: CT pelvis wo con Ordering Provider: Guille Gordon D.O. PROCEDURE:? CT PEL WO CON ? INDICATIONS:? fall with head injury, left hip ? TECHNIQUE:? Noncontrast 3 mm axial sections acquired through the bony pelvis, with coronal and sagittal reformatting.? ? COMPARISON:? [facility], MR, PELVIS WITHOUT CONTRAST, 02/13/2014, 9:27. ? FINDINGS:? Image quality:? Excellent.? ? Bones:? Left greater than right sacroiliitis with associated subchondral sclerosis and periarticular osteophyte formation.? Periarticular osteophyte formation at the bilateral hip joints.? No fracture.? No osseous lesion.? Lumbosacral fusion hardware is present.? There is a small amount of lucency surrounding the L5 transpedicular screws . ? Soft tissues:? Calcification of the left conjoined tendon origin at the ischial tuberosity.? Peripherally calcified hypodense focus within the anterior pelvis deep to the umbilicus is present, measuring roughly 40 mm transverse, which is not significantly changed compared to 02/13/2014 allowing for differences in modality ? ? IMPRESSION:? 1. No evidence of acute fracture. 2. Bilateral sacroiliitis. 3. Possible loosening or infection surrounding the L5 transpedicular screws.? Clinical correlation recommended.? Dictated by: Lobito Toledo M.D. on 08/11/2021 at 13:47 ? ? Approved by: Lobito Toledo M.D. on 08/11/2021 at 13:52 ? MDM Narrative Medical decision making narrative: Patient with ground level fall suffers mild head injury possible brief loss of consciousness while on Eliquis. Imaging is very reassuring. Patient is at neurologic baseline. CT of pelvis suggest the possible loosening of surgical hardware placed years ago at [facility]. These images have been pushed and there neuro surgical team have reviewed the images and suggest this is chronic. No immediate intervention needed. Patient is tolerating her pain, at her baseline, alert and oriented. She has been given extensive return precautions and this information is shared with and daughter. All questions answered to their apparent satisfaction Discharge Plan Departure Patient Disposition: Home Clinical Impression: Hematoma of occipital region of scalp Instructions: DI for Trauma Activity Restrictions/Additional Instructions: *You have been diagnosed with [fall with scalp hematoma. Your physical exam is very reassuring. As we discussed, the abnormal finding on her pelvic CT is thought to be chronic after being viewed by your neuro surgical team at [facility]. They will reach out to you to discuss and plan for a follow-up *What to do: *Please continue to take your regular medications as directed. [ ] New medication prescriptions sent to your pharmacy: [ ] [ ] New medication written as a paper prescription [ x] No new medications given *Please follow up with your primary care provider in 2-3 days, call for an appointment. Let them know you were seen in the Emergency Department and that we ask that you be seen in follow up. We will electronically transmit a record of today's note if your PCP is in our system *Return to Emergency Department if you should have any new, worsening or concerning symptoms, such as [altered level of consciousness, persistent vomiting, stroke-like symptoms such as numbness, tingling or weakness, loss of b owel or bladder, other bothersome symptoms Prescriptions: No Action clonidine HCl 0.1 mg Tablet 0.1 mg PO BID RF: 0 atorvastatin 20 mg Tablet 20 mg PO BEDTIME RF: 0 chlorthalidone 25 mg Tablet 25 mg PO DAILY RF: 0 fexofenadine [Sadie Allergy] 180 mg Tablet 180 mg PO DAILY PRN (Reason: Allergy Symptoms) RF: 0 omeprazole 20 mg Capsule,Delayed Release(Dr/Ec) 20 mg PO DAILY RF: 0 multivitamin Capsule 1 cap PO QAM RF: 0 Enbrel 25 mg/0.5mL (0.51) Syringe 50 mg SUBCUT QWEEK RF: 0 Prolia 60 mg/mL Syringe 60 mg SUBCUT [id number] RF: 0 leflunomide 10 mg Tablet 10 mg PO DAILY RF: 0 calcium carbonate [Calcium 600] 600 mg calcium (1,500 mg) Tablet 1,200 mg PO DAILY RF: 0 gabapentin 300 mg Capsule 300 mg PO QAM RF: 0 gabapentin 300 mg Capsule 900 mg PO BEDTIME RF: 0 cholecalciferol (vitamin D3) [Vitamin D3] 50 mcg (2,000 unit) Tablet 2,000 unit PO BID RF: 0 Eliquis 5 mg Tablet 5 mg PO BID RF: 0 Referrals: Edilberto Adame MD [Primary Care Provider] -
--- NOTE | 2021-08-11 13:40 | DI.CT.S_ITS ---
PROCEDURE: CT HEAD/BRAIN WO CON INDICATIONS: fall with head injury, on eliquis TECHNIQUE: Noncontrast 4.5 mm thick angled axial sections acquired from the foramen magnum to the vertex, with coronal and sagittal reformats. For radiation dose reduction, the following was used: automated exposure control, adjustment of mA and/or kV according to patient size. COMPARISON: None. FINDINGS: Image quality: Excellent. CSF spaces: Basal cisterns are patent. No extra-axial fluid collections. Ventricles are normal in size and shape. Brain: No midline shift. No intracranial masses or hemorrhage. Roe-white matter interface is normal. Skull and face: Scalp hematoma at the posterior vertex. Calvarium and visualized facial bones are intact, without suspicious lesions. Sinuses: Visualized sinuses and mastoids are clear. IMPRESSION: No acute intracranial finding. Small scalp hematoma at the posterior vertex. Dictated by: Boni Torres M.D. on 08/11/2021 at 13:45 Approved by: Boni Torres M.D. on 08/11/2021 at 13:47
[2021-08-11 13:46] LABS: INR 1.2 (0.9-1.3)
[2021-08-11 15:22] VITALS: BP 179/81; PULSE 60; O2SAT 97
== END 2021-08-11 15:23 | disposition home or self-care (01) ==
PROVIDERS: Emergency Provider Emergency Medicine; PCP Internal Medicine
DX: S00.03XA Contusion of scalp, initial encounter (principal); M25.552 Pain in left hip; R11.0 Nausea; W01.0XXA Fall on same level from slipping, tripping and stumbling without subsequent striking against object, initial encounter; Z79.01 Long term (current) use of anticoagulants
CPT/HCPCS: 36415; 70450; 72125; 72192; 85025; 85610; 99284

== ENCOUNTER → 2022-02-26 11:27 | Outpatient (CLI) | payer MEDICARE, SELFPAY ==
[2022-02-26 12:17] LABS: Add Manual Diff / Slide Review NO; Basophils Absolute Auto 100 /uL (0-100); Basophils Percent Auto 0.7 % (0-2); Eosinophils Absolute Auto 200 /uL (0-450); Eosinophils Percent Auto 2.4 % (2-4); Hematocrit 36.7 % (36-46); Hemoglobin 12.2 g/dL (12.0-16.0); Lymphocytes Absolute Auto 3700 /uL (1100-4500); Lymphocytes Percent Auto 37.3 % (25-40); Mean Corpuscular HGB Conc 33.2 % (30-36); Mean Corpuscular Hemoglobin 29.7 PG (26-34); Mean Corpuscular Volume 89.3 fL (80-100); Monocytes Absolute Auto 700 /uL (0-900); Monocytes Percent Auto 6.8 % (3-14); Neutrophils Absolute Auto 5200 /uL (1500-7000); Neutrophils Percent Auto 52.8 % (50-75); Platelet Count 297 X10^3/uL (150-400); Red Cell Distribution Width 13.3 % (11.6-14.8); White Blood Cell Count 9.9 X10^3/uL (4.5-11.0)
[2022-02-26 13:12] LABS: Alanine Aminotransferase 12 IU/L (<35); Albumin 4.1 g/dL (3.5-5.0); Albumin Globulin Ratio 1.2 (1.0-2.8); Alkaline Phosphatase 73 U/L (38-126); Aspartate Aminotransferase 21 IU/L (14-36); BUN Creatinine Ratio 20.4 (6-22); Bilirubin Total 0.6 mg/dL (0.2-1.3); Blood Urea Nitrogen 22 mg/dL (7-17); Calcium 10.1 mg/dL (8.4-10.2); Carbon Dioxide 31 mmol/L (22-32); Chloride 99 mmol/L (98-107); Estimated Glomerular Filt Rate 52 mL/min (>60); Globulin 3.3 g/dL (1.7-4.1); Glucose 96 mg/dL (80-110); HEMOLYSIS < 15 (0-50); Potassium 3.8 mmol/L (3.4-5.1); Sodium 140 mmol/L (137-145); Total Protein 7.4 g/dL (6.3-8.2)
== END ==
PROVIDERS: PCP Internal Medicine; Referring Provider Internal Medicine Rheumatology; Visit Provider Internal Medicine Rheumatology
DX: M05.9 Rheumatoid arthritis with rheumatoid factor, unspecified (principal); Z79.899 Other long term (current) drug therapy
CPT/HCPCS: 36415; 80053; 85025

== ENCOUNTER → 2022-08-20 10:18 | Outpatient (CLI) | payer MEDICARE, SELFPAY ==
[2022-08-20 12:22] LABS: Alanine Aminotransferase 15 IU/L (<35); Albumin 3.9 g/dL (3.5-5.0); Albumin Globulin Ratio 1.1 (1.0-2.8); Alkaline Phosphatase 60 U/L (38-126); Aspartate Aminotransferase 21 IU/L (14-36); Bilirubin Total 0.5 mg/dL (0.2-1.3); Blood Urea Nitrogen 17 mg/dL (7-17); Calcium 9.4 mg/dL (8.4-10.2); Carbon Dioxide 28 mmol/L (22-32); Chloride 98 mmol/L (98-107); Estimated Glomerular Filt Rate 53 mL/min (>60); Globulin 3.5 g/dL (1.7-4.1); Glucose 100 mg/dL (80-110); HEMOLYSIS < 15 (0-50); Potassium 3.1 mmol/L (3.4-5.1); Sodium 138 mmol/L (137-145); Total Protein 7.4 g/dL (6.3-8.2)
[2022-08-20 12:41] LABS: Adenovirus F 40/41 Not Detected (Not Detect); Astrovirus Not Detected (Not Detect); Campylobacter Not Detected (Not Detect); Clostridium difficile toxin AB Not Detected (Not Detect); Cryptosporidium Not Detected (Not Detect); Cyclospora cayetanensis Not Detected (Not Detect); Entamoeba histolytica Not Detected (Not Detect); Enteroaggregative E.coli Not Detected (Not Detect); Enteropathogenic E.coli Not Detected (Not Detect); Enterotoxigenic E.coli It/st Not Detected (Not Detect); Giardia lamblia Not Detected (Not Detect); Norovirus GI/GII Not Detected (Not Detect); Plesiomonsa shigelloides Not Detected (Not Detect); Rotavirus A Not Detected (Not Detect); Salmonella Not Detected (Not Detect); Sapovirus Not Detected (Not Detect); Shiga-like toxin-prod E.coli Not Detected (Not Detect); Shigella/Enteroinvasive E.coli Not Detected (Not Detect); Vibrio Not Detected (Not Detect); Vibrio cholerae Not Detected (Not Detect); Yersinia enterocolitica Not Detected (Not Detect)
[2022-08-20 14:32] LABS: Add Manual Diff / Slide Review NO; Basophils Absolute Auto 100 /uL (0-100); Basophils Percent Auto 0.8 % (0-2); Eosinophils Absolute Auto 200 /uL (0-450); Eosinophils Percent Auto 2.5 % (2-4); Hematocrit 35.9 % (36-46); Hemoglobin 12.1 g/dL (12.0-16.0); Lymphocytes Absolute Auto 2600 /uL (1100-4500); Lymphocytes Percent Auto 33.6 % (25-40); Mean Corpuscular HGB Conc 33.6 % (30-36); Mean Corpuscular Hemoglobin 30.1 PG (26-34); Mean Corpuscular Volume 89.6 fL (80-100); Monocytes Absolute Auto 500 /uL (0-900); Monocytes Percent Auto 6.2 % (3-14); Neutrophils Absolute Auto 4400 /uL (1500-7000); Neutrophils Percent Auto 56.9 % (50-75); Platelet Count 270 X10^3/uL (150-400); Red Blood Cell Count 4.01 X10^6/uL (4.0-5.2); Red Cell Distribution Width 13.3 % (11.6-14.8); White Blood Cell Count 7.7 X10^3/uL (4.5-11.0)
== END ==
PROVIDERS: Student in an Organized Health Care Education/Training Program; PCP Internal Medicine; Referring Provider Internal Medicine Rheumatology; Visit Provider Internal Medicine Rheumatology
DX: M05.9 Rheumatoid arthritis with rheumatoid factor, unspecified (principal); Z79.899 Other long term (current) drug therapy; R10.9 Unspecified abdominal pain; R19.7 Diarrhea, unspecified
CPT/HCPCS: 36415; 80053; 85025; 87507

== ENCOUNTER → 2023-02-28 13:36 | Outpatient (CLI) | payer MEDICARE, SELFPAY ==
[2023-02-28 14:45] LABS: BUN Creatinine Ratio 18.3 (6-22); Blood Urea Nitrogen 20 mg/dL (7-17); Calcium 9.7 mg/dL (8.4-10.2); Carbon Dioxide 31 mmol/L (22-32); Chloride 99 mmol/L (98-107); Estimated Glomerular Filt Rate 51 mL/min (>60); Glucose 117 mg/dL (80-110); HEMOLYSIS < 15 (0-50); Potassium 3.4 mmol/L (3.4-5.1); Sodium 137 mmol/L (137-145)
== END ==
PROVIDERS: PCP Internal Medicine; Referring Provider Internal Medicine; Visit Provider Internal Medicine
DX: I10 Essential (primary) hypertension (principal)
CPT/HCPCS: 36415; 80048

== ENCOUNTER → 2023-03-15 10:14 | Outpatient (CLI) | payer MEDICARE, SELFPAY ==
[2023-03-15 11:28] LABS: Add Manual Diff / Slide Review NO; Basophils Absolute Auto 100 /uL (0-100); Basophils Percent Auto 0.7 % (0-2); Eosinophils Absolute Auto 300 /uL (0-450); Eosinophils Percent Auto 3.4 % (2-4); Hematocrit 35.5 % (36-46); Lymphocytes Absolute Auto 2800 /uL (1100-4500); Lymphocytes Percent Auto 28.6 % (25-40); Mean Corpuscular HGB Conc 33.6 % (30-36); Mean Corpuscular Hemoglobin 29.9 PG (26-34); Mean Corpuscular Volume 88.8 fL (80-100); Monocytes Absolute Auto 700 /uL (0-900); Monocytes Percent Auto 7.1 % (3-14); Neutrophils Absolute Auto 6000 /uL (1500-7000); Neutrophils Percent Auto 60.2 % (50-75); Platelet Count 271 X10^3/uL (150-400); Red Cell Distribution Width 13.8 % (11.6-14.8); White Blood Cell Count 9.9 X10^3/uL (4.5-11.0)
[2023-03-15 12:14] LABS: Alanine Aminotransferase 13 IU/L (<35); Albumin 4.1 g/dL (3.5-5.0); Albumin Globulin Ratio 1.5 (1.0-2.8); Alkaline Phosphatase 73 U/L (38-126); Aspartate Aminotransferase 18 IU/L (14-36); BUN Creatinine Ratio 20.8 (6-22); Bilirubin Total 0.7 mg/dL (0.2-1.3); Blood Urea Nitrogen 21 mg/dL (7-17); Calcium 9.7 mg/dL (8.4-10.2); Carbon Dioxide 26 mmol/L (22-32); Chloride 100 mmol/L (98-107); Estimated Glomerular Filt Rate 56 mL/min (>60); Globulin 2.8 g/dL (1.7-4.1); Glucose 100 mg/dL (80-110); HEMOLYSIS < 15 (0-50); Potassium 3.9 mmol/L (3.4-5.1); Sodium 136 mmol/L (137-145); Total Protein 6.9 g/dL (6.3-8.2)
[2023-03-15 13:31] LABS: C-Reactive Protein Quant 0.6 mg/dL (<1.0)
== END ==
PROVIDERS: PCP Internal Medicine; Referring Provider Internal Medicine Rheumatology; Visit Provider Internal Medicine Rheumatology
DX: M05.79 Rheumatoid arthritis with rheumatoid factor of multiple sites without organ or systems involvement (principal); Z79.899 Other long term (current) drug therapy
CPT/HCPCS: 36415; 80053; 85025; 86140

== ENCOUNTER → 2023-07-20 09:03 | Outpatient (CLI) | payer MEDICARE, SELFPAY ==
[2023-07-20 11:06] LABS: Add Manual Diff / Slide Review NO; Basophils Absolute Auto 0 /uL (0-100); Basophils Percent Auto 0.5 % (0-2); Eosinophils Absolute Auto 300 /uL (0-450); Eosinophils Percent Auto 3.8 % (2-4); Hematocrit 35.4 % (36-46); Hemoglobin 11.9 g/dL (12.0-16.0); Lymphocytes Absolute Auto 2800 /uL (1100-4500); Mean Corpuscular HGB Conc 33.6 % (30-36); Mean Corpuscular Hemoglobin 30.3 PG (26-34); Mean Corpuscular Volume 90.2 fL (80-100); Monocytes Absolute Auto 500 /uL (0-900); Monocytes Percent Auto 6.8 % (3-14); Neutrophils Absolute Auto 4300 /uL (1500-7000); Neutrophils Percent Auto 53.9 % (50-75); Platelet Count 314 X10^3/uL (150-400); Red Blood Cell Count 3.92 X10^6/uL (4.0-5.2); Red Cell Distribution Width 13.2 % (11.6-14.8)
[2023-07-20 11:30] LABS: Alanine Aminotransferase 15 IU/L (<35); Albumin 3.9 g/dL (3.5-5.0); Albumin Globulin Ratio 1.3 (1.0-2.8); Alkaline Phosphatase 59 U/L (38-126); Aspartate Aminotransferase 20 IU/L (14-36); BUN Creatinine Ratio 30.4 (6-22); Bilirubin Total 0.6 mg/dL (0.2-1.3); Blood Urea Nitrogen 31 mg/dL (7-17); C-Reactive Protein Quant < 0.5 mg/dL (<1.0); Calcium 9.9 mg/dL (8.4-10.2); Carbon Dioxide 27 mmol/L (22-32); Chloride 102 mmol/L (98-107); Estimated Glomerular Filt Rate 55 mL/min (>60); Globulin 3.1 g/dL (1.7-4.1); Glucose 109 mg/dL (80-110); HEMOLYSIS < 15 (0-50); Potassium 3.7 mmol/L (3.4-5.1); Sodium 137 mmol/L (137-145)
== END ==
PROVIDERS: PCP Internal Medicine; Referring Provider Internal Medicine Rheumatology; Visit Provider Internal Medicine Rheumatology
DX: Z79.899 Other long term (current) drug therapy (principal)
CPT/HCPCS: 36415; 80053; 85025; 86140

== ENCOUNTER → 2023-09-08 11:14 | Outpatient (CLI) | payer MEDICARE, SELFPAY ==
[2023-09-08 12:10] LABS: Influenza A - CEPHEID Flu A NEGATIVE (NEGATIVE); Influenza B - CEPHEID Flu B NEGATIVE (NEGATIVE); Respiratory Syncytial Virus Negative (Negative)
[2023-09-08 12:11] LABS: COVID-19 CEPHEID 4-PLEX PCR Negative (Negative)
== END ==
PROVIDERS: PCP Internal Medicine; Visit Provider Nurse Practitioner Family
DX: R05.1 Acute cough (principal)
CPT/HCPCS: 0241U

== ENCOUNTER → 2023-09-19 12:48 | Outpatient (CLI) | payer MEDICARE, SELFPAY ==
--- NOTE | 2023-09-19 | DI.MG.S_ITS ---
BILATERAL DIGITAL SCREENING MAMMOGRAM 3D/2D WITH CAD WITH AUGMENTATION: 09/19/2023 CLINICAL: Routine screening. Family history of breast cancer. Comparison is made to exams dated: 10/10/2020 mammogram, 09/20/2019 mammogram, and 09/02/2017 mammogram - [facility]. There are scattered areas of fibroglandular density in both breasts (category b / 25%-50% glandular tissue). Current study was also evaluated with a Computer Aided Detection (CAD) system. Bilateral breast implants are stable. No significant masses, calcifications, or other findings are seen in either breast. IMPRESSION: BENIGN There is no mammographic evidence of malignancy. A 1 year screening mammogram is recommended. Based on the Tyrer Cuzick model (a risk assessment model) the patient's lifetime risk is 0.6% and her 10 year risk is 0.0%. According to the ACR, ACS, and NCCN guidelines, an annual breast MRI exam along with mammogram is recommended if the patient's lifetime risk is 20% or greater. This exam was interpreted at Station ID: [id number]. NOTE: For mammograms, a report in lay terms will be sent to the patient. Approximately 15% of breast malignancies will not be visualized mammographically. In the management of a palpable breast mass, a negative mammogram must not discourage biopsy of a clinically suspicious lesion. Electronically Signed By: Melvi Hunter M.D., PH.D lucius/sylvia:09/19/2023 16:24:26 letter sent: Normal Exam ACR BI-RADS Category 2: Benign Finding(s) 3342F
== END ==
PROVIDERS: PCP Internal Medicine; Referring Provider Internal Medicine; Visit Provider Internal Medicine
DX: Z12.31 Encounter for screening mammogram for malignant neoplasm of breast (principal); Z80.3 Family history of malignant neoplasm of breast
CPT/HCPCS: 77063; 77067

== ENCOUNTER → 2023-11-23 10:44 | Outpatient (CLI) | payer MEDICARE, SELFPAY ==
--- NOTE | 2023-11-23 10:45 | DI.RAD.S_ITS ---
PROCEDURE: XR LUMBAR SPINE MIN 4V INDICATIONS: LOW BACK PAIN TECHNIQUE: 5 views of the lumbar spine were acquired, including bilateral oblique views. COMPARISON: MR, MR LUMBAR SPINE WO CON, 04/02/2020, 15:14. MR, L-SPINE W&WO CONTRAST, 03/08/2014, 7:53. [facility], CR, L-SPINE 2-3 VIEWS, 11/27/2013, 8:32. FINDINGS: Bones: 5 nonrib-bearing vertebrae are present. There is leftward scoliotic curvature. Fusion is present from L3 through L5. Hardware is intact without hardware fracture or periprosthetic lucency to suggest loosening. Alignment is stable. No vertebral body compression fractures. No suspicious bony lesions. Multilevel degenerative disc and foraminal narrowing are present. Moderate arthritic narrowing is present within the hips bilaterally Soft tissues: Overlying bowel gas pattern is normal. No suspicious soft tissue calcifications. Inferior vena cava filter is present. Oblique images: No pars defects. IMPRESSION: Extensive degenerative and postsurgical changes. Dictated by: Bryanna Hernadez M.D. on 11/23/2023 at 16:43 Approved by: Bryanna Hernadez M.D. on 11/23/2023 at 16:44
== END ==
PROVIDERS: PCP Internal Medicine; Referring Provider Anesthesiology; Visit Provider Anesthesiology
DX: M54.9 Dorsalgia, unspecified (principal); G89.29 Other chronic pain; Z98.1 Arthrodesis status
CPT/HCPCS: 72110

== ENCOUNTER → 2024-04-26 09:39 | Outpatient (CLI) | payer MEDICARE, SELFPAY ==
[2024-04-26 11:16] LABS: BUN Creatinine Ratio 20.2 (6-22); Blood Urea Nitrogen 23 mg/dL (7-17); Calcium 9.6 mg/dL (8.4-10.2); Carbon Dioxide 29 mmol/L (22-32); Chloride 105 mmol/L (98-107); Cholesterol 170 mg/dL (140-199); Estimated Glomerular Filt Rate 48 mL/min (>60); Glucose 102 mg/dL (80-110); HDL Cholesterol 47 mg/dL (40-60); HEMOLYSIS < 15 (0-50); LDL Cholesterol Calculated 75 mg/dL (<100); Potassium 4.1 mmol/L (3.4-5.1); Sodium 139 mmol/L (137-145); Triglycerides 238 mg/dL (35-150)
== END ==
LOC: LAB 09:40
PROVIDERS: PCP Internal Medicine; Referring Provider Internal Medicine; Visit Provider Internal Medicine
DX: E78.2 Mixed hyperlipidemia (principal); I10 Essential (primary) hypertension
CPT/HCPCS: 36415; 80048; 80061

== ENCOUNTER → 2024-05-09 15:20 | Outpatient (CLI) | payer MEDICARE, SELFPAY ==
[2024-05-09 17:18] LABS: Add Manual Diff / Slide Review NO; Basophils Absolute Auto 0 /uL (0-100); Basophils Percent Auto 0.5 % (0-2); Eosinophils Absolute Auto 400 /uL (0-450); Eosinophils Percent Auto 4.4 % (2-4); Hemoglobin 11.6 g/dL (12.0-16.0); Lymphocytes Absolute Auto 3400 /uL (1100-4500); Lymphocytes Percent Auto 36.2 % (25-40); Mean Corpuscular HGB Conc 34.1 % (30-36); Mean Corpuscular Hemoglobin 31.2 PG (26-34); Mean Corpuscular Volume 91.5 fL (80-100); Monocytes Absolute Auto 700 /uL (0-900); Monocytes Percent Auto 7.8 % (3-14); Neutrophils Absolute Auto 4800 /uL (1500-7000); Neutrophils Percent Auto 51.1 % (50-75); Platelet Count 319 X10^3/uL (150-400); Red Blood Cell Count 3.72 X10^6/uL (4.0-5.2); Red Cell Distribution Width 13.2 % (11.6-14.8); White Blood Cell Count 9.3 X10^3/uL (4.5-11.0)
[2024-05-09 17:40] LABS: Alanine Aminotransferase 16 IU/L (<35); Albumin 4.3 g/dL (3.5-5.0); Albumin Globulin Ratio 1.2 (1.0-2.8); Alkaline Phosphatase 65 U/L (38-126); Aspartate Aminotransferase 24 IU/L (14-36); BUN Creatinine Ratio 22.8 (6-22); Bilirubin Total 0.6 mg/dL (0.2-1.3); Blood Urea Nitrogen 28 mg/dL (7-17); C-Reactive Protein Quant < 0.5 mg/dL (<1.0); Calcium 9.4 mg/dL (8.4-10.2); Carbon Dioxide 27 mmol/L (22-32); Chloride 107 mmol/L (98-107); Estimated Glomerular Filt Rate 44 mL/min (>60); Globulin 3.5 g/dL (1.7-4.1); Glucose 115 mg/dL (80-110); HEMOLYSIS < 15 (0-50); Potassium 3.5 mmol/L (3.4-5.1); Sodium 141 mmol/L (137-145); Total Protein 7.8 g/dL (6.3-8.2)
== END ==
PROVIDERS: PCP Internal Medicine; Referring Provider Internal Medicine Rheumatology; Visit Provider Internal Medicine Rheumatology
DX: M05.79 Rheumatoid arthritis with rheumatoid factor of multiple sites without organ or systems involvement (principal); Z79.899 Other long term (current) drug therapy
CPT/HCPCS: 36415; 80053; 85025; 86140

== ENCOUNTER → 2024-05-23 08:32 | Outpatient (CLI) | payer MEDICARE, SELFPAY ==
[2024-05-25 14:13] LABS: Fecal Immunochemical Test Negative (Negative)
== END ==
PROVIDERS: PCP Internal Medicine; Referring Provider Internal Medicine; Visit Provider Internal Medicine
DX: Z80.0 Family history of malignant neoplasm of digestive organs (principal); Z86.010 Personal history of colon polyps
CPT/HCPCS: 82274

== ENCOUNTER 2024-05-31 12:33 | Observation (INO) | payer MEDICARE, SELFPAY ==
[2024-05-31] VITALS (12 sets, daily range): BP systolic 143–172; BP diastolic 65–72; PULSE 56–71; RESP 15–29; TEMP 36.3–36.5; O2SAT 91–96; BMI 27.8; BMI 28.0
--- NOTE | 2024-05-31 12:38 | DI.CT.S_ITS ---
PROCEDURE: CT HEAD/BRAIN WO CON INDICATIONS: Aphasia on blood thinners TECHNIQUE: Noncontrast 4.5 mm thick angled axial sections acquired from the foramen magnum to the vertex, with coronal and sagittal reformats. For radiation dose reduction, the following was used: automated exposure control, adjustment of mA and/or kV according to patient size. COMPARISON: [facility], MR, MR STROKE, 04/02/2020, 10:33. [facility], CT, CT ANGIO HEAD AND NECK, 05/31/2024, 12:40. [facility], CT, CT HEAD/BRAIN WO CON, 08/11/2021, 13:18. FINDINGS: Image quality: Diagnostic. CSF spaces: Basal cisterns are patent. No extra-axial fluid collections. The ventricles are symmetric in size and shape. Brain: No intracranial bleeds or masses. There is cerebral volume loss for age, with resultant ventricular and sulcal prominence. There are periventricular and deep white matter chronic small vessel ischemic changes. There is intracranial internal carotid artery atherosclerosis. Skull and face: Calvarium and visualized facial bones appear intact, without suspicious lesions. Sinuses: Visualized sinuses and mastoids are clear. IMPRESSION: No acute intracranial hemorrhage is seen. No acute intracranial pathology. Dictated by: Vito Johnson M.D. on 05/31/2024 at 12:03 Approved by: Vito Johnson M.D. on 05/31/2024 at 12:05
--- NOTE | 2024-05-31 12:38 | DI.CT.S_ITS ---
PROCEDURE: CT ANGIO HEAD AND NECK INDICATIONS: Aphasia on blood thinners TECHNIQUE: After the administration of intravenous contrast, 1 mm thick sections acquired from the aortic arch through the [place] of [place]. 3-dimensional vtuhrcp-waptmafru-eddnbwavbi (MIP) and/or volume rendering reformats were acquired of the central intracranial vasculature and neck separately. For radiation dose reduction, the following was used: automated exposure control, adjustment of mA and/or kV according to patient size. COMPARISON: [facility], CT, CT HEAD/BRAIN WO CON, 05/31/2024, 12:40. [facility], MR, MR STROKE, 04/02/2020, 10:33. FINDINGS: Image quality: Limited by bolus timing, with venous contamination. There is streak artifact seen through the level of the shoulders. BRAIN: CSF spaces: Ventricles are normal in size and shape. Basal cisterns are patent. No extra-axial fluid collections. Brain: No significant abnormality of the brain can be seen. Skull and face: Calvarium and facial bones appear intact, without suspicious lesions. Orbits appear normal. Sinuses: Sinuses and mastoids are clear. HEAD CT ANGIOGRAPHY: Anterior circulation: Intracranial internal carotid arteries demonstrate atherosclerotic irregularity and calcification, with 50% narrowing seen on each side.. There is a diminutive left A1 segment, with a corresponding robust right A1 segment. This is considered to be a normal developmental variant of the [place] of [place], of typically no clinical consequence. The flow within the paired anterior cerebral arteries is otherwise normal and symmetric. The flow within the middle cerebral arteries is normal and symmetric. The anterior communicating artery is seen. No aneurysms are seen. Posterior circulation: With 50% narrowing can be seen involving the right V4 segment. Visualized portions of the vertebral arteries otherwise demonstrate normal caliber, and join to form a normal appearing basilar artery. There is a prominent left posterior communicating artery seen, with an accompanying diminutive left P1 segment. This is attributed to a type origin of the right posterior cerebral artery, which is considered to be a normal developmental variant of typically no clinical consequence. The flow within the posterior cerebral arteries is normal and symmetric. No aneurysms are seen. NECK CT ANGIOGRAPHY: Carotid system: The great vessels demonstrate a conventional anatomy as they arise from the aortic arch. The origins of the common carotid arteries appear patent. The common carotid arteries demonstrate normal caliber and courses. The bifurcation regions demonstrate atherosclerotic irregularity, yet without a hemodynamically significant stenosis. The more distal internal carotid arteries demonstrate normal course and caliber. Posterior circulation: The origins of the vertebral arteries both appear widely patent. The more superior extracranial portions of both vertebral arteries also demonstrate normal courses and calibers. The left vertebral artery is dominant to the right. Soft tissues: Visualized neck soft tissues demonstrate no suspicious abnormalities. Bones: No suspicious bony lesions. Visualized cervical spine appears normally aligned. At least moderate cervical spine degenerative change can be seen. IMPRESSION: No significant intracranial arterial abnormality is seen. Focal calcification with 50% narrowing is seen involving the right V4 segment. No significant carotid stenosis is seen. Additional findings: Afxyto-md-Osllbb developmental anomalies At least moderate cervical spine degenerative change Any quantitative measurements of stenosis were performed using NASCET criteria. Dictated by: Vito Johnson M.D. on 05/31/2024 at 12:05 Approved by: Vito Johnson M.D. on 05/31/2024 at 12:08
[2024-05-31 12:48] LABS: Add Manual Diff / Slide Review NO; Basophils Absolute Auto 100 /uL (0-100); Basophils Percent Auto 0.6 % (0-2); Eosinophils Absolute Auto 900 /uL (0-450); Hematocrit 34.3 % (36-46); Hemoglobin 11.5 g/dL (12.0-16.0); Lymphocytes Absolute Auto 3200 /uL (1100-4500); Lymphocytes Percent Auto 29.1 % (25-40); Mean Corpuscular HGB Conc 33.4 % (30-36); Mean Corpuscular Hemoglobin 30.4 PG (26-34); Monocytes Absolute Auto 900 /uL (0-900); Monocytes Percent Auto 8.3 % (3-14); Neutrophils Absolute Auto 5900 /uL (1500-7000); Platelet Count 292 X10^3/uL (150-400); Red Blood Cell Count 3.77 X10^6/uL (4.0-5.2); Red Cell Distribution Width 13.1 % (11.6-14.8); White Blood Cell Count 10.8 X10^3/uL (4.5-11.0)
[2024-05-31 12:55] LABS: INR 1.3 (0.9-1.3); Prothrombin Time 14.4 SECONDS (9.4-12.5)
--- NOTE | 2024-05-31 12:57 | EKG_ITS ---
[address] [place] [id number] Test Date: 2024-05-31 Pat Name: Shiela Brady Department: Room: Gender: Female Running Rigger: SCOT : 1940 Requested By: Order Number: [id number] Reading MD: Robert Heath MD Measurements Intervals [place] Rate: 69 P: 49 NV: 226 QRS: -10 QRSD: 98 T: 134 QT: 380 QTc: 407 Interpretive Statements Sinus rhythm with 1st degree AV block Moderate voltage criteria for LVH, may be normal variant ( R in aVL , Ti product ) Anteroseptal infarct , age undetermined T wave abnormality, consider lateral ischemia Electronically Signed On 05-31-2024 14:32:50 PDT by Robert Heath MD
[2024-05-31 12:58] LABS: PTT Partial Thromboplastin Tim 39 SECONDS (25.1-36.5)
[2024-05-31 13:01] LABS: Creatine Kinase 212 U/L (30-135)
[2024-05-31 13:03] LABS: Alanine Aminotransferase 17 IU/L (<35); Albumin 4.4 g/dL (3.5-5.0); Albumin Globulin Ratio 1.4 (1.0-2.8); Alkaline Phosphatase 66 U/L (38-126); Aspartate Aminotransferase 28 IU/L (14-36); BUN Creatinine Ratio 34.4 (6-22); Bilirubin Total 0.6 mg/dL (0.2-1.3); Blood Urea Nitrogen 43 mg/dL (7-17); Calcium 9.6 mg/dL (8.4-10.2); Carbon Dioxide 22 mmol/L (22-32); Chloride 99 mmol/L (98-107); Estimated Glomerular Filt Rate 43 mL/min (>60); Ethanol (ETOH) < 10 mg/dL; Globulin 3.2 g/dL (1.7-4.1); Glucose 104 mg/dL (80-110); HEMOLYSIS < 15 (0-50); Lipase 218 U/L (23-300); Magnesium 1.7 mg/dL (1.6-2.3); Potassium 4.1 mmol/L (3.4-5.1); Sodium 131 mmol/L (137-145); Total Protein 7.6 g/dL (6.3-8.2)
--- NOTE | 2024-05-31 13:07 | PC.NURSE ---
Patient can tell touch in her lower limbs but sensation is decreased in her right lower leg.
[2024-05-31 13:13] LABS: Troponin I < 0.012 ng/mL (0.01-0.034)
--- NOTE | 2024-05-31 13:14 | ED.NEUROSD ---
HPI - Neuro Symptoms/Deficit General Chief Complaint: Neuro Symptoms/Deficit Stated Complaint: Stroke Time Seen by Provider: 05/31/24 12:38 Source: patient, family and EMS Mode of arrival: EMS Limitations: no limitations History of Present Illness HPI Narrative: Patient is an 84-year-old female. Is on Eliquis secondary to history of DVTs. Has a history of rheumatoid arthritis in his on medications for this. Brought in for evaluation of an event that occurred this morning. States she was sitting at her computer. She started noticing some vague symptoms to include some vision changes and a slight headache. She has a history of ocular migraines but this felt different than that. She then stated that she was having problems saying words. Unsure as to how long the symptoms lasted but it could have been up to a couple hours. Other than a ?fullness? in her head she states that all of her symptoms have resolved. During the event she did not have any numbness or tingling in her upper and lower extremities. No chest pain, shortness of breath, abdominal pain. She has taken all of her medications as directed. On Anticoagulants: Yes (eloquis) Related Data Home Medications Medication Instructions Recorded Confirmed fexofenadine 180 mg tablet 180 mg PO DAILY PRN Allergy 01/14/19 04/04/24 (Sadie Allergy) Symptoms multivitamin 1 cap PO QAM 01/14/19 04/04/24 calcium carbonate (Calcium 600) 1,200 mg PO DAILY 04/02/20 04/04/24 cholecalciferol (vitamin D3) 50 2,000 unit PO BID 04/02/20 04/04/24 mcg (2,000 unit) tablet (Vitamin D3) etanercept 50 mg/mL (1 mL) 50 mg SUBCUT QWEEK 03/22/22 04/04/24 subcutaneous pen injector (Enbrel SureClick) leflunomide 20 mg tablet 20 mg PO DAILY 03/22/22 04/04/24 Previous Rx's Medication Instructions Recorded Disabled Parking Permit 1 ea Not Applicable DAILY #1 ea 05/27/23 potassium chloride 20 mEq 20 meq PO 3XW #40 tabs 09/26/23 tablet,extended release chlorthalidone 25 mg tablet 25 mg PO DAILY #90 tabs 01/30/24 clonidine HCl 0.1 mg tablet 0.1 mg PO BID #180 tabs 01/30/24 gabapentin 300 mg capsule 300 mg PO .COMPLEX #360 caps 01/30/24 omeprazole 20 mg capsule,delayed 20 mg PO DAILY #90 caps 01/30/24 release felodipine 10 mg tablet,extended 10 mg PO DAILY #90 tabs 02/27/24 release 24 hr apixaban 5 mg tablet (Eliquis) 5 mg PO BID #180 tabs 03/06/24 losartan 100 mg tablet 100 mg PO DAILY #90 tabs 03/28/24 atorvastatin 20 mg tablet 20 mg PO BEDTIME #90 tabs 04/27/24 Allergies Allergy/AdvReac Type Severity Reaction Status Date / Time atracurium [ATRACURIUM] Allergy Unknown Verified 04/04/24 07:51 mivacurium [MIVACURIUM] Allergy Unknown Verified 04/04/24 07:51 succinylcholine Allergy Unknown Verified 04/04/24 07:51 [SUCCINYLCHOLINE] enalaprilat [From VASOTEC] AdvReac Mild cough Verified 04/04/24 07:51 Review of Systems Review of Systems ROS Unobtainable: All systems reviewed & are unremarkable except as noted in HPI and below Hematologic/Lymphatic On Anticoagulants: Yes (eloquis) Patient History Medical History Stage 3a chronic kidney disease (CKD) Family history of colon cancer in father History of colonic polyps GERD without esophagitis Mixed hyperlipidemia Essential hypertension Chronic anticoagulation History of pulmonary embolism Carpal tunnel syndrome Vision disorder Hearing loss Rheumatoid arthritis (~2001) Osteoarthritis Sleep apnea (~2009) Scoliosis Osteoporosis (~2019) Chronic back pain Mumps Measles Chicken pox Cataracts, bilateral (~2019) Deep vein thrombosis (~2009) Skin cancer Uterine prolapse (~2019) History of hyperlipidemia History of pulmonary embolism Hypertension Surgical History Status post lumbar spinal fusion Anesthesia History of hysterectomy (~2020) Amputated toe of right foot (~2020) History of breast augmentation History of cholecystectomy History of hand surgery Yeboah's neuroma Melanoma (~1989) History of shoulder surgery (~2008) H/O: knee surgery History of back surgery No significant past surgical history Family History Mother Hypertension TIA (transient ischemic attack) Social History details: Partner (Hugo), grown children household members: significant other Smoking Status: Never smoker Smoking Status: Never smoker alcohol intake frequency: a few times a week Substance Use Type: does not use Exam Initial Vital Signs Initial Vital Signs: Vital Signs Pulse Rate 71 05/31/24 12:51 Respiratory Rate 15 05/31/24 12:51 Pulse Oximetry 93 05/31/24 12:51 Const General: cooperative, comfortable and No ill appearing HENMT Head: normal to inspection and normocephalic Resp Effort & Inspection: normal respiratory effort Auscultation: clear to auscultation bilaterally Cardio Rate: regular rate Rhythm: regular rhythm GI Inspection: normal to inspection Skin General: no rashes or lesions noted Neuro General: patient alert, patient awake, patient oriented x3 and moves all extremities Cranial Nerves: CN's II-XI intact bilaterally Speech: speech normal Extrem General: normal to inspection and capillary refill normal Scores GCS [place] coma scale eye opening: Spontaneous [place] coma scale verbal response: Orientated [place] coma scale motor response: Obey commands [place] coma scale total score: 15 NIH Stroke Scale Level of Conciousness: Alert, keenly responsive Ask month/age: Answers both questions correctly. Open/close eyes, close hand: Performs both tasks correctly Best gaze horizontal: Normal Visual weems: No visual loss Facial palsy: Normal symetrical movement Left arm drift: No drift for full 10 sec Right arm drift: No drift for full 10 sec Left leg drift: No drift for full 5 sec Right leg drift: Drifts down, not to bed Limb ataxia: Present in one limb Sensory on face/arms/legs: Mild to moderate sensory loss, can tell touch Best language: No aphasia, normal Dysarthria: Normal Extinction or inattention: No abnormality Total NIH Stroke scale score: 3 Course Orders Ordered: ED Orders 05/31/24 12:37 Complete Blood Count AUTO DIFF Stat Comprehensive Metabolic Panel Stat Ethanol (ETOH) Stat Lipase Stat Magnesium Stat PTT Partial Thromboplastin Scar Stat Prothrombin Time INR Stat Troponin & CK Cardiac Panel Stat 05/31/24 12:38 CT angio head and neck Stat CT head/brain wo con Stat 05/31/24 12:40 EKG-12 Lead Stat Discontinued Medications Aspirin (Aspirin 81 Mg Chew Tab) 324 mg PO NOW ONE Stop: 05/31/24 13:40 Last Admin: 05/31/24 14:13 Dose: 324 mg Documented By: JUDY Vital Signs Vital signs: Vital Signs - 8 hr 05/31/24 12:51 05/31/24 12:52 05/31/24 12:52 Pulse Rate 71 68 Respiratory Rate 15 19 Blood Pressure 164/70 H Pulse Oximetry 93 95 Oxygen Delivery Method 05/31/24 13:00 05/31/24 13:00 05/31/24 13:01 Pulse Rate 66 69 Respiratory Rate 18 24 Blood Pressure 152/68 H 164/70 H Pulse Oximetry 94 95 Oxygen Delivery Method Room Air 05/31/24 13:30 05/31/24 13:30 Pulse Rate 62 Respiratory Rate 17 Blood Pressure 143/65 H Pulse Oximetry 91 Oxygen Delivery Method MDM - Neuro Symptoms/Deficit Lab Data Attestation: I reviewed the patient's lab results. 05/31/24 12:37 05/31/24 12:37 Labs: Lab Results 05/31/24 Range/Units 12:37 WBC 10.8 (4.5-11.0) X10^3/uL RBC 3.77 L (4.0-5.2) X10^6/uL Hgb 11.5 L (12.0-16.0) g/dL Hct 34.3 L (36-46) % MCV 91.0 (80-100) fL MCH 30.4 (26-34) PG MCHC 33.4 (30-36) % RDW 13.1 (11.6-14.8) % Plt Count 292 (150-400) X10^3/uL Neut % (Auto) 54.0 (50-75) % Lymph % (Auto) 29.1 (25-40) % [place] % (Auto) 8.3 (3-14) % Eos % (Auto) 8.0 H (2-4) % Baso % (Auto) 0.6 (0-2) % Neut # (Auto) 5900 (5880-3014) /uL Lymph # (Auto) 3200 (8791-8038) /uL [place] # (Auto) 900 (0-900) /uL Eos # (Auto) 900 H (0-450) /uL Baso # (Auto) 100 (0-100) /uL PT 14.4 H (9.4-12.5) SECONDS INR 1.3 (0.9-1.3) APTT 39 H (25.1-36.5) SECONDS Sodium 131 L (137-145) mmol/L Potassium 4.1 (3.4-5.1) mmol/L Chloride 99 (98-107) mmol/L Carbon Dioxide 22 (22-32) mmol/L BUN 43 H (7-17) mg/dL Creatinine 1.25 H (0.52-1.04) mg/dL Estimated GFR 43 L (>60) mL/min BUN/Creatinine Ratio 34.4 H (6-22) Glucose 104 (80-110) mg/dL Calcium 9.6 (8.4-10.2) mg/dL Magnesium 1.7 (1.6-2.3) mg/dL Total Bilirubin 0.6 (0.2-1.3) mg/dL AST 28 (14-36) IU/L ALT 17 (<35) IU/L Alkaline Phosphatase 66 (38-126) U/L Total Creatine Kinase 212 H (30-135) U/L Troponin I < 0.012 (0.01-0.034) ng/mL Total Protein 7.6 (6.3-8.2) g/dL Albumin 4.4 (3.5-5.0) g/dL Globulin 3.2 (1.7-4.1) g/dL Albumin/Globulin Ratio 1.4 (1.0-2.8) Lipase 218 (23-300) U/L Ethyl Alcohol < 10 ( - 10) mg/dL Point of Care Testing Glucose POC 100 Imaging Data CTA - brain/neck: Radiologist's Impression: PROCEDURE: CT ANGIO HEAD AND NECK INDICATIONS: Aphasia on blood thinners TECHNIQUE: After the administration of intravenous contrast, 1 mm thick sections acquired from the aortic arch through the [place]. 3-dimensional viulnuq-jonbswxev-agifmwfaud (MIP) and/or volume rendering reformats were acquired of the central intracranial vasculature and neck separately. For radiation dose reduction, the following was used: automated exposure control, adjustment of mA and/or kV according to patient size. COMPARISON: [facility], CT, CT HEAD/BRAIN WO CON, 05/31/2024, 12:40. [facility], MR, MR STROKE, 04/02/2020, 10:33. FINDINGS: Image quality: Limited by bolus timing, with venous contamination. There is streak artifact seen through the level of the shoulders. BRAIN: CSF spaces: Ventricles are normal in size and shape. Basal cisterns are patent. No extra-axial fluid collections. Brain: No significant abnormality of the brain can be seen. Skull and face: Calvarium and facial bones appear intact, without suspicious lesions. Orbits appear normal. Sinuses: Sinuses and mastoids are clear. HEAD CT ANGIOGRAPHY: Anterior circulation: Intracranial internal carotid arteries demonstrate atherosclerotic irregularity and calcification, with 50% narrowing seen on each side.. There is a diminutive left A1 segment, with a corresponding robust right A1 segment. This is considered to be a normal developmental variant of the [place], of typically no clinical consequence. The flow within the paired anterior cerebral arteries is otherwise normal and symmetric. The flow within the middle cerebral arteries is normal and symmetric. The anterior communicating artery is seen. No aneurysms are seen. Posterior circulation: With 50% narrowing can be seen involving the right V4 segment. Visualized portions of the vertebral arteries otherwise demonstrate normal caliber, and join to form a normal appearing basilar artery. There is a prominent left posterior communicating artery seen, with an accompanying diminutive left P1 segment. This is attributed to a type origin of the right posterior cerebral artery, which is considered to be a normal developmental variant of typically no clinical consequence. The flow within the posterior cerebral arteries is normal and symmetric. No aneurysms are seen. NECK CT ANGIOGRAPHY: Carotid system: The great vessels demonstrate a conventional anatomy as they arise from the aortic arch. The origins of the common carotid arteries appear patent. The common carotid arteries demonstrate normal caliber and courses. The bifurcation regions demonstrate atherosclerotic irregularity, yet without a hemodynamically significant stenosis. The more distal internal carotid arteries demonstrate normal course and caliber. Posterior circulation: The origins of the vertebral arteries both appear widely patent. The more superior extracranial portions of both vertebral arteries also demonstrate normal courses and calibers. The left vertebral artery is dominant to the right. Soft tissues: Visualized neck soft tissues demonstrate no suspicious abnormalities. Bones: No suspicious bony lesions. Visualized cervical spine appears normally aligned. At least moderate cervical spine degenerative change can be seen. IMPRESSION: No significant intracranial arterial abnormality is seen. Focal calcification with 50% narrowing is seen involving the right V4 segment. No significant carotid stenosis is seen. Additional findings: Nvfchd-[id number] developmental anomalies At least moderate cervical spine degenerative change CT scan - head: Radiologist's Impression: PROCEDURE: CT HEAD/BRAIN WO CON INDICATIONS: Aphasia on blood thinners TECHNIQUE: Noncontrast 4.5 mm thick angled axial sections acquired from the foramen magnum to the vertex, with coronal and sagittal reformats. For radiation dose reduction, the following was used: automated exposure control, adjustment of mA and/or kV according to patient size. COMPARISON: [facility], MR, MR STROKE, 04/02/2020, 10:33. [facility], CT, CT ANGIO HEAD AND NECK, 05/31/2024, 12:40. [facility], CT, CT HEAD/BRAIN WO CON, 08/11/2021, 13:18. FINDINGS: Image quality: Diagnostic. CSF spaces: Basal cisterns are patent. No extra-axial fluid collections. The ventricles are symmetric in size and shape. Brain: No intracranial bleeds or masses. There is cerebral volume loss for age, with resultant ventricular and sulcal prominence. There are periventricular and deep white matter chronic small vessel ischemic changes. There is intracranial internal carotid artery atherosclerosis. Skull and face: Calvarium and visualized facial bones appear intact, without suspicious lesions. Sinuses: Visualized sinuses and mastoids are clear. IMPRESSION: No acute intracranial hemorrhage is seen. No acute intracranial pathology. ECG Data Attestation: I personally reviewed and interpreted this ECG as follows: Interpretation: Sinus rhythm Ventricular rate is 69 First-degree AV block MA interval 2-6 milliseconds Normal QRS Nonspecific ST T wave changes MDM Narrative Medical decision making narrative: Patient reports that her symptoms have vastly improved. Has a NIH score of but that is for subjective tingling to her right leg and difficulty holding her right leg up against gravity. The difficulty holding her leg up could be chronic for her as she does have chronic low back pain and right hip pain. The dysarthria what she explained earlier has resolved. Head CT and CTA of the head and neck are unremarkable. She was on anticoagulation secondary to history of a DVT also pulmonary embolism. Symptoms would be consistent with a TIA. Discussed the case with Dr. Guzman who is the hospitalist on-call who will admit for further evaluation and treatment. Discussed the need for admission with the patient. She expressed understanding and agreement as well. Discharge Plan Departure Patient Disposition: Home Clinical Impression: Brain TIA
--- NOTE | 2024-05-31 13:49 | PM.HP.1 ---
History of Present Illness History of Present Illness Date Patient Seen: 05/31/24 Chief complaint: Stroke Narrative: From ED doctor: Patient is an 84-year-old female. Is on Eliquis secondary to history of DVTs. Has a history of rheumatoid arthritis in his on medications for this. Brought in for evaluation of an event that occurred this morning. States she was sitting at her computer. She started noticing some vague symptoms to include some vision changes and a slight headache. She has a history of ocular migraines but this felt different than that. She then stated that she was having problems saying words. Unsure as to how long the symptoms lasted but it could have been up to a couple hours. Other than a ?fullness? in her head she states that all of her symptoms have resolved. During the event she did not have any numbness or tingling in her upper and lower extremities. No chest pain, shortness of breath, abdominal pain. She has taken all of her medications as directed. On Anticoagulants: Yes (eloquis). Given aspirin in the emergency department. On Eliquis. S: She has no history of TIA or stroke. She has history of ocular migraines which are usually flashing lights. Today she had an episode of garbled speech where the words on her head but would not come out. She has not sure that her right leg weakness is any different than normal relating to chronic back pain and back surgery. Her symptoms have resolved. She was given aspirin in the emergency department. She denies headache today or recently. Everything else has been normal leading up until this episode. She was a family history of stroke with her mother. [facility] Medical History Stage 3a chronic kidney disease (CKD) Family history of colon cancer in father History of colonic polyps GERD without esophagitis Mixed hyperlipidemia Essential hypertension Chronic anticoagulation History of pulmonary embolism Carpal tunnel syndrome Vision disorder Hearing loss Rheumatoid arthritis (~2001) Osteoarthritis Sleep apnea (~2009) Scoliosis Osteoporosis (~2019) Chronic back pain Mumps Measles Chicken pox Cataracts, bilateral (~2019) Deep vein thrombosis (~2009) Skin cancer Uterine prolapse (~2019) History of hyperlipidemia History of pulmonary embolism Hypertension Surgical History Status post lumbar spinal fusion Anesthesia History of hysterectomy (~2021) Amputated toe of right foot (~2020) History of breast augmentation History of cholecystectomy History of hand surgery Yeboah's neuroma Melanoma (~1989) History of shoulder surgery (~2008) H/O: knee surgery History of back surgery No significant past surgical history Family History Mother Hypertension TIA (transient ischemic attack) Social History details: Partner (Hugo), grown children household members: significant other Smoking Status: Never smoker Meds Home Medications and Allergies Home Medications Medication Instructions Recorded Confirmed Type fexofenadine 180 mg tablet 180 mg PO DAILY PRN Allergy 01/14/19 05/31/24 History (Sadie Allergy) Symptoms multivitamin 1 cap PO QAM 01/14/19 05/31/24 History cholecalciferol (vitamin D3) 50 2,000 unit PO DAILY 04/02/20 05/31/24 History mcg (2,000 unit) tablet (Vitamin D3) etanercept 50 mg/mL (1 mL) 50 mg SUBCUT QWEEK 03/22/22 05/31/24 History subcutaneous pen injector (Enbrel SureClick) leflunomide 20 mg tablet 20 mg PO DAILY 03/22/22 05/31/24 History Disabled Parking Permit 1 ea Not Applicable DAILY #1 ea 05/27/23 05/31/24 Rx potassium chloride 20 mEq 20 meq PO 3XW #40 tabs 09/26/23 05/31/24 Rx tablet,extended release chlorthalidone 25 mg tablet 25 mg PO DAILY #90 tabs 01/30/24 05/31/24 Rx clonidine HCl 0.1 mg tablet 0.1 mg PO BID #180 tabs 01/30/24 05/31/24 Rx gabapentin 300 mg capsule 300 mg PO .COMPLEX #360 caps 01/30/24 05/31/24 Rx omeprazole 20 mg capsule,delayed 20 mg PO DAILY #90 caps 01/30/24 05/31/24 Rx release felodipine 10 mg tablet,extended 10 mg PO DAILY #90 tabs 02/27/24 05/31/24 Rx release 24 hr apixaban 5 mg tablet (Eliquis) 5 mg PO BID #180 tabs 03/06/24 05/31/24 Rx losartan 100 mg tablet 100 mg PO DAILY #90 tabs 03/28/24 05/31/24 Rx atorvastatin 20 mg tablet 20 mg PO BEDTIME #90 tabs 04/27/24 05/31/24 Rx Allergies Allergy/AdvReac Type Severity Reaction Status Date / Time atracurium [ATRACURIUM] Allergy Unknown Verified 04/04/24 07:51 mivacurium [MIVACURIUM] Allergy Unknown Verified 04/04/24 07:51 succinylcholine Allergy Unknown Verified 04/04/24 07:51 [SUCCINYLCHOLINE] enalaprilat [From VASOTEC] AdvReac Mild cough Verified 04/04/24 07:51 Review of Systems Review of Systems Narrative: All else reviewed and otherwise unremarkable except as noted in the history and physical. Exam Vital Signs (past 8 hours): - 05/31/24 13:01 Pulse Rate 69 Respiratory Rate 24 Blood Pressure 164/70 H Pulse Oximetry 95 Oxygen Delivery Method Room Air Oxygen Delivery Method Room Air Narrative Exam Narrative: NAD, alert and oriented, fluent speech, calm. Normocephalic skull, EOMI, anicteric sclera, symmetric pupils. Oropharynx unremarkable, no droop. Neck supple, midline trachea, no adenopathy. Lungs clear, normal rate and effort. Heart regular, 3/6 systolic murmur and no gallop or rub. Abdomen is soft, non distended and non tender. Extremities are free of edema. Skin is free of rash or lesions. Joints are not swollen or deformed. Judgment appears to be normal. Neuro: CN 2 through 12 intact, speech normal. No facial droop. Negative pronator drift, both arms with normal motor strength. Right leg slightly weaker than the left with a straight leg raise, this may be chronic. Objective ECG Impression: NSR Imaging Multiple studies:: Radiologist's impression: CT brain: No acute intracranial hemorrhage is seen. No acute intracranial pathology. CTA Head and Neck: No significant intracranial arterial abnormality is seen. Focal calcification with 50% narrowing is seen involving the right V4 segment. No significant carotid stenosis is seen. Labs 05/31/24 12:37 05/31/24 12:37 Labs: Laboratory Results - last 24 hr 05/31/24 12:37 WBC 10.8 RBC 3.77 L Hgb 11.5 L Hct 34.3 L MCV 91.0 MCH 30.4 MCHC 33.4 RDW 13.1 Plt Count 292 Neut % (Auto) 54.0 Lymph % (Auto) 29.1 [place] % (Auto) 8.3 Eos % (Auto) 8.0 H Baso % (Auto) 0.6 Neut # (Auto) 5900 Lymph # (Auto) 3200 [place] # (Auto) 900 Eos # (Auto) 900 H Baso # (Auto) 100 PT 14.4 H INR 1.3 APTT 39 H Sodium 131 L Potassium 4.1 Chloride 99 Carbon Dioxide 22 BUN 43 H Creatinine 1.25 H Estimated GFR 43 L BUN/Creatinine Ratio 34.4 H Glucose 104 Calcium 9.6 Magnesium 1.7 Total Bilirubin 0.6 AST 28 ALT 17 Alkaline Phosphatase 66 Total Creatine Kinase 212 H Troponin I < 0.012 Total Protein 7.6 Albumin 4.4 Globulin 3.2 Albumin/Globulin Ratio 1.4 Lipase 218 Ethyl Alcohol < 10 Assessment & Plan Assessment & Plan narrative: 1. TIA, present on admission and active. 2. 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 3. Rheumatoid arthritis, present on admission and stable. 4. Recurrent ocular migraines, present on admission and active. 5. Hypertension, present on admission and active. 6. Mixed hyperlipidemia, present on admission and active. 7. Sleep apnea, present on admission and active. 8. Systolic murmur, present on admission and active. PLAN: -telemetry -add aspirin monotherapy to Eliquis -monitor neurologic status -echo to rule out structural defects (and assess murmur) -MRI brain, rule out stroke. -period of permissive hypertension. -continue anticoagulation. Expect a 1 night hospital stay, observation status. Full resuscitation. Proxy decision maker is Kimberlee, [id number] She was getting on Tuesday. Time-Based Coding :: 35 min spent with patient and on the chart (including review of chart, obtaining history, exam, reviewing outside data, placing orders, documenting exam and treatment plan, and counseling patient) on 05/31. Quality MIPS - Admit I confirm the patient?s Advance Care Plan is present, Code status is documented, Surrogate decision maker is in patient?s record [If Yes, STOP here]: Yes MIPS - Meds 'Current medications' to include all prescriptions, [id number] products, herbals, cannabis/cannabidiol products, and vitamin/mineral/dietary (nutritional) supplements. I have utilized all available resources to obtain, update, or review the patient?s current medications. [If Yes, STOP here]: Yes
[2024-05-31] MEDS: ASPIRIN 81 MG CHEW TAB 324 MG PO (14:13)
--- NOTE | 2024-05-31 16:25 | DI.MRI.S_ITS ---
PROCEDURE: MR HEAD/BRAIN WO CON INDICATIONS: stroke TECHNIQUE: Non-contrast axial T1 spin echo, axial T2 fast spin echo, sagittal and axial FLAIR, coronal T2 fast spin echo, axial gradient echo, axial diffusion and ADC through the brain. COMPARISON: None. FINDINGS: Image quality: Excellent. CSF spaces: Ventricles appear symmetric in size and shape. Basal cisterns are patent. No extra-axial fluid collections. Brain: No intracranial bleeds or mass effects. There is cerebral volume loss for age. There are periventricular and mild, age-appropriate deep white matter chronic small vessel ischemic changes. Brainstem appears normal. Diffusion-weighted images show no acute infarct. Old tiny left lamina lacunar infarct with petechial hemorrhage resulting in a magnetic susceptibility artifact on GRE images. Normal intravascular flow voids are present. Skull and face: Calvarial bone marrow is normal in signal. Orbits are normal. Sinuses: Sinuses and mastoids are clear. IMPRESSION: 1. No acute intracranial process. 2. Mild small vessel ischemic change, tiny old lacunar infarction. Dictated by: Juancho Villareal M.D. on 06/01/2024 at 11:19 Approved by: Juancho Villareal M.D. on 06/01/2024 at 11:20
[2024-05-31] MEDS: ATORVASTATIN 20 MG TABLET 80 MG PO (20:24)
[2024-06-01] VITALS: BP 167/83; PULSE 59; RESP 16; TEMP 36.4; O2SAT 94
[2024-06-01] MEDS: ACETAMINOPHEN 325 MG TABLET 650 MG PO (02:33)
[2024-06-01 05:05] VITALS: BP 167/88; PULSE 69; RESP 19; TEMP 36.3; O2SAT 95
--- NOTE | 2024-06-01 06:23 | DI.ECHO.S_ITS ---
[facility] : : [address] : : [place] : : [id number] : : Phone: [phone] Echocardiogram Report + + :Name: NILES CURIEL Study Date: 06/01/2024 Height: 61 in : :Hospital ReadingLocation: Weight: 147 lb : : Gender: Female BSA: 1.7 m2 : :: 1940 Age: 84 yrs BP: 167/88 mmHg: :Reason For Study: STROKE : :Ordering Physician: MURIEL, : :SHIRAZ Frias MD Performed By: Vee Baptiste : :Referring: SHIRAZ LLAMAS MD : + + Interpretation Summary The ejection fraction is estimated to be 55-60%. Grade I diastolic dysfunction. The right ventricle is normal in size and function. Pulmonary artery pressures cannot be estimated because of the lack of a measurable TR jet velocity. The left atrium is severely dilated. There is no Doppler evidence for an interatrial shunt. There is mild aortic stenosis. Procedure: A two-dimensional transthoracic echocardiogram with color flow and Doppler was performed. The study quality was technically adequate. Comparison is made with the echocardiogram of 04/02/2020. The patient was in sinus rhythm with heart rates between 59-65 bpm during the exam. Left Ventricle: The left ventricle is normal in size and wall thickness. The ejection fraction is estimated to be 55-60%. Septal motion is consistent with conduction abnormality. Grade I diastolic dysfunction. Right Ventricle: The right ventricle is normal in size and function. Atria: The left atrium is severely dilated. Right atrial size is normal. There is no Doppler evidence for an interatrial shunt. Mitral Valve: The mitral valve is normal in structure and function. There is trace mitral regurgitation. Aortic Valve: The aortic valve is mildly calcified. The aortic valve is trileaflet. There is mild aortic stenosis. The peak aortic velocity is 2.2 m/sec. The aortic valve mean gradient is 11 mmHg. The calculated aortic valve area is 1.6 cm2. No aortic regurgitation is present. Tricuspid Valve: The tricuspid valve is normal in structure and function. There is trace tricuspid regurgitation. Pulmonary artery pressures cannot be estimated because of the lack of a measurable TR jet velocity. Pulmonic Valve: The pulmonic valve leaflets are thin and pliable; valve motion is normal. There is no pulmonic valvular regurgitation. Great Vessels: The aortic root is normal size. The dimensions of the ascending aorta are normal. The IVC is of normal diameter and collapses greater than 50% with a sniff. This suggests a low right atrial pressure of 3 mm Hg. Pericardium/ Pleura There is no pericardial effusion. There is no pleural effusion. MMode/2D Measurements & Calculations LVIDd: 4.7 cm LVOT diam: 2.0 cm LVIDs: 2.9 cm Ao root diam: 3.0 cm FS: 37.8 % asc Aorta Diam: 3.2 cm IVSd: 0.92 cm Ao Arch Diam (Prox Trans): 2.4 cm LVPWd: 0.72 cm LV rainey. diameter/BSA (cm/m^2): 2.9 LV sys. diameter/BSA (cm/m^2): 1.8 LA A2 area: 24.9 cm2 RA long axis: 4.9 cm LA A4 area: 18.1 cm2 RA area: 15.2 cm2 LA length (vol): 4.9 cm RA vol: 40.4 ml LA vol: 78.7 ml RA : 24.4 ml/m2 LA vol index: 47.5 ml/m2 IVC diam: 1.4 cm RVD1 (basal): 3.3 cm TAPSE: 2.3 cm Doppler Measurements & Calculations Ao V2 max: 221.1 cm/sec LVOT Max Juan: 112.7 cm/sec Ao V2 mean: 155.7 cm/sec LV V1 max P.1 mmHg Ao max P.6 mmHg LV V1 VTI: 26.9 cm Ao mean P.8 mmHg CYNTHIA(I,D): 1.6 cm2 Ao V2 VTI: 53.3 cm CYNTHIA(V,D): 1.6 cm2 sev ratio: 0.50 CYNTHIA indexed to BSA (cm^2/m^2): 0.95 MV E max juan: 49.1 cm/sec PA V2 max: 101.7 cm/sec MV A max juan: 70.5 cm/sec PA V2 mean: 70.5 cm/sec MV E/A: 0.70 PA mean P.2 mmHg Med Peak E' Juan: 5.2 cm/sec PA pr(Accel): 53.3 mmHg E/E' med: 9.5 Lat Peak E' Juan: 6.8 cm/sec E/E' lat: 7.3 E/e' average: 8.4 MV dec time: 0.36 sec SV(LVOT): 83.6 ml Reading Physician:AMAYA
[2024-06-01 07:01] LABS: Add Manual Diff / Slide Review NO; Basophils Absolute Auto 100 /uL (0-100); Basophils Percent Auto 1.1 % (0-2); Eosinophils Absolute Auto 1300 /uL (0-450); Eosinophils Percent Auto 13.5 % (2-4); Hemoglobin 12.2 g/dL (12.0-16.0); Lymphocytes Absolute Auto 2900 /uL (1100-4500); Lymphocytes Percent Auto 30.5 % (25-40); Mean Corpuscular Volume 91.4 fL (80-100); Monocytes Absolute Auto 900 /uL (0-900); Monocytes Percent Auto 8.9 % (3-14); Neutrophils Absolute Auto 4400 /uL (1500-7000); Platelet Count 281 X10^3/uL (150-400); Red Blood Cell Count 3.94 X10^6/uL (4.0-5.2); Red Cell Distribution Width 12.6 % (11.6-14.8); White Blood Cell Count 9.5 X10^3/uL (4.5-11.0)
[2024-06-01 07:13] LABS: Blood Urea Nitrogen 33 mg/dL (7-17); Calcium 9.6 mg/dL (8.4-10.2); Carbon Dioxide 23 mmol/L (22-32); Chloride 102 mmol/L (98-107); Estimated Glomerular Filt Rate 58 mL/min (>60); Glucose 96 mg/dL (80-110); HEMOLYSIS < 15 (0-50); Potassium 3.9 mmol/L (3.4-5.1); Sodium 135 mmol/L (137-145)
[2024-06-01] MEDS: GABAPENTIN 300 MG CAPSULE PO (08:15)
[2024-06-01] MEDS: ASPIRIN EC 81 MG TABLET PO (08:15)
[2024-06-01] MEDS: cloNIDine 0.1 MG TABLET PO (08:15)
[2024-06-01] MEDS: CHOLECALCIFEROL (VITAMIN D3) 1,000 UNIT TABLET 2000 UNIT PO (08:15)
[2024-06-01] MEDS: APIXABAN 5 MG TABLET PO (08:15)
[2024-06-01] MEDS: CHLORTHALIDONE 25 MG TABLET PO (08:15)
[2024-06-01] MEDS: AMLODIPINE 5 MG TABLET 10 MG PO (08:15)
[2024-06-01] MEDS: LOSARTAN 50 MG TABLET 100 MG PO (08:16)
--- NOTE | 2024-06-01 08:40 | PC.NURSE ---
Patients blood pressure 190/96. She denies any vision issues, or speech complications and patient is speaking clear with no aphagia and tolerating food well. NIH scale a 0 at this time, and patients blood pressure medications and eloquis have been given. Daughter in law called for an update on patient and to talk and she will also be having an MRI today. Echo done earlier.
[2024-06-01 09:00] VITALS: BP 190/96; PULSE 65; RESP 16; TEMP 36.1; O2SAT 99
--- NOTE | 2024-06-01 09:30 | CM.DANOTE ---
Initial DCP Assessment Note Pt is a 84 yo female, resident of [place], arrives w/code stroke, admitted for further work up with suspected TIA PCP: Edilberto Adame Payer: [employer] Reviewed chart, met w/patient to introduce self and role. Patient lives independently, cares for her SO of 12 years, Hugo, who has metastatic prostate cancer an lymphoma. Patient helps SO w/most ADLs although SO has been feeling fairly well lately. Patient shares that she and SO are getting on Tuesday and would like to get out of here. Patient's daughters Kimberlee (an RN and lives locally) and Apryl (lives in [place]) are with SO Hugo while patient admitted. Patient denies needs from this CM team. Reports SO Hugo has had [facility] in the past and she would like to have [facility] if it was recommended. No barriers identified at this time to patient's safe discharge home w/family to assist; close outpatient f/u recommended. CM team will plan to follow clinical course closely in case any DC needs or concerns arise. FOSTER Sherman Discharge Planning/Care Management CM Discharge Assessment Start: 06/01/24 09:16 Freq: Status: Active Protocol: Document 06/01/24 09:16 NU (Rec: 06/01/24 09:30 NU [id number]) Discharge Planning Assessment Assigned Accountant FOSTER Tripp DPOA/Assigned Designee Name Kimberlee Brady [phone], Apryl Kim [phone] Advance Directives? Yes Advance Directives on File Yes History Provided By Patient,Medical Record Prior Living Arrangements Apartment/Condo Household Members significant other Type of transporation used prior to Drives own vehicle admit Independent with ADL's Yes Is patient alert and oriented? Yes Caregiver for Another Yes: SO Bill Barriers to Discharge No Discharge Plan Home Transportation Arrangement Family Referrals Initiated None needed
--- NOTE | 2024-06-01 09:43 | OT.IP.EVAL ---
Past Medical History (Last Reviewed 05/31/24 @ 13:49 by Kirill Guzman MD) Carpal tunnel syndrome Cataracts, bilateral (~2019) Chicken pox Chronic anticoagulation Chronic back pain Deep vein thrombosis (~2009) Essential hypertension Family history of colon cancer in father GERD without esophagitis Hearing loss History of colonic polyps History of hyperlipidemia History of pulmonary embolism History of pulmonary embolism Hypertension Measles Mixed hyperlipidemia Mumps Osteoarthritis Osteoporosis (~2019) Rheumatoid arthritis (~2001) Scoliosis Skin cancer Sleep apnea (~2009) Stage 3a chronic kidney disease (CKD) Uterine prolapse (~2019) Vision disorder Surgical History (Last Reviewed 05/31/24 @ 13:49 by Kirill Guzman MD) Amputated toe of right foot (~2020) Anesthesia H/O: knee surgery History of back surgery History of breast augmentation History of cholecystectomy History of hand surgery History of hysterectomy (~2020) History of shoulder surgery (~2008) Melanoma (~1989) Yeboah's neuroma No significant past surgical history Status post lumbar spinal fusion Occupational Therapy Inpatient Evaluation/Re-Eval M1 PT/OT-IP Prior Functional Status Start: 06/01/24 10:21 Freq: NEEDED Status: Active Protocol: Document 06/01/24 10:21 [facility] (Rec: 06/01/24 10:48 [facility] [id number]) Medical Review Prior Functional Status Communication Independent Mobility and Gait Pt does not use a device. Activities of Daily Living and IADL's Pt is completely independent with ADLs, IADLs, and drives Social History Household Members significant other Living Arrangements Apartment/Condo Number of Stairs To Enter/Railing? Use of elevator Home Environment High Toilet,Walk in Shower, Built-In Shower Seat Home Equipment Hand Held Shower,Grab Bars Near Toilet M2 OT-IP Current Condition Start: 06/01/24 10:21 Freq: Status: Active Protocol: Document 06/01/24 10:21 [facility] (Rec: 06/01/24 10:48 [facility] [id number]) Occupational Therapy Current Condition Current Condition Evaluation Date 06/01/24 Treatment Diagnosis TIA Diagnosis Onset Date 05/31/24 M3 OT- IP Subjective and Pain Start: 06/01/24 10:21 Freq: Status: Active Protocol: Document 06/01/24 10:21 [facility] (Rec: 06/01/24 10:48 [facility] [id number]) OT- Subjective Occupational Therapy Visit Type Type Initial Evaluation Visit Start Time 08:50 Visit Stop Time 09:43 Occupational Therapy Visit Comments Patient Comments Pt agreed to get up and work with OT. Patient/Caregiver Goals TO go home. OT Pain Assessment Pain When Pain Assessed At Rest Pain Present Pain Present Denied Pain M4 OT- IP ADL's Start: 06/01/24 10:21 Freq: Status: Active Protocol: Document 06/01/24 10:21 [facility] (Rec: 06/01/24 10:48 [facility] [id number]) OT NTZ-Vytv-Lufjrsc General Evaluation Self-Feeding Ability Independent OT ADL-Grooming General Evaluation Grooming Ability Independent OT ADL-Oral Care General Eval Oral Care Ability Independent OT ADL-Dressing General Eval Lower Body Dressing Ability Independent Comments OT Dressing Comments Pt able to paulina/doff compression stocking on her own while seated. OT ADL-Toileting Comments OT Toileting Comments Pt states has been using the toilet on her own. OT ADL-Bathing Comments OT Bathing Comments NOt performed. M5 OT- IP IADL's Start: 06/01/24 10:21 Freq: Status: Active Protocol: Document 06/01/24 10:21 [facility] (Rec: 06/01/24 10:48 [facility] [id number]) OT-Instrumental Activities of Daily Living Home Safety Awareness Awareness of Need for Assistance at Home Good Awareness Ability to Problem Solve Emergency Able to Problem Solve Situations Home Safety Comments Pt able to answer all home safety situations with good accuracy. Medication Management Medication Management Comments Pt states able to do on her own. Money Management Money Management Comments Pt able to do on her own but may benefit from assist. Meal Preparation Meal Preparation Comments Pt states has been having difficulty to read recipes more in recent past, trying to remember what to do and having to read the recipes over and over. Specimen Boss Specimen Boss Comments Pt would benefit from assist. Driving Driving Concerns Identified Regarding Safety M6 OT- IP Functional Cognition Start: 06/01/24 10:21 Freq: Status: Active Protocol: Document 06/01/24 10:21 [facility] (Rec: 06/01/24 10:48 [facility] [id number]) Cognitive Factors Limiting Selfcare Function Cognitive Ability Level of Alertness Alert Patient Orientation Name,Age,Birthday,Month,Date, Year,Day of Week,Place, Situation Attention Span Ability Capable of Focused Attention, Capable of Sustained Attention Memory Description Short Term Impaired Safety Awareness No Deficits Noted Problem Solving Ability No deficits Noted Executive Function Ability Unable to Remember Details Cognitive Tests SLUMS Pt scored 23/30 on the SLUMS which implies mild neurocognitive deficits. Pt able to recall 2/5 objects after time passed, not able to draw the hours hand son the clock correctly after time given, and able to answer 3/4 questions right after paragraph read. Cognitive Comments Cognitive Assessment Comments Pt scored 109 seconds and two cues for [place] Making Part B which implies moderate impairments for visual attention, speed of processing , executive functioning, mental flexibility, and task switching. Pt's score from 04/02 was 84seconds. Suggested pt not drive at this time. Pt states has been talking about if her family not available to assist to call for an uber/ taxi if needed. OT- Vision and Hearing OT- Hearing Assessment OT- Hearing Assessment Hearing Impaired OT- Vision Assessment Visual Acuity Glasses All The Time Visual Attentiveness WFL Occular Pursuits WFL Visual Convergence WFL Visual Sawyer WFL M7 OT- IP Mobility and Balance Start: 06/01/24 10:21 Freq: Status: Active Protocol: Document 06/01/24 10:21 [facility] (Rec: 06/01/24 10:48 [facility] [id number]) OT- Bed Mobility Assessment Supine to Sit Supine to Sit Assist Independent Sit to Supine Sit to Supine Assist Independent Scooting Scooting to Edge of Bed Independent OT-Transfer Assessment Sit to and From Stand Sit to and from Stand Independent Transfers Transfer Ability Standby Assistance Technique Transfer Destination Bed,Chair Transfer Technique Stand Step Pivot Devices Transfer Assistive Devices None,Gait Belt Comments Mobility Comments Independent bed mobility and distant SBA while walking in the room with no device OT- Balance Assessment Sitting Balance and Reactions Static Sitting Balance Ability Normal Dynamic Sitting Balance Ability Normal Standing Balance and Reactions Static Standing Balance Ability Normal Dynamic Standing Balance Ability Good M8 OT- IP Objective Assessments Start: 06/01/24 10:21 Freq: Status: Active Protocol: Document 06/01/24 10:21 [facility] (Rec: 06/01/24 10:48 [facility] [id number]) OT Gross Range of Motion Upper Extremity Range of Motion Assessment Within Functional Limits OT Strength Upper Extremity Strength Assessment Within Functional Limits Comments Strength Comments WFL for age and lifestyle OT- Coordination Assessment Comments Coordination Comments 9 hole peg 23 seconds for both hands and just below 90% for left hand and 75% for right hand, pt is right handed. OT-Muscle Tone Assessment Muscle Tone WNL Yes OT Sensation Assessment Comments Summary Comments Intact M9 OT- IP Assessment and Plan Start: 06/01/24 10:21 Freq: Status: Active Protocol: Document 06/01/24 10:21 [facility] (Rec: 06/01/24 10:48 [facility] [id number]) OT Summary Assessment and Plan Potential Rehabilitation Potential Excellent Analytic Complexity at Evaluation Low Summary OT Impairments Balance,Functional Cognition, Bathing,Shower Transfers Progress Towards Goals Progressing Toward Goals Assessment Summary Pt here for TIA and possibly CVA pending MRI. Pt's main deficits are decreased STM and comprehension of complex instructions. Pt states feels that she is at her baseline. Pt scored 23/ 30 on the SLUMS which implies mild cognitive deficits. Pt scored 109seconds on [place] Making part B which implies mod deficits fro visual attention, task switching, speed of processing, executive functioning, and mental flexibility. Pt is aware to have her family assist to drive or call for taxi/uber especially for out of town driving. Pt to go home with increased assisted. Goals Bathing Goal Independent Shower Transfer Goal Independent Days to Meet Goals 1 Frequency of Treatment Frequency Of Treatment Once a Day Treatment Plan OT Treatment Plan ADL Training,Functional Cognition Training,Functional Mobility,Patient/Family Education,Discharge Planning Discharge Recommendations OT Discharge Recommendations Home with Assistance Transportation Needs at Discharge Private Vehicle
--- NOTE | 2024-06-01 11:35 | PT.IIE ---
Surgical History (Last Reviewed 05/31/24 @ 13:49 by Kirill Guzman MD) Amputated toe of right foot (~2020) Anesthesia H/O: knee surgery History of back surgery History of breast augmentation History of cholecystectomy History of hand surgery History of hysterectomy (~2020) History of shoulder surgery (~2008) Melanoma (~1989) Yeboah's neuroma No significant past surgical history Status post lumbar spinal fusion Medical History (Last Reviewed 05/31/24 @ 13:49 by Kirill Guzman MD) Carpal tunnel syndrome Cataracts, bilateral (~2019) Chicken pox Chronic anticoagulation Chronic back pain Deep vein thrombosis (~2009) Essential hypertension Family history of colon cancer in father GERD without esophagitis Hearing loss History of colonic polyps History of hyperlipidemia History of pulmonary embolism History of pulmonary embolism Hypertension Measles Mixed hyperlipidemia Mumps Osteoarthritis Osteoporosis (~2019) Rheumatoid arthritis (~2001) Scoliosis Skin cancer Sleep apnea (~2009) Stage 3a chronic kidney disease (CKD) Uterine prolapse (~2019) Vision disorder Physical Therapy Inpatient Evaluation/Re-Eval M1 PT/OT-IP Prior Functional Status Start: 06/01/24 13:06 Freq: NEEDED Status: Active Protocol: Document 06/01/24 11:35 [facility] (Rec: 06/01/24 13:19 [facility] [id number]) Medical Review Prior Functional Status Medical History Reviewed Yes Communication able to make needs known Mobility and Gait pt stated that she was independent with all mobilities and ambulation without AD indoors but use a walking stick for outdoor mobility Activities of Daily Living and IADL's per OT note: Pt is completely independent with ADLs, IADLs, and drives Social History Household Members significant other Living Arrangements Apartment/Condo Number of Floors (Floors) One Floor Number of Stairs To Enter/Railing? pt lives on a 2nd level condo that has access to an elevator Home Environment High Toilet,Walk in Shower, Built-In Shower Seat Home Equipment Shower Seat with Backrest,Hand Held Shower,Grab Bars Near Toilet Additional Social History Comment pt has a walking stick M2 PT-IP Current Condition Start: 06/01/24 13:06 Freq: NEEDED Status: Active Protocol: Document 06/01/24 11:35 [facility] (Rec: 06/01/24 13:19 AB [id number]) Physical Therapy Current Condition Current Condition Evaluation Date 06/01/24 Treatment Diagnosis brain TIA; difficulty in walking Onset Date M3 PT-IP Subjective Start: 06/01/24 13:06 Freq: NEEDED Status: Active Protocol: Document 06/01/24 11:35 [facility] (Rec: 06/01/24 13:19 AB [id number]) Subjective Physical Therapy Visit Type Type Initial Evaluation Visit Start Time 11:35 Visit Stop Time 11:50 Number of SHELL[place]OWER Visits 0 Physical Therapy Visit Comments Patient Comments agreeable to do PT Therapy Pain Assessment Pain Present Pain Present Denied Pain M4 PT-IP Mobility and Gait Start: 06/01/24 13:06 Freq: NEEDED Status: Active Protocol: Document 06/01/24 11:35 [facility] (Rec: 06/01/24 13:19 AB [id number]) PT-Transfer Assessment Sit to and From Stand Sit to and from Stand Standby Assistance Equipment Transfer Assistive Device None,Gait Belt Orthotic/Prosthetic Devices or Brace: No Transfers Transfer Destination Chair Transfer Technique ambulated Transfer Ability Level of Assist Standby Assistance,Use of Upper Extremities Comments Mobility Comments checked on pt and pt standing by herself trying to make her bed. pt agreed to do PT and sat back on EOB. obtained PLOF and home set up from pt. pt completed sit to stand SBA and ambulated in room without AD ~ 40 ft SBA. presents with an antalgic gait with increase L sided trunk lean. pt stated that her one leg is shorted and was using a shoe lift before. pt without LOB during walking, with gait deviations but steady gait. pt sat back on chair. positioned pt on the chair. call light and table placed within reach. no further PT needs and pt agreed. Gait Assessment Gait Gait Assistance Required: Standby Assistance Distance (Feet) 40 Able to Maintain Weight Bearing Status Yes During Gait Assistive Devices Assistive Device None,Gait Belt Orthotic/Prosthetic Devices or Brace: No Gait Deviations General Gait Pattern Antalgic,Decreased Stride Length,Decreased Feet Clearance,Lateral Trunk Lean Factors Limiting Gait Function Factors Limiting Gait Function Decreased Activity Tolerance, Decreased Strength,Limited Range of Motion,Poor Balance PT-Balance Assessment Sitting Balance and Reactions Static Sitting Balance Ability Normal Dynamic Sitting Balance Ability Normal Standing Balance and Reactions Static Standing Balance Ability Good Dynamic Standing Balance Ability Good Device Used without AD M5 PT-IP Objective Assessments Start: 06/01/24 13:06 Freq: NEEDED Status: Active Protocol: Document 06/01/24 11:35 [facility] (Rec: 06/01/24 13:19 AB [id number]) Orientation Orientation/Cognition Level of Alertness Alert Orientation Name Language Function Ability No Deficits Noted Safety Awareness Understands Safety Issues Memory Description No Deficits Noted Gross Range of Motion Lower Extremity ROM Assessment Within Functional Limits Strength Lower Extremity Strength Assessment Within Functional Limits Sensation Assessment Sensation Gross Sensation WNL Muscle Tone Muscle Tone WNL Yes M6 PT-IP Treatment Start: 06/01/24 13:06 Freq: NEEDED Status: Active Protocol: Document 06/01/24 11:35 [facility] (Rec: 06/01/24 13:19 AB [id number]) Physical Therapy Treatment Education Education Provided Safety M7 PT-IP Assessment and Plan Start: 06/01/24 13:06 Freq: NEEDED Status: Active Protocol: Document 06/01/24 11:35 [facility] (Rec: 06/01/24 13:19 AB [id number]) PT Summary Assessment and Plan Potential Rehabilitation Potential Fair Status of Condition at Evaluation Stable Summary Impairments Strength,Balance,Gait,Activity Tolerance Assessment Summary pt is an 84 y/o F who is admitted for brain TIA. pt requiring SBA with mobility for safety but can be independent in her room. No further PT needs at this time. Frequency of Treatment Frequency Of Treatment Discharge Discharge Recommendations Transportation Needs at Discharge Private Vehicle
--- NOTE | 2024-06-01 12:23 | PM.DS.1 ---
History of Present Illness History of Present Illness Date Patient Seen: 06/01/24 Time Patient Seen: 12:23 Chief complaint: Stroke Narrative: From ED doctor: Patient is an 84-year-old female. Is on Eliquis secondary to history of DVTs. Has a history of rheumatoid arthritis in his on medications for this. Brought in for evaluation of an event that occurred this morning. States she was sitting at her computer. She started noticing some vague symptoms to include some vision changes and a slight headache. She has a history of ocular migraines but this felt different than that. She then stated that she was having problems saying words. Unsure as to how long the symptoms lasted but it could have been up to a couple hours. Other than a ?fullness? in her head she states that all of her symptoms have resolved. During the event she did not have any numbness or tingling in her upper and lower extremities. No chest pain, shortness of breath, abdominal pain. She has taken all of her medications as directed. On Anticoagulants: Yes (eloquis). Given aspirin in the emergency department. On Eliquis. S: She has no history of TIA or stroke. She has history of ocular migraines which are usually flashing lights. Today she had an episode of garbled speech where the words on her head but would not come out. She has not sure that her right leg weakness is any different than normal relating to chronic back pain and back surgery. Her symptoms have resolved. She was given aspirin in the emergency department. She denies headache today or recently. Everything else has been normal leading up until this episode. She was a family history of stroke with her mother. Discharge Providers Provider Date of admission: 05/31/24 13:49 Discharge Date: 06/01/24 Primary care physician: Edilberto Adame MD Consults: 05/31/24 16:24 Consult to Discharge Planning Routine Comment: Consult to Occupational Therapy Evaluate & Treat Comment: Physician Instructions: Evaluate and treat Consult to Physical Therapy Evaluate & Treat Comment: Physician Instructions: Evaluate and Treat Consult to Speech Therapy Evaluate & Treat Comment: Physician Instructions: Evaluate and treat Discharge provider: Get Wilder DO Summary Hospital Course Discharge Diagnosis: 1. TIA, present on admission and active. 2. 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 3. Rheumatoid arthritis, present on admission and stable. 4. Recurrent ocular migraines, present on admission and active. 5. Hypertension, present on admission and active. 6. Mixed hyperlipidemia, present on admission and active. 7. Sleep apnea, present on admission and active. 8. Systolic murmur, present on admission and active. Hospital Course: This is an 84 year old female with PMH of DVT/PE, RA, HTN, HLD who presented with vision changes and word finding difficulties that resolved. Telemetry was unremarkable, and prior echocardiogram showed no known PFO. MRI showed an old infact but nothing acute. She was started on baby aspirin in addition to her chronic apixaban for DVT rather than triple therapy after discussion of bleeding risk and stroke risk. Her home statin was also increased from 20 mg atorvastatin to 80 mg for high intensity dosing. She was intermittently hypertensive, but remained asymptomatic. She is on a number of antihypertensives and continued monitoring and adjustment of home medications is recommended after discharge with primary care provider. Time Spent with Patient Time spent: Less than 30 minutes Exam Vital Signs (past 8 hours): - 06/01/24 05:05 06/01/24 09:00 Temperature 97.3 F L 97.0 F L Pulse Rate 69 65 Respiratory Rate 19 16 Blood Pressure 167/88 H 190/96 H Pulse Oximetry 95 99 Oxygen Flow Rate 0 Oxygen Delivery Method Room Air Oxygen Flow Rate 0 Narrative Exam Narrative: NAD, alert and oriented, fluent speech, calm. Normocephalic skull, EOMI, anicteric sclera, symmetric pupils. Oropharynx unremarkable, no droop. Extremities are free of edema. Skin is free of rash or lesions. Joints are not swollen or deformed. Judgment appears to be normal. Neuro: CN 2 through 12 intact, speech normal. No facial droop. Objective Labs 06/01/24 06:24 06/01/24 06:24 Labs: Laboratory Results - last 24 hr 05/31/24 06/01/24 12:37 06:24 WBC 10.8 9.5 RBC 3.77 L 3.94 L Hgb 11.5 L 12.2 Hct 34.3 L 36.0 MCV 91.0 91.4 MCH 30.4 31.0 MCHC 33.4 34.0 RDW 13.1 12.6 Plt Count 292 281 Neut % (Auto) 54.0 46.0 L Lymph % (Auto) 29.1 30.5 [place] % (Auto) 8.3 8.9 Eos % (Auto) 8.0 H 13.5 H Baso % (Auto) 0.6 1.1 Neut # (Auto) 5900 4400 Lymph # (Auto) 3200 2900 [place] # (Auto) 900 900 Eos # (Auto) 900 H 1300 H Baso # (Auto) 100 100 PT 14.4 H INR 1.3 APTT 39 H Sodium 131 L 135 L Potassium 4.1 3.9 Chloride 99 102 Carbon Dioxide 22 23 BUN 43 H 33 H Creatinine 1.25 H 0.97 Estimated GFR 43 L 58 L BUN/Creatinine Ratio 34.4 H 34.0 H Glucose 104 96 Calcium 9.6 9.6 Magnesium 1.7 Total Bilirubin 0.6 AST 28 ALT 17 Alkaline Phosphatase 66 Total Creatine Kinase 212 H Troponin I < 0.012 Total Protein 7.6 Albumin 4.4 Globulin 3.2 Albumin/Globulin Ratio 1.4 Lipase 218 Ethyl Alcohol < 10 PFSH Medical History Stage 3a chronic kidney disease (CKD) Family history of colon cancer in father History of colonic polyps GERD without esophagitis Mixed hyperlipidemia Essential hypertension Chronic anticoagulation History of pulmonary embolism Carpal tunnel syndrome Vision disorder Hearing loss Rheumatoid arthritis (~2001) Osteoarthritis Sleep apnea (~2009) Scoliosis Osteoporosis (~2019) Chronic back pain Mumps Measles Chicken pox Cataracts, bilateral (~2019) Deep vein thrombosis (~2009) Skin cancer Uterine prolapse (~2019) History of hyperlipidemia History of pulmonary embolism Hypertension Surgical History Status post lumbar spinal fusion Anesthesia History of hysterectomy (~2020) Amputated toe of right foot (~2020) History of breast augmentation History of cholecystectomy History of hand surgery Yeboah's neuroma Melanoma (~1989) History of shoulder surgery (~2008) H/O: knee surgery History of back surgery No significant past surgical history Family History Mother Hypertension TIA (transient ischemic attack) Social History details: Partner (Bill), grown children household members: significant other Smoking Status: Never smoker Discharge Plan Discharge Plan Patient Disposition: Home Provider Discharge Comment: You were admitted to the hospital with blurry vision and speech changes, possible TIA or stress induced. Started on aspirin and increased statin for possible TIA. Statin medication was sent to your mail order pharmacy, but until then you can take 4 tabs of your old prescription nightly until this medication arrives. (2 is also okay depending on how many pills you have left). MRI did show old stroke but nothing recent. Discharge orders & Medications Prescriptions: New aspirin 81 mg Tablet,Delayed Release (Dr/Ec) 81 mg PO DAILY 90 Days Qty: 90 0RF atorvastatin 80 mg tablet 80 mg PO BEDTIME 90 Days Qty: 90 0RF Continued Disabled Parking Permit 1 ea Not Applicable DAILY Qty: 1 0RF chlorthalidone 25 mg tablet 25 mg PO DAILY Qty: 90 3RF omeprazole 20 mg capsule,delayed release(DR/EC) 20 mg PO DAILY Qty: 90 3RF clonidine HCl 0.1 mg tablet 0.1 mg PO BID Qty: 180 3RF gabapentin 300 mg capsule 300 mg PO .COMPLEX Qty: 360 3RF Rx Instructions: take one capsule in the morning and three capsules at night. This script replaces the previous script. felodipine 10 mg tablet extended release 24 hr 10 mg PO DAILY Qty: 90 3RF Eliquis 5 mg tablet 5 mg PO BID Qty: 180 3RF Enbrel SureClick 50 mg/mL (1 mL) pen injector 50 mg SUBCUT QWEEK leflunomide 20 mg tablet 20 mg PO DAILY potassium chloride 20 mEq tablet extended release 20 meq PO 3XW Qty: 40 3RF losartan 100 mg tablet 100 mg PO DAILY Qty: 90 3RF fexofenadine [Sadie Allergy] 180 mg Tablet 180 mg PO DAILY PRN (Reason: Allergy Symptoms) multivitamin Capsule 1 cap PO QAM cholecalciferol (vitamin D3) [Vitamin D3] 50 mcg (2,000 unit) Tablet 2,000 unit PO DAILY Discontinued atorvastatin 20 mg tablet 20 mg PO BEDTIME Qty: 90 3RF Follow up/Referrals: Edilberto Adame MD [Primary Care Provider] - 1 Week Discharge Health Status Multidrug resistant organism: No MDRO Diet/Activity/Treatments Diet: Diet as Tolerated and Regular Activity: As tolerated no restrictions Visit Report/Discharge Packet Stand Alone Forms: Patient Portal/API, Stroke Signs & Symptoms Discharge Data Primary Care Provider: Kotal,Edilberto V Attending Provider: Kirill Guzman Admit Date/Time: 05/31/24 13:49 Quality VTE Deep Vein Thrombosis/Pulmonary Embolism Present on Admission: No
== END 2024-06-01 14:45 | disposition home or self-care (01) ==
LOC: ED 13:38 → AC 13:50
PROVIDERS: Admitting Provider Hospitalist; Emergency Provider Emergency Medicine; PCP Internal Medicine; Referring Provider Emergency Medicine; Visit Provider Hospitalist
DX: G45.9 Transient cerebral ischemic attack, unspecified (principal); H53.9 Unspecified visual disturbance; R51.9 Headache, unspecified; R29.703 NIHSS score 3; R01.1 Cardiac murmur, unspecified; G47.30 Sleep apnea, unspecified; I10 Essential (primary) hypertension; M06.9 Rheumatoid arthritis, unspecified; Z86.718 Personal history of other venous thrombosis and embolism; Z79.01 Long term (current) use of anticoagulants
CPT/HCPCS: 36415; 70450; 70496; 70498; 70551; 80048; 80053; 80320; 82550; 82962; 83690; 83735; 84484; 85025; 85610; 85730; 93005; 93010; 93306; 97129; 97161; 97165; 97535; 99284; G0378; Q9967

== ENCOUNTER 2024-06-03 10:33 | Emergency (ER) | payer MEDICARE, SELFPAY ==
[2024-05-31 16:19] VITALS: BMI 28.0
[2024-06-03 10:41] VITALS: BP 175/76; PULSE 64; RESP 18; TEMP 36.1; O2SAT 95; BMI 27.1
--- NOTE | 2024-06-03 10:52 | DI.RAD.S_ITS ---
PROCEDURE: XR CHEST 1V INDICATIONS: chest pain TECHNIQUE: One view of the chest was acquired. COMPARISON: [facility], CR, XR CHEST 1V, 08/05/2021, 18:26. FINDINGS: Surgical changes and devices: Bilateral breast implants are grossly intact. Lungs and pleura: Lungs are clear. No pleural effusions or pneumothorax. Mediastinum: Mediastinal contours appear normal. Heart size is normal. Bones and chest wall: No suspicious bony lesions. Overlying soft tissues appear unremarkable. IMPRESSION: No acute cardiopulmonary pathology. Dictated by: Enzo Rios M.D. on 06/03/2024 at 11:40 Approved by: Enzo Rios M.D. on 06/03/2024 at 11:41
--- NOTE | 2024-06-03 11:03 | ED.GENADULT ---
HPI - General Adult General Chief complaint: Hypertension Stated complaint: High BP, Headache Time Seen by Provider: 06/03/24 10:52 Source: patient Mode of arrival: Ambulatory History of Present Illness HPI narrative: Patient 84-year-old female remote history of migraine headaches recently admitted for TIA and elevated blood pressure. She was admitted on 05/31/2024 and discharged on after having a negative MRI it was thought that she is having ocular migraine. She reports that she has a band around her head behind both eyes. She calls it a dull ache. She reports that it is never actually gone away. No nausea vomiting numbness tingling or weakness. Denies any sort of chest pain. See says that her blood pressure has been elevated in the 160s and 170s at home worried that some blood pressure issue. She takes Tylenol for headache but it does not actually help. She is concerned because she is supposed to get today and go [employer] tomorrow. He would full workup a few days ago with a negative MRI and CT angio She is on Eliquis secondary to DVTs. Related Data Home Medications Medication Instructions Recorded Confirmed fexofenadine 180 mg tablet 180 mg PO DAILY PRN Allergy 01/14/19 05/31/24 (Sadie Allergy) Symptoms multivitamin 1 cap PO QAM 01/14/19 05/31/24 cholecalciferol (vitamin D3) 50 2,000 unit PO DAILY 04/02/20 05/31/24 mcg (2,000 unit) tablet (Vitamin D3) etanercept 50 mg/mL (1 mL) 50 mg SUBCUT QWEEK 03/22/22 05/31/24 subcutaneous pen injector (Enbrel SureClick) leflunomide 20 mg tablet 20 mg PO DAILY 03/22/22 05/31/24 Previous Rx's Medication Instructions Recorded Disabled Parking Permit 1 ea Not Applicable DAILY #1 ea 05/27/23 potassium chloride 20 mEq 20 meq PO 3XW #40 tabs 09/26/23 tablet,extended release chlorthalidone 25 mg tablet 25 mg PO DAILY #90 tabs 01/30/24 clonidine HCl 0.1 mg tablet 0.1 mg PO BID #180 tabs 01/30/24 gabapentin 300 mg capsule 300 mg PO .COMPLEX #360 caps 01/30/24 omeprazole 20 mg capsule,delayed 20 mg PO DAILY #90 caps 01/30/24 release felodipine 10 mg tablet,extended 10 mg PO DAILY #90 tabs 02/27/24 release 24 hr apixaban 5 mg tablet (Eliquis) 5 mg PO BID #180 tabs 03/06/24 losartan 100 mg tablet 100 mg PO DAILY #90 tabs 03/28/24 aspirin 81 mg tablet,delayed 81 mg PO DAILY 90 days #90 tabs 06/01/24 release atorvastatin 80 mg tablet 80 mg PO BEDTIME 90 days #90 tabs 06/01/24 Allergies Allergy/AdvReac Type Severity Reaction Status Date / Time atracurium [ATRACURIUM] Allergy Unknown Verified 04/04/24 07:51 mivacurium [MIVACURIUM] Allergy Unknown Verified 04/04/24 07:51 succinylcholine Allergy Unknown Verified 04/04/24 07:51 [SUCCINYLCHOLINE] enalaprilat [From VASOTEC] AdvReac Mild cough Verified 04/04/24 07:51 Patient History Medical History Stage 3a chronic kidney disease (CKD) Family history of colon cancer in father History of colonic polyps GERD without esophagitis Mixed hyperlipidemia Essential hypertension Chronic anticoagulation History of pulmonary embolism Carpal tunnel syndrome Vision disorder Hearing loss Rheumatoid arthritis (~2001) Osteoarthritis Sleep apnea (~2009) Scoliosis Osteoporosis (~2019) Chronic back pain Mumps Measles Chicken pox Cataracts, bilateral (~2019) Deep vein thrombosis (~2009) Skin cancer Uterine prolapse (~2019) History of hyperlipidemia History of pulmonary embolism Hypertension Surgical History Status post lumbar spinal fusion Anesthesia History of hysterectomy (~2020) Amputated toe of right foot (~2020) History of breast augmentation History of cholecystectomy History of hand surgery Yeboah's neuroma Melanoma (~1989) History of shoulder surgery (~2008) H/O: knee surgery History of back surgery No significant past surgical history Family History Mother Hypertension TIA (transient ischemic attack) Social History details: Partner (Bill), grown children household members: significant other Smoking Status: Never smoker Smoking Status: Never smoker alcohol intake frequency: a few times a week Substance Use Type: does not use Exam Initial Vital Signs Initial Vital Signs: Vital Signs Temperature 96.9 F L 06/03/24 10:41 Pulse Rate 64 06/03/24 10:41 Respiratory Rate 18 06/03/24 10:41 Blood Pressure 175/76 H 06/03/24 10:41 Pulse Oximetry 95 06/03/24 10:41 Oxygen Delivery Method Room Air 06/03/24 10:41 GENERAL: Alert very pleasant 84-year-old and in no acute distress. HEENT: Head atraumatic,EOMI, pupils reactive, face symmetric, moist mucous membranes CARDIOVASCULAR: Regular rate and rhythm without murmurs, rubs or gallops. RESPIRATORY: Breath sounds equal bilaterally, no wheezes rales or rhonchi. ABDOMEN: Soft, nontender. Normoactive bowel sounds all 4 quadrants. No guarding or rebound. EXTREMITIES: Normal range of motion, no clubbing or edema. Neurovascularly intact NEUROLOGICAL: Alert and oriented x4.Normal gait and speech. Cranial nerves II through XII grossly intact. Good [id number]-ta-cwnl, good jawp-kx-krvy, strength equal bilaterally, no dysarthria or aphasia, sensation in tact to soft touch bilaterally, no visual changes, no facial droop SKIN: Warm, dry, no laceration, no petechiae, no rashes or lesions. Course Orders Ordered: ED Orders 06/03/24 10:52 XR chest 1V Stat EKG-12 Lead Stat 06/03/24 11:07 Complete Blood Count AUTO DIFF Stat Comprehensive Metabolic Panel Stat Lipase Stat Troponin & CK Cardiac Panel Stat Discontinued Medications Sodium Chloride (Normal Saline 0.9%) 1,000 mls @ 1,000 mls/hr IV BOLUS ONE Stop: 06/03/24 11:51 Last Infusion: 06/03/24 11:58 Dose: Infused Documented By: Admin: 06/03/24 11:19 Dose: 1,000 mls/hr Documented By: MEE Acetaminophen (Ofirmev) 1,000 mg in 100 mls @ 400 mls/hr IV NOW ONE Stop: 06/03/24 12:08 Last Infusion: 06/03/24 12:40 Dose: Infused Documented By: Admin: 06/03/24 12:04 Dose: 400 mls/hr Documented By: MEE Ketorolac Tromethamine (Ketorolac 30 Mg/Ml Vial) 15 mg IV NOW ONE Stop: 06/03/24 10:53 Last Admin: 06/03/24 11:19 Dose: 15 mg Documented By: MEE Vital Signs Vital signs: Vital Signs - 8 hr 06/03/24 11:08 06/03/24 11:29 06/03/24 11:30 Temperature Pulse Rate 68 68 Respiratory Rate 21 24 Blood Pressure 141/65 H Pulse Oximetry 94 93 Oxygen Delivery Method Room Air 06/03/24 11:30 06/03/24 12:00 06/03/24 12:00 Temperature Pulse Rate 63 54 L Respiratory Rate 22 Blood Pressure 136/64 Pulse Oximetry 94 93 Oxygen Delivery Method 06/03/24 12:30 06/03/24 12:30 Temperature 98.0 F Pulse Rate 62 Respiratory Rate Blood Pressure 139/63 Pulse Oximetry 94 Oxygen Delivery Method Medical Decision Making Lab Data 06/03/24 11:07 06/03/24 11:07 Labs: Lab Results 06/03/24 Range/Units 11:07 WBC 10.2 (4.5-11.0) X10^3/uL RBC 3.87 L (4.0-5.2) X10^6/uL Hgb 12.0 (12.0-16.0) g/dL Hct 35.4 L (36-46) % MCV 91.6 (80-100) fL MCH 30.9 (26-34) PG MCHC 33.8 (30-36) % RDW 12.9 (11.6-14.8) % Plt Count 288 (150-400) X10^3/uL Neut % (Auto) 55.7 (50-75) % Lymph % (Auto) 26.7 (25-40) % [place] % (Auto) 8.8 (3-14) % Eos % (Auto) 7.9 H (2-4) % Baso % (Auto) 0.9 (0-2) % Neut # (Auto) 5700 (2198-6640) /uL Lymph # (Auto) 2700 (2321-6334) /uL [place] # (Auto) 900 (0-900) /uL Eos # (Auto) 800 H (0-450) /uL Baso # (Auto) 100 (0-100) /uL Sodium 130 L (137-145) mmol/L Potassium 4.5 (3.4-5.1) mmol/L Chloride 98 (98-107) mmol/L Carbon Dioxide 21 L (22-32) mmol/L BUN 36 H (7-17) mg/dL Creatinine 0.96 (0.52-1.04) mg/dL Estimated GFR 59 L (>60) mL/min BUN/Creatinine Ratio 37.5 H (6-22) Glucose 115 H (80-110) mg/dL Calcium 9.8 (8.4-10.2) mg/dL Total Bilirubin 0.7 (0.2-1.3) mg/dL AST 24 (14-36) IU/L ALT 19 (<35) IU/L Alkaline Phosphatase 51 (38-126) U/L Total Creatine Kinase 105 (30-135) U/L Troponin I < 0.012 (0.01-0.034) ng/mL Total Protein 7.7 (6.3-8.2) g/dL Albumin 4.4 (3.5-5.0) g/dL Globulin 3.3 (1.7-4.1) g/dL Albumin/Globulin Ratio 1.3 (1.0-2.8) Lipase 214 (23-300) U/L ECG Data Attestation: I personally reviewed and interpreted this ECG as follows: Prior ECG tracings: available for review Interpretation: Normal sinus rhythm rate 59 KS interval 224 QRS [address] changes no T-wave inversions stable first-degree AV block similar to prior MDM Narrative Medical decision making narrative: Patient 84 female history of DVT chronically on Eliquis presenting today with ongoing headache. She reports that it has a band across her eyes and around her head. Tylenol not really helping. She has actually had a headache ongoing number of days even since she was discharged from the hospital. She is concerned that his blood pressure related. She has no other focal deficits. Headache is not any worse than normal she has no nausea or vomiting symptoms. Denies any sort of chest pain. She overall appears comfortable. Blood work has been reviewed overall reassuring and stable from prior, sodium is slightly low 130 it was previously 131 creatinine is improved at 0.96 troponin negative Chest x-ray has been reviewed and negative EKG reviewed stable Patient is given Toradol 1 dose which did not help with pain she is given IV Tylenol and fluids. Ultimately she decided that her headache may be an ocular migraine it has not improved it really has not worsened she has no new deficits no nausea or vomiting. She would like to leave and go to her wedding. I did discuss with her Toradol and Eliquis can increase bleeding to be extra careful recommended no further NSAIDs. Blood pressure actually improved to a systolic of 136 I do not think headache is related to blood pressure, she reports a band around her head I do think it is more of a tension headache Discharge Plan Departure Patient Disposition: Home Clinical Impression: Migraine Instructions: Migraine -- Adult Activity Restrictions/Additional Instructions: Congratulations on your wedding I do think that you have ocular migraines with a band around her head. Recommend avoiding screens stay hydrated You were given 1 dose of Toradol in the emergency department it can increase your bleeding with Eliquis however does wear off in about 8hours You may take Tylenol 1000 mg every 6 hours if needed for [id number] pain Please follow-up with your primary care provider in regards to your blood pressure and other symptoms Return to the emergency department if you should have new or worsening headache vomiting numbness tingling weakness Prescriptions: No Action Disabled Parking Permit 1 ea Not Applicable DAILY Qty: 1 0RF chlorthalidone 25 mg tablet 25 mg PO DAILY Qty: 90 3RF omeprazole 20 mg capsule,delayed release(DR/EC) 20 mg PO DAILY Qty: 90 3RF clonidine HCl 0.1 mg tablet 0.1 mg PO BID Qty: 180 3RF gabapentin 300 mg capsule 300 mg PO .COMPLEX Qty: 360 3RF Rx Instructions: take one capsule in the morning and three capsules at night. This script replaces the previous script. felodipine 10 mg tablet extended release 24 hr 10 mg PO DAILY Qty: 90 3RF Eliquis 5 mg tablet 5 mg PO BID Qty: 180 3RF Enbrel SureClick 50 mg/mL (1 mL) pen injector 50 mg SUBCUT QWEEK leflunomide 20 mg tablet 20 mg PO DAILY potassium chloride 20 mEq tablet extended release 20 meq PO 3XW Qty: 40 3RF losartan 100 mg tablet 100 mg PO DAILY Qty: 90 3RF fexofenadine [Sadie Allergy] 180 mg Tablet 180 mg PO DAILY PRN (Reason: Allergy Symptoms) multivitamin Capsule 1 cap PO QAM aspirin 81 mg Tablet,Delayed Release (Dr/Ec) 81 mg PO DAILY 90 Days Qty: 90 0RF atorvastatin 80 mg tablet 80 mg PO BEDTIME 90 Days Qty: 90 0RF cholecalciferol (vitamin D3) [Vitamin D3] 50 mcg (2,000 unit) Tablet 2,000 unit PO DAILY Referrals: Edilberto Adame MD [Primary Care Provider] - Stand Alone Forms: Patient Portal/API
--- NOTE | 2024-06-03 11:05 | EKG_ITS ---
[facility] [address] [place] [address] Test Date: 2024-06-03 Pat Name: Shiela Brady Department: [facility] Room: Gender: Female Fisher Pot: JAIDEN : 1940 Requested By: Order Number: [id number] Reading MD: Kirill Guzman Measurements Intervals [place] Rate: 59 P: 14 ND: 224 QRS: -20 QRSD: 102 T: 127 QT: 392 QTc: 388 Interpretive Statements Sinus bradycardia with 1st degree AV block Moderate voltage criteria for LVH, may be normal variant ( R in aVL , Ti product ) T wave abnormality, consider lateral ischemia Unchanged from previous Electronically Signed On 06-07-2024 17:22:25 PDT by Kirill Guzman
[2024-06-03 11:08] VITALS: PULSE 68; RESP 21; O2SAT 94
[2024-06-03 11:13] LABS: Add Manual Diff / Slide Review NO; Basophils Absolute Auto 100 /uL (0-100); Basophils Percent Auto 0.9 % (0-2); Eosinophils Absolute Auto 800 /uL (0-450); Eosinophils Percent Auto 7.9 % (2-4); Hematocrit 35.4 % (36-46); Lymphocytes Absolute Auto 2700 /uL (1100-4500); Lymphocytes Percent Auto 26.7 % (25-40); Mean Corpuscular HGB Conc 33.8 % (30-36); Mean Corpuscular Hemoglobin 30.9 PG (26-34); Mean Corpuscular Volume 91.6 fL (80-100); Monocytes Absolute Auto 900 /uL (0-900); Monocytes Percent Auto 8.8 % (3-14); Neutrophils Absolute Auto 5700 /uL (1500-7000); Neutrophils Percent Auto 55.7 % (50-75); Platelet Count 288 X10^3/uL (150-400); Red Blood Cell Count 3.87 X10^6/uL (4.0-5.2); Red Cell Distribution Width 12.9 % (11.6-14.8); White Blood Cell Count 10.2 X10^3/uL (4.5-11.0)
[2024-06-03] MEDS: KETOROLAC 30 MG/ML VIAL 15 MG IV (11:19)
[2024-06-03] MEDS: SODIUM CHLORIDE 0.9% 1,000 ML 1000 ML IV (11:19)
[2024-06-03 11:25] LABS: Alanine Aminotransferase 19 IU/L (<35); Albumin 4.4 g/dL (3.5-5.0); Albumin Globulin Ratio 1.3 (1.0-2.8); Alkaline Phosphatase 51 U/L (38-126); Aspartate Aminotransferase 24 IU/L (14-36); BUN Creatinine Ratio 37.5 (6-22); Bilirubin Total 0.7 mg/dL (0.2-1.3); Blood Urea Nitrogen 36 mg/dL (7-17); Calcium 9.8 mg/dL (8.4-10.2); Carbon Dioxide 21 mmol/L (22-32); Chloride 98 mmol/L (98-107); Creatine Kinase 105 U/L (30-135); Estimated Glomerular Filt Rate 59 mL/min (>60); Globulin 3.3 g/dL (1.7-4.1); Glucose 115 mg/dL (80-110); HEMOLYSIS 37 (0-50); Lipase 214 U/L (23-300); Potassium 4.5 mmol/L (3.4-5.1); Sodium 130 mmol/L (137-145); Total Protein 7.7 g/dL (6.3-8.2)
[2024-06-03 11:29] VITALS: PULSE 68; RESP 24; O2SAT 93
[2024-06-03 11:30] VITALS: BP 141/65; PULSE 63; O2SAT 94
[2024-06-03 11:37] LABS: Troponin I < 0.012 ng/mL (0.01-0.034)
[2024-06-03 12:00] VITALS: BP 136/64; PULSE 54; RESP 22; O2SAT 93
[2024-06-03] MEDS: ACETAMINOPHEN IV 1,000 MG/100 ML VIAL 400 MG IV (12:04)
[2024-06-03 12:30] VITALS: BP 139/63; PULSE 62; TEMP 36.7; O2SAT 94
== END 2024-06-03 12:35 | disposition home or self-care (01) ==
PROVIDERS: Emergency Provider Emergency Medicine; PCP Internal Medicine
DX: G43.909 Migraine, unspecified, not intractable, without status migrainosus (principal); Z86.73 Personal history of transient ischemic attack (TIA), and cerebral infarction without residual deficits; Z79.01 Long term (current) use of anticoagulants; Z79.899 Other long term (current) drug therapy
CPT/HCPCS: 36415; 71045; 80053; 82550; 83690; 84484; 85025; 93005; 96361; 96365; 96375; 99284; J0136; J1885

== ENCOUNTER 2024-10-16 14:26 | Outpatient (CLI) | payer MEDICARE, SELFPAY ==
[2024-05-31 16:19] VITALS: BMI 28.0
[2024-10-16] VITALS (13 sets, daily range): BP systolic 169–230; BP diastolic 76–100; PULSE 55–61; RESP 17–22; TEMP 36.7; O2SAT 94–99
--- NOTE | 2024-10-16 14:28 | DI.RAD.S_ITS ---
PROCEDURE: PAIN L INTERLAMINAR/CAUDAL INJ INDICATIONS: Caudal LEO COMPARISON: None. FINDINGS/IMPRESSION: Fluoroscopic spot filming was performed to verify placement of spinal needles at the sacrum level(s), as labeled on the films. Appropriate location(s) of the needle tip(s) was confirmed by injection of iodinated contrast. Lumbar pedicle screws. Dictated by: Buddy Ferrer M.D. on 10/17/2024 at 10:27 Approved by: Buddy Ferrer M.D. on 10/17/2024 at 10:28
[2024-10-16] MEDS: MIDAZOLAM 2 MG/2 ML VIAL IV (15:53)
[2024-10-16] MEDS: BETAMETHASONE 30 MG/5 ML MDV 12 MG INJ (15:59)
[2024-10-16] MEDS: DEXAMETHASONE 10 MG/ML VIAL INJ (15:59)
[2024-10-16] MEDS: iopamidoL 15 ML VIAL 2 ML INJ (16:01)
--- NOTE | 2024-10-16 16:25 | P.PCN_ITS ---
Date/Time/Diagnoses Date of procedure: 10/16/24 Time of procedure: 16:25 Pre-procedure diagnosis: 1. MULTILEVEL SPINAL STENOSIS 2. POST FUSION SYNDROME Post-procedure diagnosis: same Procedure Notes Procedure: 1. FLUOROSCOPICALLY GUIDED CONTRAST CONTROLLED CAUDAL EPIDURAL STEROID INJECTION, Indications: Shiela is referred by Dr. Adame for treatment of Multilevel Stenosis Physician: Armen Glaser Total Fluoroscopy time (seconds): 44 Total sedation minutes: 27 Complications: none Procedure in detail & Post-procedure care: FINDINGS Multilevel Stenosis S/p Lami/Fusion Syndrome DESCRIPTION OF PROCEDURE Fluoroscopically guided, contrast controlled caudal epidural steroid injection with Conscious Sedation Following review of allergy and review of potential side effects and c omplications, including but not necessarily limited to infection, allergic reaction, local tissue breakdown, temporary or permanent nerve injury, stroke, paralysis, and possible , the patient indicated that they understood and agreed to proceed. An informed consent document was signed by the patient, witnessed by a nurse, and placed in the patient's chart. Additionally, other treatment options including medications, modalities, and physical therapy were reviewed with the patient. After review of previous anaesthesic history and IV conscious sedation the patient was deemed safe to proceed with today?s procedure with IV conscious sedation as ASA class II designation. Safety time-out was performed to confirm patient ID, procedure to be performed and site of procedure. IV sedation was accomplished with a combination of 2mg of Versed administered by the RN after DO order, titrated to patient comfort during the course of the procedure while the patient remained responsive to all verbal commands In the prone position, following sterile prep and drape of the lumbar region, the sacral hiatus was identified fluoroscopically. The skin was anesthetized via a 25-gauge, 1.5-inch needle with approximately 2cc of 1% lidocaine solution. At this point, a 25-gauge, 3inch needle was atraumatically introduced and advanced under fluoroscopic guidance to the corresponding sacral hiatus and entering the sacral canal. Following negative aspiration, injection of approximately 0.3cc of Isovue 300 confirmed interarticular placement without vascular uptake. Radiological data, including multiple fluoroscopic views of the lumbosacral spine, reveal a spinal needle in the sacral canal through the sacral hiatus. Subsequent views show flow of contrast material superiorly and inferiorly in the sacral canal without vascular or intrathecal uptake. At this point, a total of 5cc including 3cc or 12mg of betamethasone, 10mg dexamethasone and 2cc of 1% lidocaine solution was injected without complication. The patient tolerated the procedure well without signs or symptoms of complications prior to transfer to the recovery area continued monitoring without incident. The patient was then transferred to the recovery area where they were observed for an appropriate period of time after the injection. The patient reported a VAS score of 10 prior to the procedure and a post-procedure VAS of 2. POST OP INSTRUCTIONS The patient was provided a Pain Log to continue to record their response to the target-specific procedure prior to their follow-up visit with the referring physician. Additionally, specific post-injection care instructions and a contact number to our office were provided if concerns arise regarding possible complications associated with the procedure are suspected.
== END 2024-10-16 16:45 | disposition home or self-care (01) ==
LOC: RAD 14:27
PROVIDERS: PCP Internal Medicine; Referring Provider Physical Medicine & Rehabilitation; Visit Provider Physical Medicine & Rehabilitation
DX: M96.1 Postlaminectomy syndrome, not elsewhere classified (principal); Z98.1 Arthrodesis status; M54.16 Radiculopathy, lumbar region; M48.061 Spinal stenosis, lumbar region without neurogenic claudication
CPT/HCPCS: 62323; 99152; 99153; J0702; J1100; J2250

== ENCOUNTER → 2024-12-13 17:04 | Outpatient (CLI) | payer MEDICARE, SELFPAY ==
[2024-12-11 09:41] VITALS: BMI 28.0
--- NOTE | 2024-12-13 17:07 | DI.RAD.S_ITS ---
PROCEDURE: XR HIP W PEL IF DONE RT 2V INDICATIONS: right hip pain TECHNIQUE: AP pelvis with lateral view(s) of the right hip(s). COMPARISON: [facility], CR, XR LUMBAR SPINE MIN 4V, 11/23/2023, 10:54. CT, CT PEL WO CON, 08/11/2021, 13:18. FINDINGS: Bones: No fractures or dislocations. Pelvic ring appears intact. No suspicious bony lesions. Partially visualized lower lumbar fusion. Moderate bilateral degenerative hip joint space narrowing left greater than right. Minimal periarticular osteophytes. No distinct erosions. Soft tissues: The visualized bowel gas pattern is normal. No suspicious soft tissue calcifications. IMPRESSION: Degenerative changes within the lower lumbar spine as well as hips. Dictated by: Bryanna Hernadez M.D. on 12/14/2024 at 10:27 Approved by: Bryanna Hernadez M.D. on 12/14/2024 at 10:30
== END ==
PROVIDERS: PCP Internal Medicine; Referring Provider Internal Medicine; Visit Provider Internal Medicine
DX: M25.551 Pain in right hip (principal); M47.816 Spondylosis without myelopathy or radiculopathy, lumbar region; Z98.1 Arthrodesis status
CPT/HCPCS: 73502

== ENCOUNTER 2025-01-08 14:23 | Outpatient (CLI) | payer MEDICARE, SELFPAY ==
[2024-12-11 09:41] VITALS: BMI 28.0
[2025-01-08] VITALS (9 sets, daily range): BP systolic 145–182; BP diastolic 67–77; PULSE 61–76; RESP 16–20; TEMP 36.6; O2SAT 93–99
[2025-01-08] MEDS: MIDAZOLAM 2 MG/2 ML VIAL IV (15:00)
[2025-01-08] MEDS: iopamidoL 15 ML VIAL 3 ML INJ (15:03)
[2025-01-08] MEDS: BETAMETHASONE 30 MG/5 ML MDV 12 MG INJ (15:03)
[2025-01-08] MEDS: BUPIVACAINE 0.25% (PF) VIAL 2 ML INJ (15:04)
[2025-01-08] MEDS: DEXAMETHASONE 10 MG/ML VIAL INJ (15:04)
--- NOTE | 2025-01-08 15:32 | P.PCN_ITS ---
Date/Time/Diagnoses Date of procedure: 01/08/25 Time of procedure: 15:32 Pre-procedure diagnosis: FORAMINAL STENOSIS WITH LE SYMPTOMS Post-procedure diagnosis: same Procedure Notes Procedure: 1. FLUOROSCOPICALLY GUIDED CONTRAST CONTROLLED TRANSFORAMINAL EPIDURAL STEROID INJECTION - RIGHT L5/S1 TFESI Indications: Shiela is referred by Dr. Adame for treatment of Foraminal Stenosis with Right LE Symptoms Physician: Armen Glaser Total Fluoroscopy time (seconds): 21 Total sedation minutes: 28 Complications: none Procedure in detail & Post-procedure care: FINDINGS Foraminal Nerve Root Compression secondary to disc disease and facet hypertrophy DESCRIPTION OF PROCEDURE Following review of allergy and review of potential side effects and complications, including, but not necessarily limited to, infection, allergic re action, local tissue breakdown, stroke, temporary or permanent nerve injury, paralysis, and possible , the patient indicated that the patient understood and agreed to proceed. An informed consent document was signed by the patient, witnessed by a nurse, and placed in the patient's chart. Additionally, other treatment options including medications, modalities, and physical therapy were reviewed with the patient. After review of previous anaesthesic history and IV conscious sedation the patient was deemed safe to proceed with today?s procedure with IV conscious sedation as ASA class II designation. Safety time-out was performed to confirm patient ID, procedure to be performed and site of procedure. IV sedation was accomplished with a combination of 2mg of Versed was administered by the RN after DO order, titrated to patient comfort during the course of the procedure while the patient remained responsive to all verbal commands In the prone position following sterile prep and drape of the lumbar region, the right L5/S1 posterior neuroforamen was identified fluoroscopically. The skin was anesthetized via a 25-gauge 1.5-inch needle with 1% lidocaine solution. At this point, a 25-gauge 3.5-inch spinal needle was atraumatically introduced and advanced under fluoroscopic guidance through the posterior right L5/S1 neuroforamen to approximately the anterior aspect of the canal. Depth was confirmed on lateral view. Following negative aspiration, injection of approximately 1.5cc of Isovue 200 under live fluoroscopy in the AP view confirmed excellent flow along the nerve root, into the epidural space without vascular or intrathecal uptake observed Radiological data, including multiple fluoroscopic views of the lumbosacral spine, reveal a spinal needle at the right L5/S1 posterior neuroforamen. Subsequent views show flow of contrast material flowing superiorly and inferiorly along the nerve root confirming epidural flow. Subsequently, a test dose of 1.5 cc of 1% lidocaine solution was administered and patient was observed for two minutes for signs or symptoms of complications, including abdominal pain, shortness of breath, bilateral upper or lower extrem ity weakness, nausea and vomiting, prior to steroid injection. At this point, a total of 2cc or 10mg of dexamethasone and 6mg of betamethasone was injected without incident. The procedure tolerated the procedure well without signs or symptoms of complications prior to transfer to the recovery area continued monitoring without incident. The patient was then transferred to the recovery area where they were observed for an appropriate time after the injection. The patient reported a VAS score of 9 prior to the procedure and a post- procedure VAS of 1. POST OP INSTRUCTIONS The patient was provided a Pain Log to continue to record their response to the target-specific procedure prior to follow-up visit with their referring physician. Additionally, specific post-injection care instructions and a contact number to our office were provided if concerns arise regarding possible complications associated with the procedure are suspected.
--- NOTE | 2025-01-08 15:36 | DI.RAD.S_ITS ---
PROCEDURE: PAIN L/S TRANSFORAMINAL INJECT INDICATIONS: Right L5/S1 TFESI COMPARISON: [facility], , PAIN L INTERLAMINAR/CAUDAL INJ, 10/16/2024, 15:59. FINDINGS/IMPRESSION: Fluoroscopic spot filming was performed to verify placement of spinal needles at the L5-S1 level(s), as labeled on the films. Appropriate location(s) of the needle tip(s) was confirmed by injection of iodinated contrast. Dictated by: Bryanna Hernadez M.D. on 01/09/2025 at 17:00 Approved by: Bryanna Hernadez M.D. on 01/09/2025 at 17:00
== END 2025-01-08 15:43 | disposition home or self-care (01) ==
LOC: RAD 14:25
PROVIDERS: PCP Internal Medicine; Referring Provider Physical Medicine & Rehabilitation; Visit Provider Physical Medicine & Rehabilitation
DX: M48.07 Spinal stenosis, lumbosacral region (principal); M51.17 Intervertebral disc disorders with radiculopathy, lumbosacral region; M47.27 Other spondylosis with radiculopathy, lumbosacral region
CPT/HCPCS: 64483; 99152; 99153; J0702; J1100; J2250; J3490

== ENCOUNTER → 2025-01-22 09:42 | Outpatient (CLI) | payer MEDICARE, SELFPAY ==
[2024-12-11 09:41] VITALS: BMI 28.0
[2025-01-22 10:09] LABS: Hematocrit 33.5 % (36-46); Hemoglobin 11.1 g/dL (12.0-16.0); Mean Corpuscular HGB Conc 33.3 % (30-36); Mean Corpuscular Hemoglobin 30.6 PG (26-34); Mean Corpuscular Volume 92.1 fL (80-100); Platelet Count 357 X10^3/uL (150-400); Red Blood Cell Count 3.64 X10^6/uL (4.0-5.2); Red Cell Distribution Width 13.8 % (11.6-14.8); White Blood Cell Count 8.9 X10^3/uL (4.5-11.0)
[2025-01-22 10:20] LABS: Hemoglobin A1C% w Est Avg Glu 5.7 % (4.0-6.0)
[2025-01-22 10:30] LABS: Erythrocyte Sedimentation Rate 45 MM/HR (0-20)
[2025-01-22 10:58] LABS: Alanine Aminotransferase 23 IU/L (<35); Albumin 3.8 g/dL (3.5-5.0); Albumin Globulin Ratio 1.3 (1.0-2.8); Alkaline Phosphatase 58 U/L (38-126); Aspartate Aminotransferase 32 IU/L (14-36); BUN Creatinine Ratio 22.4 (6-22); Bilirubin Total 0.7 mg/dL (0.2-1.3); Blood Urea Nitrogen 24 mg/dL (7-17); Calcium 9.9 mg/dL (8.4-10.2); Carbon Dioxide 25 mmol/L (22-32); Chloride 102 mmol/L (98-107); Cholesterol 142 mg/dL (140-199); Estimated Glomerular Filt Rate 51 mL/min (>60); Glucose 130 mg/dL (80-110); HDL Cholesterol 48 mg/dL (40-60); HEMOLYSIS < 15 (0-50); LDL Cholesterol Calculated 51 mg/dL (<100); Potassium 3.9 mmol/L (3.4-5.1); Sodium 138 mmol/L (137-145); Total Protein 6.8 g/dL (6.3-8.2); Triglycerides 213 mg/dL (35-150)
[2025-01-22 11:22] LABS: TSH w/ Reflex to FT4 0.51 uIU/mL (0.47-4.68)
== END ==
LOC: LAB 09:43
PROVIDERS: PCP Internal Medicine; Referring Provider Internal Medicine; Visit Provider Internal Medicine
DX: M06.9 Rheumatoid arthritis, unspecified (principal); R73.01 Impaired fasting glucose; N18.31 Chronic kidney disease, stage 3a
CPT/HCPCS: 36415; 80053; 80061; 83036; 84443; 85027; 85651; 86140

== ENCOUNTER → 2025-02-20 11:23 | Outpatient (CLI) | payer MEDICARE, SELFPAY ==
[2024-12-11 09:41] VITALS: BMI 28.0
--- NOTE | 2025-02-20 11:25 | DI.RAD.S_ITS ---
PROCEDURE: XR LUMBAR SPINE 6V W BENDING INDICATIONS: left sciatica/fall TECHNIQUE: 5 views of the lumbar spine acquired, including flexion and extension views. COMPARISON: [facility], CR, XR LUMBAR SPINE MIN 4V, 11/23/2023, 10:54. FINDINGS: Lumbar spine curvature and alignment: Moderate levoscoliotic curve of the lower thoracic and lumbar spine is unchanged. 1.2 cm of L4 anterior subluxation again noted Bones: There are no osseous abnormalities. Disc spaces: L3-4 and L4-5 anterior/posterior fusion provided by interbody graft pedicle screws and short interbody struts again noted. Moderate erosion between the L4-5 graft and the anterior superior L5 endplate suggest the possibility of discitis. Severe T10-11 through L2-3 and mild L5-S1 degenerative disc disease again noted. Severe L2-3 through L5-S1 degenerative facet disease Soft tissues: No soft tissue swelling, calcification or mass. IMPRESSION: L3-4 and L4-5 anterior/posterior fusion. There is 1.2 cm L4 anterior subluxation and moderate erosive changes adjacent to the interbody graft in this region. This suggests the possibility of infection or other complication. Suggest correlation with inflammatory serologies and lumbar MRI with gadolinium Dictated by: Robert Borden M.D. on 02/21/2025 at 12:23 Approved by: Robert Borden M.D. on 02/21/2025 at 12:28
== END ==
PROVIDERS: PCP Internal Medicine; Referring Provider Internal Medicine; Visit Provider Internal Medicine
DX: T84.226A Displacement of internal fixation device of vertebrae, initial encounter (principal); M54.32 Sciatica, left side; R20.8 Other disturbances of skin sensation; Z98.1 Arthrodesis status
CPT/HCPCS: 72114

== ENCOUNTER → 2025-02-20 16:54 | Outpatient (CLI) | payer MEDICARE, SELFPAY ==
[2024-12-11 09:41] VITALS: BMI 28.0
--- NOTE | 2025-02-20 16:55 | DI.MRI.S_ITS ---
PROCEDURE: MR LUMBAR SPINE WO CON INDICATIONS: left sciatica/fall TECHNIQUE: Noncontrast sagittal T1 spin echo and T2 fast echo, sagittal STIR, and T2 fast spin echo through the lumbar spine. In cases with scoliosis, additional coronal T2 fast spin echo may be performed. COMPARISON: [facility], CR, XR LUMBAR SPINE 6V W BENDING, 02/20/2025, 11:28. [facility], MR, MR LUMBAR SPINE WO CON, 04/02/2020, 15:14. FINDINGS: Image quality: There is artifact associated with the metallic hardware. This examination is limited by involuntary motion artifact. Alignment and Curvature: Minimal retrolisthesis can be seen at T11-T12, T12-L1, and L1-L2. There is grade 2 anterolisthesis at the L4-L5 level. There is moderate levoconvex thoracolumbar scoliosis. Bone Marrow: Marrow is of normal overall signal. No acute vertebral body compression fractures. Spinal Cord: Conus medullaris terminates at the L1 level. Visualized cord demonstrates normal signal and size. Paraspinous Soft Tissues: No paravertebral masses. There are water signal bilateral renal cysts. Postoperative changes are seen, with bilateral pedicle screws L3 through L5. There are vertical fixation rods. Disc spacers are seen at L3-L4 and L4-L5. There has been removal of portions of the posterior elements. T11-T12: At least moderate loss of disc height and disc signal can be seen. Reactive marrow endplate changes are seen, which demonstrate mixed T1 weighted and T2-weighted signal, and are attributed to a combination of edema and fatty metaplasia (Modic type I and Modic type II changes). Moderate generalized disc bulge is seen. There is a superimposed central disc osteophyte protrusion. At least moderate bilateral neural foraminal narrowing can be seen. At least moderate central canal narrowing is seen. These imaging findings have progressed compared to the prior study. T12-L1: Moderate to severe loss of disc height and disc signal can be seen. Reactive marrow endplate changes are seen, which are hyperintense on T1-weighted and T2-weighted imaging and most consistent with fatty metaplasia (Modic type II changes). Moderate to severe loss of disc height and disc signal can be seen on the right-side. Bridging endplate osteophytes can be seen on the right. Moderate generalized disc bulge is seen. There is moderate right-sided and mild left-sided facet hypertrophy. There is mild left-sided and at least moderate right-sided neural foraminal narrowing. Moderate central canal narrowing is seen. When comparison is made with the prior images, these findings are similar. L1-L2: Mild loss of disc height is seen. Loss of disc signal is seen. Moderate generalized disc bulge is seen. There is a superimposed central disc protrusion. Moderate facet joint hypertrophy is seen. There is a remote Schmorl's node at the inferior endplate of L1. Moderate facet joint hypertrophy is seen. There is at least moderate left-sided and moderate right-sided neural foraminal narrowing. Mild to moderate central canal narrowing is seen. These imaging findings have progressed compared to the prior study. L2-L3: At least moderate loss of disc height and disc signal can be seen. Reactive marrow endplate changes are seen, which are hyperintense on T1-weighted and T2-weighted imaging and most consistent with fatty metaplasia (Modic type II changes). Moderate generalized disc bulge is seen. There is a superimposed central disc osteophyte protrusion. Moderate facet joint hypertrophy is seen. Moderate bilateral neural foraminal narrowing is seen. No significant central canal narrowing is seen. When comparison is made with the prior images, these findings are similar. L3-L4: Mild generalized disc bulge is seen. At least moderate facet hypertrophy is seen. There is moderate left-sided and no right-sided neural foraminal narrowing. Mild to moderate central canal narrowing is seen. The degree of left-sided neural foraminal narrowing appears worse than in 2020. L4-L5: At least moderate loss of disc height is seen. Moderate generalized disc bulge is seen. There is disc uncovering seen posteriorly. At least moderate facet hypertrophy can be seen. There is at least moderate left-sided and moderate right-sided neural foraminal narrowing. At least moderate central canal narrowing is seen at this level. These degenerative changes overall appear mildly worse than in 2020. L5-S1: Mild loss of disc height is seen. Loss of disc signal is seen. Mild generalized disc bulge is seen. There is at least moderate right-sided and moderate left-sided facet hypertrophy. No significant neural foraminal or central canal narrowing can be seen. When comparison is made with the prior images, these findings are similar. IMPRESSION: No acute abnormality is seen. Multiple levels of lumbar spine degenerative change can be seen, which are overall mildly of progressed compared to 2020. There is moderate levoconvex thoracolumbar scoliosis. L3 through L5 postoperative change. Dictated by: Vito Johnson M.D. on 02/21/2025 at 13:00 Approved by: Vito Johnson M.D. on 02/21/2025 at 13:02
== END ==
PROVIDERS: PCP Internal Medicine; Referring Provider Internal Medicine; Visit Provider Internal Medicine
DX: M54.32 Sciatica, left side (principal); M47.816 Spondylosis without myelopathy or radiculopathy, lumbar region; M47.817 Spondylosis without myelopathy or radiculopathy, lumbosacral region; M41.9 Scoliosis, unspecified; M54.9 Dorsalgia, unspecified; G89.29 Other chronic pain; N28.1 Cyst of kidney, acquired; Z98.1 Arthrodesis status
CPT/HCPCS: 72114; 72148

== ENCOUNTER 2025-03-12 15:01 | Outpatient (CLI) | payer MEDICARE, SELFPAY ==
[2024-12-11 09:41] VITALS: BMI 28.0
[2025-03-12] VITALS (8 sets, daily range): BP systolic 150–187; BP diastolic 66–95; PULSE 75–89; RESP 14–16; TEMP 36.7; O2SAT 92–98
[2025-03-12] MEDS: MIDAZOLAM 2 MG/2 ML VIAL IV (16:00)
[2025-03-12] MEDS: iopamidoL 15 ML VIAL 3 ML INJ (16:04)
[2025-03-12] MEDS: DEXAMETHASONE 10 MG/ML VIAL INJ (16:04)
[2025-03-12] MEDS: BUPIVACAINE 0.25% (PF) VIAL 2 ML INJ (16:05)
[2025-03-12] MEDS: BETAMETHASONE 30 MG/5 ML MDV 12 MG INJ (16:05)
--- NOTE | 2025-03-12 16:16 | P.PCN_ITS ---
Date/Time/Diagnoses Date of procedure: 03/12/25 Time of procedure: 16:17 Pre-procedure diagnosis: 1. FORAMINAL STENOSIS WITH LE SYMPTOMS Post-procedure diagnosis: same Procedure Notes Procedure: 1. FLUOROSCOPICALLY GUIDED CONTRAST CONTROLLED TRANSFORAMINAL EPIDURAL STEROID INJECTION - Left L5/S1 Indications: Shiela is referred by Dr. Adame for treatment of Foraminal Stenosis with Left LE Symptoms Physician: Armen Glaser Total Fluoroscopy time (seconds): 9 Total sedation minutes: 10 Complications: none Procedure in detail & Post-procedure care: FINDINGS Foraminal Nerve Root Compression secondary to disc disease and facet hypertrophy DESCRIPTION OF PROCEDURE Following review of allergy and review of potential side effects and complications, including, but not necessarily limited to, infection, allergic reaction, local tissue breakdown, stroke, temporary or permanent nerve injury, paralysis, and possible , the patient indicated that the patient understood and agreed to proceed. An informed consent document was signed by the patient, witnessed by a nurse, and placed in the patient's chart. Additionally, other treatment options including medications, modalities, and physical therapy were reviewed with the patient. After review of previous anaesthesic history and IV conscious sedation the patient was deemed safe to proceed with today?s procedure with IV conscious sedation as ASA class II designation. Safety time-out was performed to confirm patient ID, procedure to be performed and site of procedure. IV sedation was accomplished with a combination of 2mg of Versed was administered by the RN after DO order, titrated to patient comfort during the course of the procedure while the patient remained responsive to all verbal commands In the prone position following sterile prep and drape of the lumbar region, the Left L5/S1 posterior neuroforamen was identified fluoroscopically. The skin was anesthetized via a 25-gauge 1.5-inch needle with 1% lidocaine solution. At this point, a 25-gauge 3.5-inch spinal needle was atraumatically introduced and advanced under fluoroscopic guidance through the posterior Left L5/S1 neuroforamen to approximately the anterior aspect of the canal. Depth was confirmed on lateral view. Following negative aspiration, injection of approximately 1.5 cc of Isovue 200 under live fluoroscopy in the AP view confirmed excellent flow along the nerve root, into the epidural space without vascular or intrathecal uptake observed Radiological data, including multiple fluoroscopic views of the lumbosacral spine, reveal a spinal needle at the Left L5/S1 posterior neuroforamen. Subsequent views show flow of contrast material flowing superiorly and inferiorly along the nerve root confirming epidural flow. Subsequently, a test dose of 1.5 cc of 1% lidocaine solution was administered and patient was observed for two minutes for signs or symptoms of complications, including abdominal pain, shortness of breath, bilateral upper or lower extremity weakness, nausea and vomiting, prior to steroid injection. At this point, a total of 3cc or 10mg of dexamethasone and 12mg of betamethasone was injected without incident. The procedure tolerated the procedure well without signs or symptoms of complications prior to transfer to the recovery area continued monitoring without incident. The patient was then transferred to the recovery area where they were observed for an appropriate time after the injection. The patient reported a VAS score of 7 prior to the procedure and a post-procedure VAS of 0. POST OP INSTRUCTIONS The patient was provided a Pain Log to continue to record their response to the target-specific procedure prior to follow-up visit with their referring physi talia. Additionally, specific post-injection care instructions and a contact number to our office were provided if concerns arise regarding possible complications associated with the procedure are suspected.
== END 2025-03-12 16:30 | disposition home or self-care (01) ==
PROVIDERS: PCP Internal Medicine; Referring Provider Physical Medicine & Rehabilitation; Visit Provider Physical Medicine & Rehabilitation
DX: M48.07 Spinal stenosis, lumbosacral region (principal); M51.17 Intervertebral disc disorders with radiculopathy, lumbosacral region; M47.27 Other spondylosis with radiculopathy, lumbosacral region
CPT/HCPCS: 64483; 99152; J0702; J1100; J2250; J3490

== ENCOUNTER → 2025-03-27 09:36 | Outpatient (CLI) | payer MEDICARE, SELFPAY ==
[2024-12-11 09:41] VITALS: BMI 28.0
--- NOTE | 2025-03-27 09:37 | DI.RAD.S_ITS ---
PROCEDURE: XR HIP W PEL IF DONE RT 2V INDICATIONS: right hip pain, fall TECHNIQUE: AP pelvis with lateral view(s) of the right hip(s). COMPARISON: [facility], , XR HIP W PEL IF DONE RT 2V, 12/13/2024, 17:28. FINDINGS: Bones: No fractures or dislocations. 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 Pelvic ring appears intact. No suspicious bony lesions. Soft tissues: The visualized bowel gas pattern is normal. No suspicious soft tissue calcifications. IMPRESSION: Degenerative change of the right hip without evidence of acute bony abnormality. Dictated by: Dre Glez M.D. on 03/28/2025 at 1:58 Approved by: Dre Glez M.D. on 03/28/2025 at 1:59
== END ==
PROVIDERS: PCP Internal Medicine; Referring Provider Internal Medicine; Visit Provider Internal Medicine
DX: M25.551 Pain in right hip (principal)
CPT/HCPCS: 73502

== ENCOUNTER → 2025-05-15 15:07 | Outpatient (CLI) | payer MEDICARE, SELFPAY ==
[2024-12-11 09:41] VITALS: BMI 28.0
--- NOTE | 2025-05-15 15:11 | DI.MG.S_ITS ---
MM screening mammo implant BI: 05/15/2025. BI-RADS: 2 CLINICAL: 85-year old female for bilateral screening mammogram. Tyrer-Cuzick lifetime risk of 0.2%. No personal or first-degree family history of breast cancer. The patient has bilateral implants. PRIOR EXAMS 09/19/2023, 10/10/2020, 09/20/2019, 09/02/2017. MAMMOGRAPHY TECHNIQUE: 2D and 3D (tomosynthesis) digital mammographic views obtained, with additional images as needed for full coverage. Current study was also evaluated with a Computer Aided Detection (CAD) system. DENSITY B. There are scattered areas of fibroglandular density. IMPLANTS Right: There is a retroglandular silicone implant. Capsular calcification present. Left: There is a probably-ruptured, retroglandular, silicone implant. MAMMOGRAPHY FINDINGS Right: Silicone implant on the right. Left: Probably-ruptured silicone implant on the left. Bilateral: Typically-benign vascular calcifications noted. IMPRESSION: * No evidence of malignancy with benign findings. RECOMMENDATIONS Bilateral * Annual screening mammography. OVERALL ASSESSMENT CATEGORY BI-RADS-2: Benign. [employer] recommends annual screening mammography beginning at age 40 for women with average risk of breast cancer. ELECTRONICALLY SIGNED: Johan Bergeron M.D. on 05/16/2025 at 11:02:49 AM PT Interpreting Station ID: [id number]
== END ==
LOC: MAMMO 15:09
PROVIDERS: PCP Internal Medicine; Referring Provider Internal Medicine; Visit Provider Internal Medicine
DX: Z12.31 Encounter for screening mammogram for malignant neoplasm of breast (principal); R92.1 Mammographic calcification found on diagnostic imaging of breast; Z98.82 Breast implant status
CPT/HCPCS: 77063; 77067

== ENCOUNTER → 2025-05-27 10:17 | Outpatient (CLI) | payer MEDICARE, SELFPAY ==
[2024-12-11 09:41] VITALS: BMI 28.0
--- NOTE | 2025-05-27 10:20 | DI.NM.S_ITS ---
PROCEDURE: NM BONE SCAN LIMITED AREA RADIOPHARMACEUTICAL: 22.0 mCi Tc-99m MDP IV. INDICATIONS: right hip pain,r/o fracture,metastases TECHNIQUE: Multiple delayed bone scintigrams of the body part of interest were obtained approximately 3 hours after intravenous injection of Tc-99m MDP. COMPARISON: [facility], CR, XR HIP W PEL RT 2V, 03/27/2025, 9:36. FINDINGS: No suspicious increased uptake within the right hip or visualized osseous structures. Increased uptake involving the sacroiliac joints and lower lumbar spine may be degenerative in etiology. IMPRESSION: No significant abnormalities seen. Dictated by: Gallo Wilkinson M.D. on 05/27/2025 at 16:23 Approved by: Gallo Wilkinson M.D. on 05/27/2025 at 16:25
== END ==
PROVIDERS: PCP Internal Medicine; Referring Provider Internal Medicine; Visit Provider Internal Medicine
DX: M06.9 Rheumatoid arthritis, unspecified (principal); M25.551 Pain in right hip
CPT/HCPCS: 78300; A9503

== ENCOUNTER 2025-10-10 09:49 | Emergency (ER) | payer MEDICARE, SELFPAY ==
[2024-12-11 09:41] VITALS: BMI 28.0
[2025-10-10 09:52] VITALS: BP 137/63; PULSE 76; RESP 18; TEMP 37.4; O2SAT 98; BMI 29.2
--- NOTE | 2025-10-10 10:41 | ED.SKABFB ---
HPI - Skin/Abscess/Foreign Bdy General Chief complaint: Skin/Abscess/Foreign Body Stated complaint: Infection In nose . Time Seen by Provider: 10/10/25 10:24 Source: patient Mode of arrival: Wheelchair Limitations: no limitations Related Data Home Medications ?Medication ?Instructions ?Recorded ?Confirmed multivitamin 1 cap PO QAM 01/14/19 07/11/25 cholecalciferol (vitamin D3) 50 2,000 unit PO DAILY 04/02/20 07/11/25 mcg (2,000 unit) tablet (Vitamin D3) leflunomide 20 mg tablet 20 mg PO DAILY 03/22/22 07/11/25 etanercept 50 mg/mL (1 mL) 50 mg SUBCUT QWEEK 09/12/24 07/11/25 subcutaneous syringe (Enbrel) Previous Rx's ?Medication ?Instructions ?Recorded Disabled Parking Permit 1 ea Not Applicable DAILY #1 ea 05/27/23 potassium chloride 20 mEq 20 meq PO DAILY #90 tabs 11/05/24 tablet,extended release(part/cryst) gabapentin 300 mg capsule 300 mg PO .COMPLEX #360 caps 12/06/24 omeprazole 20 mg capsule,delayed 20 mg PO DAILY #90 caps 12/06/24 release losartan 100 mg tablet 100 mg PO DAILY #90 tabs 01/28/25 aspirin 81 mg tablet,delayed 81 mg PO DAILY #90 tabs 01/31/25 release apixaban 5 mg tablet (Eliquis) 5 mg PO BID #180 tabs 03/11/25 atorvastatin 80 mg tablet 80 mg PO BEDTIME 90 days #90 tabs 04/01/25 felodipine 10 mg tablet,extended 10 mg PO DAILY #90 tabs 04/01/25 release 24 hr chlorthalidone 25 mg tablet 25 mg PO DAILY #90 tabs 04/10/25 minoxidil 10 mg tablet 20 mg (2 x 10 mg) PO DAILY #180 04/10/25 tabs prednisone 10 mg tablet See Rx Instructions .Route 08/12/25 .COMPLEX #20 tabs Allergies Allergy/AdvReac Type Severity Reaction Status Date / Time atracurium (ATRACURIUM) Allergy Unknown Verified 10/10/25 09:53 mivacurium (MIVACURIUM) Allergy Unknown Verified 10/10/25 09:53 succinylcholine Allergy Unknown Verified 10/10/25 09:53 (SUCCINYLCHOLINE) enalaprilat (From VASOTEC) AdvReac Mild cough Verified 10/10/25 09:53 Patient History Medical History (Updated 07/11/25 @ 11:24 by Edilberto Adame MD) Venous (peripheral) insufficiency Lumbar radiculopathy Left sided sciatica Obstructive sleep apnea History of DVT (deep vein thrombosis) Cerebrovascular disease Lumbosacral radiculopathy at L5 Stage 3a chronic kidney disease (CKD) Family history of colon cancer in father History of colonic polyps GERD without esophagitis Mixed hyperlipidemia Essential hypertension Chronic anticoagulation History of pulmonary embolism Carpal tunnel syndrome Vision disorder Hearing loss Rheumatoid arthritis (~2001) Osteoarthritis Sleep apnea (~2009) Scoliosis Osteoporosis (~2019) Chronic back pain Mumps Measles Chicken pox Cataracts, bilateral (~2019) Skin cancer Uterine prolapse (~2019) History of hyperlipidemia History of pulmonary embolism Hypertension Surgical History Status post lumbar spinal fusion Anesthesia History of hysterectomy (~2020) Amputated toe of right foot (~2020) History of breast augmentation History of cholecystectomy History of hand surgery Yeboah's neuroma Melanoma (~1989) History of shoulder surgery (~2008) H/O: knee surgery History of back surgery No significant past surgical history Family History Mother Hypertension TIA (transient ischemic attack) Social History details: (Bill), grown children household members: significant other Smoking Status: Never smoker Smoking Status: Never smoker alcohol intake frequency: a few times a week Exam Initial Vital Signs Initial Vital Signs: Vital Signs Temperature 99.4 F 10/10/25 09:52 Pulse Rate 76 10/10/25 09:52 Respiratory Rate 18 10/10/25 09:52 Blood Pressure 137/63 10/10/25 09:52 Pulse Oximetry 98 10/10/25 09:52 Oxygen Delivery Method Room Air 10/10/25 09:52 Course Course Course Narrative: 1041 discussed case with transfer center who will reach out to plastic surgeon 1255 Plastic surgery, Dr. Nnia, graft reconstruction appears good, appears to be cellulitic recommend Keflex Vital Signs Vital signs: Vital Signs - 8 hr 10/10/25 09:52 Temperature 99.4 F Pulse Rate 76 Respiratory Rate 18 Blood Pressure 137/63 Pulse Oximetry 98 Oxygen Delivery Method Room Air Discharge Plan Departure Prescriptions: No Action Disabled Parking Permit 1 ea Not Applicable DAILY Qty: 1 0RF potassium chloride 20 mEq tablet,ER particles/crystals 20 meq PO DAILY Qty: 90 3RF gabapentin 300 mg capsule 300 mg PO .COMPLEX Qty: 360 3RF Rx Instructions: take one capsule in the morning and three capsules at night. This script replaces the previous script. omeprazole 20 mg capsule,delayed release(DR/EC) 20 mg PO DAILY Qty: 90 3RF losartan 100 mg tablet 100 mg PO DAILY Qty: 90 3RF aspirin 81 mg tablet,delayed release (DR/EC) 81 mg PO DAILY Qty: 90 3RF Eliquis 5 mg tablet 5 mg PO BID Qty: 180 3RF felodipine 10 mg tablet extended release 24 hr 10 mg PO DAILY Qty: 90 3RF atorvastatin 80 mg tablet 80 mg PO BEDTIME 90 Days Qty: 90 3RF prednisone 10 mg tablet See Rx Instructions .Route .COMPLEX Qty: 20 2RF Rx Instructions: 4 tablets daily for 2 days, then 3 tablets daily for 2 days, then 2 tablets daily for 2 days, then 1 tablet daily for 2 days then stop; leflunomide 20 mg tablet 20 mg PO DAILY minoxidil 10 mg tablet 20 mg PO DAILY Qty: 180 3RF chlorthalidone 25 mg tablet 25 mg PO DAILY Qty: 90 3RF multivitamin Capsule 1 cap PO QAM cholecalciferol (vitamin D3) [Vitamin D3] 50 mcg (2,000 unit) Tablet 2,000 unit PO DAILY Enbrel 50 mg/mL (1 mL) syringe 50 mg SUBCUT QWEEK Patient Comments: [NO ORIGINAL SIG] Referrals: Edilberto Adame MD [Primary Care Provider, Internal Medicine]
[2025-10-10 13:18] VITALS: BP 158/71; PULSE 74; RESP 16; TEMP 36.7; O2SAT 95
== END 2025-10-10 13:20 | disposition home or self-care (01) ==
PROVIDERS: Emergency Provider Student in an Organized Health Care Education/Training Program; PCP Internal Medicine
DX: L53.9 Erythematous condition, unspecified (principal); R60.0 Localized edema; Z85.820 Personal history of malignant melanoma of skin; Z98.890 Other specified postprocedural states
CPT/HCPCS: 99283

== ENCOUNTER 2025-11-02 10:20 | Emergency (ER) | payer MEDICARE, SELFPAY ==
[2024-12-11 09:41] VITALS: BMI 28.0
[2025-11-02] VITALS (10 sets, daily range): BP systolic 150–189; BP diastolic 62–83; PULSE 76–103; RESP 18–21; TEMP 36.9; O2SAT 91–97; BMI 29.2
--- NOTE | 2025-11-02 10:30 | DI.RAD.S_ITS ---
PROCEDURE: XR CHEST 1V INDICATIONS: Shortness of breath TECHNIQUE: One view of the chest was acquired. COMPARISON: [facility], CR, XR CHEST 1V, 06/03/2024, 11:11. FINDINGS: Surgical changes and devices: Bilateral breast implants are seen. Lungs and pleura: Mild pulmonary vascular congestion. No definite focal infiltrate. No pleural effusions or pneumothorax. Mediastinum: Mediastinal contours appear normal. Heart size is enlarged. Bones and chest wall: No suspicious bony lesions. Overlying soft tissues appear unremarkable. IMPRESSION: Cardiomegaly and mild congestion. No definite focal infiltrate. No pleural effusion or pneumothorax. Dictated by: Enzo Rios M.D. on 11/02/2025 at 11:19 Approved by: Enzo Rios M.D. on 11/02/2025 at 11:19
--- NOTE | 2025-11-02 10:34 | EKG_ITS ---
[place] [id number] [place] [id number] Test Date: 2025-11-02 Pat Name: Shiela Blackmon Department: Room: Gender: Female Benefits Officer: MATTKeya : 1940 Requested By: Order Number: [id number] Reading MD: Robert Heath MD Measurements Intervals [place] Rate: 76 P: -2 VA: 216 QRS: -15 QRSD: 88 T: 128 QT: 370 QTc: 416 Interpretive Statements Sinus rhythm with 1st degree AV block Minimal voltage criteria for LVH, may be normal variant ( [place] product ) Septal infarct , age undetermined T wave abnormality, consider lateral ischemia, but seen previously Electronically Signed On 11-03-2025 9:19:01 PST by Robert Heath MD
[2025-11-02 10:55] LABS: Add Manual Diff / Slide Review NO; Hematocrit 31.2 % (36-46); Hemoglobin 10.4 g/dL (12.0-16.0); Lymphocytes Absolute Auto 2500 /uL (1100-4500); Mean Corpuscular HGB Conc 33.5 % (30-36); Mean Corpuscular Hemoglobin 29.7 PG (26-34); Mean Corpuscular Volume 88.6 fL (80-100); Platelet Count 310 X10^3/uL (150-400)
[2025-11-02 10:57] LABS: INR 1.4 (0.9-1.3); Prothrombin Time 15.7 SECONDS (9.4-12.5)
[2025-11-02 11:01] LABS: Lactate (Lactic Acid) 0.8 mmol/L (0.7-2.1)
[2025-11-02 11:02] LABS: Alanine Aminotransferase 17 IU/L (<35); Albumin 4.3 g/dL (3.5-5.0); Albumin Globulin Ratio 1.3 (1.0-2.8); Alkaline Phosphatase 72 U/L (38-126); Blood Urea Nitrogen 22 mg/dL (7-17); Calcium 9.4 mg/dL (8.4-10.2); Carbon Dioxide 24 mmol/L (22-32); Chloride 103 mmol/L (98-107); Estimated Glomerular Filt Rate 50 mL/min (>60); Globulin 3.4 g/dL (1.7-4.1); Glucose 105 mg/dL (70-99); HEMOLYSIS < 15 (0-50); Potassium 4.0 mmol/L (3.4-5.1); Sodium 136 mmol/L (137-145); Total Protein 7.7 g/dL (6.3-8.2)
--- NOTE | 2025-11-02 11:06 | ED.HA ---
HPI - Headache General Chief Complaint: Shortness of Breath/Dyspnea Stated Complaint: General edema w/SOB Time Seen by Provider: 11/02/25 10:28 Mode of arrival: Ambulatory History of Present Illness HPI Narrative: Patient is an 85 year old female who presented to the ED for shortness of breath. Past medical history significant for venous insufficiency, EFRAIN, PE and DVT on eliquis, CKD stage 3, GERD, mixed hyperlipidemia, RA. Patient reports progressive shortness of breath and lower extremity swelling. She has proximal right medial thigh tenderness. Patient reports taking double dose of her chlorthalidone without any symptomatic relief. She states her has three weeks ago and she has not been eating healthy. No chest pain, diaphoresis, nausea, vomiting. Related Data Home Medications ?Medication ?Instructions ?Recorded ?Confirmed multivitamin 1 cap PO QAM 01/14/19 11/02/25 cholecalciferol (vitamin D3) 50 2,000 unit PO DAILY 04/02/20 11/02/25 mcg (2,000 unit) tablet (Vitamin D3) leflunomide 20 mg tablet 20 mg PO DAILY 03/22/22 10/17/25 etanercept 50 mg/mL (1 mL) 50 mg SUBCUT QWEEK 09/12/24 11/02/25 subcutaneous syringe (Enbrel) amoxicillin 500 mg-potassium 1 tab PO TID 10/17/25 11/02/25 clavulanate 125 mg tablet Previous Rx's ?Medication ?Instructions ?Recorded Disabled Parking Permit 1 ea Not Applicable DAILY #1 ea 05/27/23 losartan 100 mg tablet 100 mg PO DAILY #90 tabs 01/28/25 aspirin 81 mg tablet,delayed 81 mg PO DAILY #90 tabs 01/31/25 release apixaban 5 mg tablet (Eliquis) 5 mg PO BID #180 tabs 03/11/25 atorvastatin 80 mg tablet 80 mg PO BEDTIME 90 days #90 tabs 04/01/25 felodipine 10 mg tablet,extended 10 mg PO DAILY #90 tabs 04/01/25 release 24 hr chlorthalidone 25 mg tablet 25 mg PO DAILY #90 tabs 04/10/25 minoxidil 10 mg tablet 20 mg (2 x 10 mg) PO DAILY #180 04/10/25 tabs gabapentin 300 mg capsule 300 mg PO .COMPLEX #360 caps 10/29/25 omeprazole 20 mg capsule,delayed 20 mg PO DAILY #90 caps 10/29/25 release potassium chloride 20 mEq 20 meq PO DAILY #90 tabs 10/29/25 tablet,extended release(part/cryst) Allergies Allergy/AdvReac Type Severity Reaction Status Date / Time atracurium (ATRACURIUM) Allergy Unknown Verified 11/02/25 10:31 mivacurium (MIVACURIUM) Allergy Unknown Verified 11/02/25 10:31 succinylcholine Allergy Unknown Verified 11/02/25 10:31 (SUCCINYLCHOLINE) enalaprilat (From VASOTEC) AdvReac Mild cough Verified 11/02/25 10:31 Review of Systems Review of Systems Narrative: See HPI. Patient History Medical History (Updated 11/02/25 @ 15:16 by Nancy Louis MD) Venous (peripheral) insufficiency Lumbar radiculopathy Left sided sciatica Obstructive sleep apnea History of DVT (deep vein thrombosis) Cerebrovascular disease Lumbosacral radiculopathy at L5 Stage 3a chronic kidney disease (CKD) Family history of colon cancer in father History of colonic polyps GERD without esophagitis Mixed hyperlipidemia Essential hypertension Chronic anticoagulation History of pulmonary embolism Carpal tunnel syndrome Vision disorder Hearing loss Rheumatoid arthritis (~2001) Osteoarthritis Sleep apnea (~2009) Scoliosis Osteoporosis (~2019) Chronic back pain Mumps Measles Chicken pox Cataracts, bilateral (~2019) Skin cancer Uterine prolapse (~2019) History of hyperlipidemia History of pulmonary embolism Hypertension Surgical History Status post lumbar spinal fusion Anesthesia History of hysterectomy (~2020) Amputated toe of right foot (~2020) History of breast augmentation History of cholecystectomy History of hand surgery Yeboah's neuroma Melanoma (~1989) History of shoulder surgery (~2008) H/O: knee surgery History of back surgery No significant past surgical history Family History Mother Hypertension TIA (transient ischemic attack) Social History details: (Bill), grown children household members: significant other Smoking Status: Unknown if ever smoked alcohol intake frequency: a few times a week Exam Narrative Exam Narrative: Vitals reviewed. Afebrile. Hypertensive, all other vitals normals. Gen: Well developed, well nourished in no acute distress. Eyes: No scleral icterus, EOMI Card: Regular, no murmurs, rubs, gallops Pulm: Normal work of breathing, clear to auscultation bilaterally Abd: Obese, soft, nondistended, nontender Ext: 1+ pitting edema bilaterally Neuro: A&O x 4, moving all 4 extremities spontaneously Psych: Appropriate Initial Vital Signs Initial Vital Signs: Vital Signs Temperature 98.4 F 11/02/25 10:22 Pulse Rate 87 11/02/25 10:22 Respiratory Rate 18 11/02/25 10:22 Blood Pressure 189/83 H 11/02/25 10:22 Pulse Oximetry 95 11/02/25 10:22 Oxygen Delivery Method Room Air 11/02/25 10:22 Scores Wells' Criteria for PE Citation:: 1.5 points Low risk group: 1.3% chance of PE in ED population Wells' Criteria for DVT Citation:: 4 points High risk group for DVT. Course Orders Ordered: ED Orders 11/02/25 10:30 XR chest 1V Stat EKG-12 Lead Stat Measure peak expiratory flow STAT RT Consult Eval and Treat STAT 11/02/25 10:42 Complete Blood Count AUTO DIFF Stat Comprehensive Metabolic Panel Stat Lactate (Lactic Acid) Stat NT-proBNP (BNP-Adult 18+) Stat Prothrombin Time INR Stat Troponin I Stat 11/02/25 13:42 CT angio chest PE protocol Stat 11/02/25 13:48 US periph venous up extrem rt Stat Vital Signs Vital signs: Vital Signs - 8 hr 11/02/25 10:22 11/02/25 10:27 11/02/25 10:28 Temperature 98.4 F Pulse Rate 87 103 H 94 H Respiratory Rate 18 Blood Pressure 189/83 H Pulse Oximetry 95 94 96 Oxygen Delivery Method Room Air 11/02/25 10:28 11/02/25 10:30 11/02/25 10:30 Temperature Pulse Rate 82 Respiratory Rate Blood Pressure 189/83 H 174/80 H Pulse Oximetry 97 Oxygen Delivery Method 11/02/25 11:00 11/02/25 11:01 11/02/25 11:01 Temperature Pulse Rate 78 82 Respiratory Rate 19 18 Blood Pressure 150/62 H Pulse Oximetry 94 93 Oxygen Delivery Method 11/02/25 11:30 11/02/25 11:30 Temperature Pulse Rate 76 Respiratory Rate 20 Blood Pressure 175/75 H Pulse Oximetry 92 Oxygen Delivery Method MDM - Headache Lab Data 11/02/25 10:42 11/02/25 10:42 Labs: Lab Results 11/02/25 Range/Units 10:42 WBC 8.7 (4.5-11.0) X10^3/uL RBC 3.52 L (4.0-5.2) X10^6/uL Hgb 10.4 L (12.0-16.0) g/dL Hct 31.2 L (36-46) % MCV 88.6 (80-100) fL MCH 29.7 (26-34) PG MCHC 33.5 (30-36) % RDW 13.4 (11.6-14.8) % Plt Count 310 (150-400) X10^3/uL Neut % (Auto) 50.6 (50-75) % Lymph % (Auto) 28.9 (25-40) % [place] % (Auto) 12.2 (3-14) % Eos % (Auto) 7.3 H (2-4) % Baso % (Auto) 1.0 (0-2) % Neut # (Auto) 4400 (5227-3967) /uL Lymph # (Auto) 2500 (0048-0181) /uL [place] # (Auto) 1100 H (0-900) /uL Eos # (Auto) 600 H (0-450) /uL Baso # (Auto) 100 (0-100) /uL PT 15.7 H (9.4-12.5) SECONDS INR 1.4 H (0.9-1.3) Sodium 136 L (137-145) mmol/L Potassium 4.0 (3.4-5.1) mmol/L Chloride 103 (98-107) mmol/L Carbon Dioxide 24 (22-32) mmol/L BUN 22 H (7-17) mg/dL Creatinine 1.10 H (0.52-1.04) mg/dL Estimated GFR 50 L (>60) mL/min BUN/Creatinine Ratio 20.0 (6-22) Glucose 105 H (70-99) mg/dL Lactate 0.8 (0.7-2.1) mmol/L Calcium 9.4 (8.4-10.2) mg/dL Total Bilirubin 0.5 (0.2-1.3) mg/dL AST 25 (14-36) IU/L ALT 17 (<35) IU/L Alkaline Phosphatase 72 (38-126) U/L Troponin I < 0.012 (0.01-0.034) ng/mL NT-Pro-B Natriuret Pep 124 (<450) pg/mL Total Protein 7.7 (6.3-8.2) g/dL Albumin 4.3 (3.5-5.0) g/dL Globulin 3.4 (1.7-4.1) g/dL Albumin/Globulin Ratio 1.3 (1.0-2.8) Imaging Data CT scan - chest: Radiologist's Impression: PROCEDURE: CT ANGIO CHEST PE PROTOCOL INDICATIONS: r/o PE TECHNIQUE: After the administration of intravenous contrast, 2 mm thick sections acquired from the pulmonary apices to the posterior costophrenic angles. 3-dimensional maximum intensity projection (MIP) coronal and sagittal reformats were then acquired through the thorax. For radiation dose reduction, the following was used: automated exposure control, adjustment of mA and/or kV according to patient size. COMPARISON: [facility], CT, CT ANGIO CHEST PE PROTOCOL, 08/05/2021, 20:46. FINDINGS: Image quality: Diagnostic. Pulmonary arteries: Pulmonary arteries are normal in size, and demonstrate no intraluminal filling defects to suggest central pulmonary embolism. Lower Neck: No enlarged lymph nodes. Thyroid: No thyroid nodules which require sonographic follow up, per consensus guidelines. Axillae: No enlarged lymph nodes. Chest Wall: Peripheral calcifications are noted involving bilateral breast implants. Bones: No aggressive appearing bony lesions. Lungs and Pleura: No pneumothorax or pleural effusions. Dependent atelectasis/scarring in posterior aspect of bilateral lung bases are seen. Small airspace consolidation in posterior lateral aspect of right lower lobe near right lung base. Heart: Heart size is enlarged. No significant pericardial effusion. Thoracic Vessels: No aortic aneurysm. Mediastinum and Afsaneh: No enlarged lymph nodes. Esophagus: No wall thickening. No hiatal hernia. Upper Abdomen: Visualized upper abdomen solid organs and bowel loops appear normal. Bilateral renal cysts are seen. IMPRESSION: 1. No pulmonary embolus. No thoracic aortic aneurysm or gross dissection. 2. Suggestion of small right basilar infiltrate/atelectasis. Additional scattered scarring/atelectasis also noted in bilateral lung bases. No pleural effusion or pneumothorax. 3. Cardiomegaly, no significant pericardial effusion. No mediastinal or hilar lymphadenopathy by size criteria. US - DVT: Radiologist's Impression: PROCEDURE: US PERIPH VENOUS lower EXTREM RT INDICATIONS: r/o dvt TECHNIQUE: Real-time imaging, as well as color and pulse Doppler interrogation, was performed of the upper extremity deep veins from the inferior neck to the antecubital fossa. COMPARISON: None. FINDINGS: The right lower extremity veins are free of intraluminal thrombus. Where physically possible, the veins are normally compressible. Color and pulse Doppler demonstrate normal intraluminal flow, with expected phasicity and pulsatility. IMPRESSION: No findings of DVT in visualized right lower extremity veins. Chest x-ray: Radiologist's Impression: PROCEDURE: XR CHEST 1V INDICATIONS: Shortness of breath TECHNIQUE: One view of the chest was acquired. COMPARISON: [facility], , XR CHEST 1V, 06/03/2024, 11:11. FINDINGS: Surgical changes and devices: Bilateral breast implants are seen. Lungs and pleura: Mild pulmonary vascular congestion. No definite focal infiltrate. No pleural effusions or pneumothorax. Mediastinum: Mediastinal contours appear normal. Heart size is enlarged. Bones and chest wall: No suspicious bony lesions. Overlying soft tissues appear unremarkable. IMPRESSION: Cardiomegaly and mild congestion. No definite focal infiltrate. No pleural effusion or pneumothorax. [facility] Narrative Medical decision making narrative: 85 year old female with a history of hypertension, DVT and PE on Eliquis, presents with dyspnea. Differential diagnosis: ACS, PE, DVT, arrythmia, noncardiogenic pulmonary edema, venous insufficiency pneumonia, pulmonary hypertension, cardiac tamponade, anemia, other. Labs: CBC with no leukocytosis or left shift, no anemia, no thrombocytopenia. PT 15.7, INR 1.4. Chemistry with mild hyponatremia (Na 136), BUN 22, Cr 1.10 (baseline 0.96-1.07), decreased GFR 50. Normal liver enzymes. Troponin negative. BNP 124. Imaging: CXR: Normal U/S RLE: No DVT CTA chest: No evidence of PE EKG: Sinus with 1st degree heart block. HR 78, WI 216, QT 370, QTc 416, left axis deviation, nonspecific t wave abnormalities, no ectopy, no ischemia. Appears similar to EKG obtained on 06/03/2024. ED Course: Patient arrived to the ED afebrile and hypertensive, with all other vital signs within normal limits. Cardiopulmonary examination was benign. She reported new?onset lower extremity swelling. Although she is anticoagulated, her history of both DVT and PE, and Wells criteris for PE and DVT 1.5 and 4, respectively, combined with new dyspnea, prompted further evaluation. CTA of the chest and ultrasound of the proximal right medial thigh (performed due to localized pain) were obtained and were negative. ACS workup was not consistent with MT. BNP was normal. BNP can be false low in obesity, patient could have an element of venous insufficiency. Supportive measures were recommended, including compression stockings, elevating her legs when supine, and maintaining close outpatient follow-up for reassessment of symptoms. Discharge Plan Departure Patient Disposition: Home Clinical Impression: Dependent edema, Shortness of breath Activity Restrictions/Additional Instructions: You were seen in the emergency department for shortness of breath and lower extremity swelling. In the ER, your blood counts did not reveal any anemia or evidence suggestive of infection. EKG and troponin was not suggestive of a heart attack. BNP was not suggestive of heart failure. X-ray did show mild pulmonary congestion which could be contributing to your shortness of breath as well as lower extremity swelling. CT of your chest did not reveal a pulmonary embolism. Ultrasound revealed leg was not consistent with a deep vein thrombosis. As discussed, I recommend that you wear impression stockings and elevate your legs above the level of your heart at night. Continue ambulating more. Eat a low-salt diet (1500-200mg). Prescriptions: No Action amoxicillin-pot clavulanate 500-125 mg tablet 1 tab PO TID Disabled Parking Permit 1 ea Not Applicable DAILY Qty: 1 0RF losartan 100 mg tablet 100 mg PO DAILY Qty: 90 3RF aspirin 81 mg tablet,delayed release (DR/EC) 81 mg PO DAILY Qty: 90 3RF Eliquis 5 mg tablet 5 mg PO BID Qty: 180 3RF felodipine 10 mg tablet extended release 24 hr 10 mg PO DAILY Qty: 90 3RF atorvastatin 80 mg tablet 80 mg PO BEDTIME 90 Days Qty: 90 3RF omeprazole 20 mg capsule,delayed release(DR/EC) 20 mg PO DAILY Qty: 90 3RF gabapentin 300 mg capsule 300 mg PO .COMPLEX Qty: 360 3RF Rx Instructions: take one capsule in the morning and three capsules at night. This script replaces the previous script. potassium chloride 20 mEq tablet,ER particles/crystals 20 meq PO DAILY Qty: 90 3RF leflunomide 20 mg tablet 20 mg PO DAILY minoxidil 10 mg tablet 20 mg PO DAILY Qty: 180 3RF chlorthalidone 25 mg tablet 25 mg PO DAILY Qty: 90 3RF multivitamin Capsule 1 cap PO QAM cholecalciferol (vitamin D3) [Vitamin D3] 50 mcg (2,000 unit) Tablet 2,000 unit PO DAILY Enbrel 50 mg/mL (1 mL) syringe 50 mg SUBCUT QWEEK Patient Comments: [NO ORIGINAL SIG] Referrals: Jenny Lopez MD [Primary Care Provider, Family Practice] Stand Alone Forms: Patient Portal/API
[2025-11-02 11:14] LABS: NT-proBNP (BNP-Adult 18+) 124 pg/mL (<450); Troponin I < 0.012 ng/mL (0.01-0.034)
--- NOTE | 2025-11-02 13:42 | DI.CT.S_ITS ---
PROCEDURE: CT ANGIO CHEST PE PROTOCOL INDICATIONS: r/o PE TECHNIQUE: After the administration of intravenous contrast, 2 mm thick sections acquired from the pulmonary apices to the posterior costophrenic angles. 3-dimensional maximum intensity projection (MIP) coronal and sagittal reformats were then acquired through the thorax. For radiation dose reduction, the following was used: automated exposure control, adjustment of mA and/or kV according to patient size. COMPARISON: [facility], CT, CT ANGIO CHEST PE PROTOCOL, 08/05/2021, 20:46. FINDINGS: Image quality: Diagnostic. Pulmonary arteries: Pulmonary arteries are normal in size, and demonstrate no intraluminal filling defects to suggest central pulmonary embolism. Lower Neck: No enlarged lymph nodes. Thyroid: No thyroid nodules which require sonographic follow up, per consensus guidelines. Axillae: No enlarged lymph nodes. Chest Wall: Peripheral calcifications are noted involving bilateral breast implants. Bones: No aggressive appearing bony lesions. Lungs and Pleura: No pneumothorax or pleural effusions. Dependent atelectasis/scarring in posterior aspect of bilateral lung bases are seen. Small airspace consolidation in posterior lateral aspect of right lower lobe near right lung base. Heart: Heart size is enlarged. No significant pericardial effusion. Thoracic Vessels: No aortic aneurysm. Mediastinum and Afsaneh: No enlarged lymph nodes. Esophagus: No wall thickening. No hiatal hernia. Upper Abdomen: Visualized upper abdomen solid organs and bowel loops appear normal. Bilateral renal cysts are seen. IMPRESSION: 1. No pulmonary embolus. No thoracic aortic aneurysm or gross dissection. 2. Suggestion of small right basilar infiltrate/atelectasis. Additional scattered scarring/atelectasis also noted in bilateral lung bases. No pleural effusion or pneumothorax. 3. Cardiomegaly, no significant pericardial effusion. No mediastinal or hilar lymphadenopathy by size criteria. Dictated by: Enzo Rios M.D. on 11/02/2025 at 14:33 Approved by: Enzo Rios M.D. on 11/02/2025 at 14:35
--- NOTE | 2025-11-02 13:48 | DI.US.S_ITS ---
PROCEDURE: US PERIPH VENOUS lower EXTREM RT INDICATIONS: r/o dvt TECHNIQUE: Real-time imaging, as well as color and pulse Doppler interrogation, was performed of the upper extremity deep veins from the inferior neck to the antecubital fossa. COMPARISON: None. FINDINGS: The right lower extremity veins are free of intraluminal thrombus. Where physically possible, the veins are normally compressible. Color and pulse Doppler demonstrate normal intraluminal flow, with expected phasicity and pulsatility. IMPRESSION: No findings of DVT in visualized right lower extremity veins. Dictated by: Enzo Rios M.D. on 11/02/2025 at 14:44 Approved by: Enzo Rios M.D. on 11/02/2025 at 14:45
== END 2025-11-02 15:19 | disposition home or self-care (01) ==
PROVIDERS: Emergency Provider Student in an Organized Health Care Education/Training Program; PCP Family Medicine
DX: R06.02 Shortness of breath (principal); R60.0 Localized edema; I10 Essential (primary) hypertension; Z86.718 Personal history of other venous thrombosis and embolism; Z79.01 Long term (current) use of anticoagulants; Z86.711 Personal history of pulmonary embolism
CPT/HCPCS: 36415; 71045; 71275; 80053; 83605; 83880; 84484; 85025; 85610; 93005; 93010; 93971; 99283; 99284; Q9967